=== PATIENT | male | born 1945 | race Caucasian/White ===

== ENCOUNTER 2020-10-26 15:58 | Inpatient (IN) ==
[2020-10-26 18:43] LABS: Basophils # (auto) 0.03 K/uL (0-0.2); Basophils % (auto) 0.3 %; Eosinophils # (auto) 0.09 K/uL (0-0.5); Hematocrit (blood only) 38.3 % (42-52); Hemoglobin 13.2 g/dL (14.0-18.0); Immature Granulocytes # (auto) 0.02 K/uL (0.00-0.02); Immature Granulocytes % (auto) 0.2 %; Lymphocytes # (auto) 0.96 K/uL (1.2-3.4); Lymphocytes % (auto) 10.3 %; Mean Corpuscular Hemoglobin 30.5 pg (25-34); Mean Corpuscular Hgb Conc 34.5 g/dL (32-36); Mean Corpuscular Volume 88.5 fL (80-100); Mean Platelet Volume 9.1 fL (7.4-10.4); Monocytes # (auto) 0.84 K/uL (0.11-0.59); Neutrophils # (auto) 7.37 K/uL (1.4-6.5); Neutrophils % (auto) 79.2 %; Platelet Count 352 K/uL (130-400); RDW Coefficient of Variation 14.2 % (11.5-14.5); RDW Standard Deviation 46.4 fL (36.4-46.3); Red Blood Count 4.33 M/uL (4.7-6.1); White Blood Count 9.31 K/uL (4.8-10.8)
[2020-10-26 19:07] LABS: Alanine Aminotransferase 32 U/L (12-78); Albumin Level 3.2 gm/dl (3.4-5.0); Aspartate Aminotransferase 51 U/L (15-37); BUN Creatinine Ratio 18.8 (10-20); Blood Urea Nitrogen 19 mg/dl (7-18); Carbon Dioxide 27 mmol/L (21-32); Chloride 98 mmol/L (98-107); Creatinine Clr Calc Pharmacy 82.5 ml/min; Est GFR (African American) 84.5 ml/min; Est GFR (Non-African American) 72.9 ml/min; Glucose 98 mg/dl (70-99); Magnesium 2.1 mg/dl (1.8-2.4); Potassium 3.6 mmol/L (3.5-5.1); Sodium 131 mmol/L (136-145)
[2020-10-26] MEDS ORDERED: OPTIRAY 320 125ml IV ONE (19:12)
[2020-10-26 19:16] LABS: Albumin Globulin Ratio 0.6 (0.9-2); Alkaline Phosphatase 96 U/L (45-117); Bilirubin Direct 0.2 mg/dl (0-0.2); Bilirubin,Total 0.6 mg/dl (0.2-1); C Reactive Protein 1.83 mg/dl (0-0.29); NT Pro B Type Natriuretic Pept 363 pg/ml (0-900); Phosphorus 3.6 mg/dl (2.5-4.9); Total Protein 8.2 gm/dl (6.4-8.2); Troponin I < 0.015 ng/ml (0-0.045)
--- NOTE | 2020-10-26 19:57 | CT Scan Report ---
CT head/brain wo con CLINICAL HISTORY: 75 years-old Male with amaurosis fugax. Acute intermittent loss of vision within t he right eye TECHNIQUE: Multiple axial CT images of the head were obtained without contrast. A dose lowering tech nique was utilized adhering to the principles of ALARA. COMPARISON: None. FINDINGS: No acute intracranial hemorrhage, midline shift, intracranial mass, hydrocephalus, territorial ischem ia or abnormal extra-axial collection. Age-related involutional changes. Mild white matter hypodensit ies suggestive of chronic microvascular ischemic disease. Cerebral vascular calcifications. The calvarium is intact. Trace mastoid effusions. Mild mucosal thickening of the ethmoid sinuses. Pa rtially imaged left maxillary periapical cyst. Unremarkable soft tissues and orbits. IMPRESSION: No acute intracranial abnormality. ACT 112: Negative or not required by law. The above report was generated using voice recognition software. It may contain grammatical, syntax o r spelling errors. Electronically signed by: Silverio Kc M.D. 10/26/2020 7:50 PM
--- NOTE | 2020-10-26 20:29 | CT Scan Report ---
CT angio chest PE protocol, CT abd pelvis IV con only HISTORY: 75 years-old Male with PE. Acute chest and abdominal pain with weight loss TECHNIQUE: Multiple CTA images of the chest were obtained after the intravenous administration of 119 ml Optiray. Coronal and sagittal MIPS were obtained from the axial data set and were submitted for review. All measurements were obtained according to NASCET criteria. CT abdomen pelvis with IV contr ast only was also obtained. A dose lowering technique was utilized adhering to the principles of HOLLY Arias. COMPARISON: CT abdomen and pelvis 04/08/2006. FINDINGS: CTA: Mild cardiomegaly. Pericardial effusion measures up to 9 mm anteriorly. Moderate coronary artery calc ifications. Fusiform dilation of the ascending thoracic aorta, 4.7 x 4.7 cm. Extensive associated tho racic atherosclerosis. The descending thoracic aorta measures up to 3.5 cm at the level of the diaphr agmatic hiatus. No dissection. Patency of the imaged great vessels. Unremarkable pulmonary artery. No pulmonary emboli identified. CT CHEST: Unremarkable thyroid. Bulky pathologic mediastinal and hilar adenopathy include subcarinal adenopathy measuring up to 6.9 x 3.5 cm. Pathologic periesophageal retrocrural lymph nodes are also present. Th ere is circumferential masslike thickening involving the distal esophagus with paraesophageal inflamm ation. Emphysema with bulla of the left upper lobe and lingula. Bronchial wall thickening suggestive of bron chitis. No pneumothorax, pleural effusion or overt pulmonary edema. Mild linear scarring/atelectasis of the lung bases. There are 4 solid nodules of the left lower lobe which measure up to 4 mm (please see bookmarks). There are a few nodules of the right lower lobe measuring up to 6 mm on image 171. Th ere are a few solid nodules of the right middle lobe measuring up to 4 mm. Central airways are patent . Unremarkable soft tissues. Degenerative changes of the spine and shoulders. Mild wedging involving a few lower thoracic vertebral segments is likely chronic. CT ABDOMEN/PELVIS: No pneumatosis or pneumoperitoneum. The spleen measures within the upper limits of normal in size and has increased in size from comparison measuring up to 12.6 cm on today's study. There are a few scat tered ill-defined slightly hypodense lesions of the spleen, the largest which measures up to 1.2 cm w hich appears new from comparison. Unremarkable pancreas. Nodular thickening of the left greater than right adrenal gland has progressed from comparison. Unremarkable gallbladder. Hepatic steatosis. Ther e are a few scattered hepatic cysts redemonstrated measuring up to 9 mm within the left hepatic lobe. Patency of the hepatic and portal veins. Numerous bilateral renal cysts with scattered subcentimeter hypodensities, several of which are too s mall to characterize. There is a 10 mm hyperdense lesion of the inferior pole left kidney with two in termediate density 9 mm lesions of the right kidney also noted. There is increased attenuation with d istention of the superior pole and interpolar aspect of the right kidney. Mild urinary bladder wall t hickening with partial distention. Prostamegaly. 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 Pathologic bulky retroperitoneal adenopathy with pathologic gastrohepatic and periportal lymph nodes also present. Subcarinal lymph nodes are centrally necrotic, notably a 3.5 x 2.8 cm intraperitoneal l ymph node on image 149. No bowel obstruction. Mild fecal retention. Ventral abdominal wall hernia with diastases of 8.1 cm co ntains mesenteric fat and nonobstructed large and small bowel. Scattered small bowel air-fluid levels . Small left greater than right fat and bowel-containing inguinal hernias. The appendix is not diagno stically visualized. No acute fracture. Degenerative changes of the spine, pelvis and hips. IMPRESSION: 1. No pulmonary emboli. 2. Bulky pathologic adenopathy of the chest, abdomen and pelvis as above notably involves the mediast inum, lisette and retroperitoneum. Differential considerations include metastatic disease versus lymphom a. Oncologic follow-up is needed 3. Masslike thickening of the distal esophagus requires further evaluation with endoscopy. 4. The spleen measures within the upper limits of normal in size and demonstrates a few scattered ill -defined hypodensities which appear new from 2007. Follow-up recommended to exclude metastasis. 5. Large hyperattenuating filling defect measuring over 3 cm involving the superior pole and interpol ar aspect of the right kidney is suspicious for neoplasm. Hemorrhage/debris considered less likely. 6. Bowel containing ventral abdominal wall and inguinal hernias. No bowel obstruction. 7. Scattered bilateral solid pulmonary nodules measure up to 6 mm. Follow-up is needed. 8. Small to moderate pericardial effusion. 9. Bilateral renal cysts with a few subcentimeter intermediate hyperattenuating lesions as above sugg estive of hyperdense cysts versus solid lesions. Findings could be correlated with ultrasound. 10. Additionally findings as above. ACT 112: Negative or not required by law. The above report was generated using voice recognition software. It may contain grammatical, syntax o r spelling errors. Electronically signed by: Silverio Kc M.D. 10/26/2020 8:27 PM
--- NOTE | 2020-10-26 20:36 | Emergency Department Note ---
Impression & Plan Visual disturbance, Esophageal thickening, Lymphadenopathy ED Provider Note NAME: MALACHI HOOD AGE: 75 SEX: M ARRIVES VIA: Walk-In INFORMANT: Patient, ED PROVIDER(S): Juan Ramon Mills MD CHIEF COMPLAINT: Transient right eye vision loss, SOB, weight loss. PLAN: Disposition: Admit MEDICAL DECISION MAKING: The patient is a pleasant 75-year-old gentleman who presents to the emergency department [facility] of constellation of symptoms including episode of loss of vision yesterday that he describes as havi ng a blackening of his vision "like a filter", which subsequently resolved this morning in addition to progressive shortness of breath and chest tightness over the past several days which she reports has been present to some degree over the past year. He further reports that he has had recent weight loss. He denies any fevers, chills, cough, congestion, GI or symptoms. On arrival the patient is in no acute distress, afebrile stable vital signs. He has no focal neurologic deficits at this time. Visual ramos are grossly intact. Firm, mobile, nontender right supraclavicular LAD. EKG without overt acute ischemia. CXR negative for acute cardiopulmonary process . WBC and platelets wnl. H/H 13.2/38.3 without prior for comparison. ESR and CRP slightly elevated at 43 and 1.8, respectively. Chemistry without acidosis. Electrolytes unremarkable. LFTs without significant abnormality. BNP wnl. Troponin negative/undetectable. TSH wnl. UA without convincing evidence of infection. Covid-[address] head and CTA head and neck negative for ischemia, ICH or severe narrowing or occlusion of large vessels. Carotid artery disease is noted. CTA of the chest negative for PE. CT chest and abd/pelvis demonstrate bulky pathologic adenopathy of the chest, abdomen and pelvis involving the mediastinum, lisette and retroperitoneum suspicous for metastatic disease versus lymphoma. Additional f indings including masslike thickening of the distal esophagus, few scattered ill-defined splenic hypodensities, large hyperattenuating filling defect measuring over 3 cm involving the superior pole and interpolar aspect of the right kidney is suspicious for neoplasm. Scattered bilateral solid pulmonary nodules measure up to 6 mm. Small to moderate pericardial effusion and bilateral renal cysts with a few subcentimeter intermediate hyperattenuating lesions as above suggestive of hyperdense cysts versus solid lesions. I performed a limited bedside cardiac US with demonstrated small pericardial effusion without overt evidence tamponade. Upon re-evaluation the patient denied any recurrence of vi sual changes. He denies SOB at rest. Findings were reviewed. Patient agrees with plan for admission. Case was discussed with MELANIA Pulido hospitalist, who will evaluate the patient for admission. Triage Nursing notes reviewed and agree them. Prior medical records reviewed Vital Signs: reviewed and remarkable for hypertension. Differential diagnosis: Infection, dehydration, metabolic abnormality, hypo/hyperglycemia, electrolyte disturbance, anemia, hypoxia, cardiac sources, intracerebral event, toxicologic, neurologic, as well as other pathologies. ER treatment provided: See below. Diagnostics interpreted by me: ECG: Sinus rhythm with sinus arrhythmia, 91 bpm, no ectopy, no overt ST elevation or depression, QTC 450, QRS 80. Cardiac Monitoring: An order for continuous cardiac monitoring was placed and demonstrated sinus rhythm with sinus arrhythmia, 91 bpm, no ectopy. Laboratory studies: See below Imaging studies: See below Consultation(s): Case was discussed with MELANIA Pulido hospitalist, who will evaluate the patient for admission. HPI: The patient is a pleasant 75-year-old gentleman who presents to the emergency department [facility] for evaluation of constellation of symptoms including episode of loss of vision yesterday that he describes as having a blackening of his vision "like a filter", which subsequently resolved this morning in addition to progressive shortness of breath and chest tightness over the past several days which she reports has been present to some degree over the past year. He further reports that he has had recent weight loss. He denies any fevers, chills, cough, congestion, GI or symptoms. ROS: See above HPI for pertinent positives & negatives. A total of 10 systems reviewed and were otherwise negative. PAST MEDICAL HISTORY:See Below PAST SURGICAL HISTORY:See Below FAMILY HISTORY:See Below SOCIAL HISTORY:See Below HOME MEDICATIONS:See Below ALLERGIES:See Below VITALS:See Below PHYSICAL EXAMINATION: GENERAL: Awake, alert, fatigued-appearing, in no distress HENT: Normocephalic, atraumatic. Oropharynx with dry mucous membranes and otherwise unremarkable. EYES: Normal conjunctiva. Sclera non-icteric. EOMI. No nystamgus. PEARRL. NECK: Supple. No nuchal rigidity. FROM. No JVD. Firm, mobile, nontender right supraclavicular LAD. RESPIRATORY: Clear to auscultation. CARDIAC: Regular rate, normal rhythm. Extremities warm and well perfused. Pulses equal. ABDOMEN: Soft, non-distended. No tenderness to palpation. No rebound or guarding. No masses. RECTAL: Deferred. MUSCULOSKELETAL: Chest examination reveals no tenderness. The back is symmetrical on inspection without obvious abnormality. There is no CVA tenderness to palpation. No joint edema. LOWER EXTREMITIES: Calves are equal size bilaterally and non-tender. No edema. No discoloration. NEURO: Normal sensorium. No sensory or motor deficits noted. Visual ramos grossly intact. CNII-XII grossly intact. 5/5 strength and SILT x 4 extremities. Cerebellar function intact including [id number], alternating palms, [id number]. SKIN: No rash or jaundice noted. Juan Ramon Mills MD Past Med/Surg History Medical History Hypertension PTSD (post-traumatic stress disorder) Surgical History History of appendectomy History of exploratory laparotomy Family History Other Cancer Social History Smoking Status: Former smoker Second Hand Exposure: Yes (Growing up both parents smoked); Hx Alcohol Use: No Hx Substance Use: No Preferred Language: Burkinan Communication Ability: Effective Deputy County Clerk Required: No Beliefs That Will Affect Care: None Current Living Situation: Alone Feels Safe at Home: Yes Assistive Devices: Denture - Upper Allergies Allergies Allergy/AdvReac Type Severity Reaction Status Date / Time No Known Allergies Allergy Unknown Verified 10/26/20 18:47 Home Meds Home Medications Medication Instructions Recorded Confirmed lisinopril 1 tab PO DAILY 10/26/20 10/26/20 metoprolol succinate 1 tab PO DAILY 10/26/20 10/26/20 Results & Data (ED) Vital Signs Vital Signs - 24 hr 10/26/20 16:08 10/26/20 18:36 10/26/20 20:24 Temperature 36.5 C Temperature Source Temporal Artery Scan Pulse Rate 107 H Pulse Rate [Apical] 91 H 88 Respiratory Rate 18 18 12 Blood Pressure 148/73 H Blood Pressure [Right Arm] 153/99 H 153/99 H Blood Pressure Mean 98 Blood Pressure Mean [Right Arm] 117 117 Pulse Oximetry 97 99 94 Oxygen Delivery Method Room Air Sepsis Recent Fever Within 48 Hours No Sepsis New/Unexplained Change in Mental Status No Sepsis Action Taken by Nursing No Action Required 10/26/20 22:17 Temperature Temperature Source Pulse Rate Pulse Rate [Apical] 82 Respiratory Rate 24 Blood Pressure Blood Pressure [Right Arm] 174/100 H Blood Pressure Mean Blood Pressure Mean [Right Arm] 124 Pulse Oximetry 96 Oxygen Delivery Method Room Air Sepsis Recent Fever Within 48 Hours Sepsis New/Unexplained Change in Mental Status Sepsis Action Taken by Nursing Laboratory Data Attestation: I reviewed the patient's lab results. Result diagrams: 10/26/20 18:30 10/26/20 18:30 Lab Results 10/26/20 10/26/20 10/26/20 Range/Units 18:26 18:26 18:30 WBC 9.31 (4.8-10.8) K/uL RBC 4.33 L (4.7-6.1) M/uL Hgb 13.2 L (14.0-18.0) g/dL Hct 38.3 L (42-52) % MCV 88.5 (80-100) fL MCH 30.5 (25-34) pg MCHC 34.5 (32-36) g/dL RDW Std Deviation 46.4 H (36.4-46.3) fL RDW Coeff of Francois 14.2 (11.5-14.5) % Plt Count 352 (130-400) K/uL MPV 9.1 (7.4-10.4) fL Immature Gran % (Auto) 0.2 % Neut % (Auto) 79.2 % Lymph % (Auto) 10.3 % [place] % (Auto) 9.0 % Eos % (Auto) 1.0 % Baso % (Auto) 0.3 % Neut # (Auto) 7.37 H (1.4-6.5) K/uL Lymph # (Auto) 0.96 L (1.2-3.4) K/uL [place] # (Auto) 0.84 H (0.11-0.59) K/uL Eos # (Auto) 0.09 (0-0.5) K/uL Baso # (Auto) 0.03 (0-0.2) K/uL Immature Gran # (Auto) 0.02 (0.00-0.02) K/uL ESR (0-20) mm/hr Sodium (136-145) mmol/L Potassium (3.5-5.1) mmol/L Chloride (98-107) mmol/L Carbon Dioxide (21-32) mmol/L Anion Gap (3-11) BUN (7-18) mg/dl Creatinine (0.6-1.4) mg/dl Est Cr Clr Drug Dosing ml/min Est GFR ( Amer) ml/min Est GFR (Non-Af Amer) ml/min BUN/Creatinine Ratio (10-20) Glucose (70-99) mg/dl Calcium (8.5-10.1) mg/dl Phosphorus (2.5-4.9) mg/dl Magnesium (1.8-2.4) mg/dl Total Bilirubin (0.2-1) mg/dl Direct Bilirubin (0-0.2) mg/dl AST (15-37) U/L ALT (12-78) U/L Alkaline Phosphatase (45-117) U/L Troponin I (0-0.045) ng/ml C-Reactive Protein (0-0.29) mg/dl NT-Pro-B Natriuret Pep (0-900) pg/ml Total Protein (6.4-8.2) gm/dl Albumin (3.4-5.0) gm/dl Globulin (2.5-4.0) gm/dl Albumin/Globulin Ratio (0.9-2) TSH (0.300-4.500) uIu/ml COVID-19 Eval Order Covid19 at [facility] SARS-CoV-2 (PCR) NEGATIVE (Negative) 10/26/20 10/26/20 Range/Units 18:30 18:30 WBC (4.8-10.8) K/uL RBC (4.7-6.1) M/uL Hgb (14.0-18.0) g/dL Hct (42-52) % MCV (80-100) fL MCH (25-34) pg MCHC (32-36) g/dL RDW Std Deviation (36.4-46.3) fL RDW Coeff of Francois (11.5-14.5) % Plt Count (130-400) K/uL MPV (7.4-10.4) fL Immature Gran % (Auto) % Neut % (Auto) % Lymph % (Auto) % [place] % (Auto) % Eos % (Auto) % Baso % (Auto) % Neut # (Auto) (1.4-6.5) K/uL Lymph # (Auto) (1.2-3.4) K/uL [place] # (Auto) (0.11-0.59) K/uL Eos # (Auto) (0-0.5) K/uL Baso # (Auto) (0-0.2) K/uL Immature Gran # (Auto) (0.00-0.02) K/uL ESR 43 H (0-20) mm/hr Sodium 131 L (136-145) mmol/L Potassium 3.6 (3.5-5.1) mmol/L Chloride 98 (98-107) mmol/L Carbon Dioxide 27 (21-32) mmol/L Anion Gap 6.0 (3-11) BUN 19 H (7-18) mg/dl Creatinine 1.01 (0.6-1.4) mg/dl Est Cr Clr Drug Dosing 82.5 ml/min Est GFR ( Amer) 84.5 ml/min Est GFR (Non-Af Amer) 72.9 ml/min BUN/Creatinine Ratio 18.8 (10-20) Glucose 98 (70-99) mg/dl Calcium 9.0 (8.5-10.1) mg/dl Phosphorus 3.6 (2.5-4.9) mg/dl Magnesium 2.1 (1.8-2.4) mg/dl Total Bilirubin 0.6 (0.2-1) mg/dl Direct Bilirubin 0.2 (0-0.2) mg/dl AST 51 H (15-37) U/L ALT 32 (12-78) U/L Alkaline Phosphatase 96 (45-117) U/L Troponin I < 0.015 (0-0.045) ng/ml C-Reactive Protein 1.83 H (0-0.29) mg/dl NT-Pro-B Natriuret Pep 363 (0-900) pg/ml Total Protein 8.2 (6.4-8.2) gm/dl Albumin 3.2 L (3.4-5.0) gm/dl Globulin 5.0 H (2.5-4.0) gm/dl Albumin/Globulin Ratio 0.6 L (0.9-2) TSH 4.260 (0.300-4.500) uIu/ml COVID-19 Eval Order SARS-CoV-2 (PCR) (Negative) Administered Medications Discontinued Medications Ioversol (Optiray 320 125ml) 119 ml IV ONCE ONE Stop: 10/26/20 19:13 Last Admin: 10/26/20 19:13 Dose: 1 ml Documented by: [id number] Imaging Data Radiologist's Impression: Abdomen/Pelvis CT 10/26/20 18:11 CT angio chest PE protocol, CT abd pelvis IV con only HISTORY: 75 years-old Male with PE. Acute chest and abdominal pain with weight loss TECHNIQUE: Multiple CTA images of the chest were obtained after the intravenous administration of 119 ml Optiray. Coronal and sagittal MIPS were obtained from the axial data set and were submitted for review. All measurements were obtained according to NASCET criteria. CT abdomen pelvis with IV contrast only was also obtained. A dose lowering technique was utilized adhering to the principles of ALARA. COMPARISON: CT abdomen and pelvis 04/08/2006. FINDINGS: CTA: Mild cardiomegaly. Pericardial effusion measures up to 9 mm anteriorly. Moderate coronary artery calcifications. Fusiform dilation of the ascending thoracic aorta, 4.7 x 4.7 cm. Extensive associated thoracic atherosclerosis. The descending thoracic aorta measures up to 3.5 cm at the level of the diaphragmatic hiatus. No dissection. Patency of the imaged great vessels. Unremarkable pulmonary artery. No pulmonary emboli identified. CT CHEST: Unremarkable thyroid. Bulky pathologic mediastinal and hilar adenopathy include subcarinal adenopathy measuring up to 6.9 x 3.5 cm. Pathologic periesophageal retrocrural lymph nodes are also present. There is circumferential masslike thickening involving the distal esophagus with paraesophageal inflammation. Emphysema with bulla of the left upper lobe and lingula. Bronchial wall thickening suggestive of bronchitis. No pneumothorax, pleural effusion or overt pulmonary edema. Mild linear scarring/atelectasis of the lung bases. There are 4 solid nodules of the left lower lobe which measure up to 4 mm (please see bookmarks). There are a few nodules of the right lower lobe measuring up to 6 mm on image 171. There are a few solid nodules of the right middle lobe measuring up to 4 mm. Central airways are patent. Unremarkable soft tissues. Degenerative changes of the spine and shoulders. Mild wedging involving a few lower thoracic vertebral segments is likely chronic. CT ABDOMEN/PELVIS: No pneumatosis or pneumoperitoneum. The spleen measures within the upper limits of normal in size and has increased in size from comparison measuring up to 12.6 cm on today's study. There are a few scattered ill-defined slightly hypodense lesions of the spleen, the largest which measures up to 1.2 cm which appears new from comparison. Unremarkable pancreas. Nodular thickening of the left greater t cope right adrenal gland has progressed from comparison. Unremarkable gallbladder. Hepatic steatosis. There are a few scattered hepatic cysts redemonstrated measuring up to 9 mm within the left hepatic lobe. Patency of the hepatic and portal veins. Numerous bilateral renal cysts with scattered subcentimeter hypodensities, several of which are too small to characterize. There is a 10 mm hyperdense lesion of the inferior pole left kidney with two intermediate density 9 mm lesions of the right kidney also noted. There is increased attenuation with distention of the superior pole and interpolar aspect of the right kidney. Mild urinary bladder wall thickening with partial distention. Prostamegaly. 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 Pathologic bulky retroperitoneal adenopathy with pathologic gastrohepatic and periportal lymph nodes also present. Subcarinal lymph nodes are centrally necrotic, notably a 3.5 x 2.8 cm intraperitoneal lymph node on image 149. No bowel obstruction. Mild fecal retention. Ventral abdominal wall hernia with diastases of 8.1 cm contains mesenteric fat and nonobstructed large and small bowel. Scattered small bowel air-fluid levels. Small left greater than right fat and bowel-containing inguinal hernias. The appendix is not diagnostically visualized. No acute fracture. Degenerative changes of the spine, pelvis and hips. IMPRESSION: 1. No pulmonary emboli. 2. Bulky pathologic adenopathy of the chest, abdomen and pelvis as above notably involves the mediastinum, lisette and retroperitoneum. Differential considerations include metastatic disease versus lymphoma. Oncologic follow-up is needed 3. Masslike thickening of the distal esophagus requires further evaluation with endoscopy. 4. The spleen measures within the upper limits of normal in size and demonstrates a few scattered ill-defined hypodensities which appear new from 2006. Follow-up recommended to exclude metastasis. 5. Large hyperattenuating filling defect measuring over 3 cm involving the superior pole and interpolar aspect of the right kidney is suspicious for neoplasm. Hemorrhage/debris considered less likely. 6. Bowel containing ventral abdominal wall and inguinal hernias. No bowel obstruction. 7. Scattered bilateral solid pulmonary nodules measure up to 6 mm. Follow-up is needed. 8. Small to moderate pericardial effusion. 9. Bilateral renal cysts with a few subcentimeter intermediate hyperattenuating lesions as above suggestive of hyperdense cysts versus solid lesions. Findings could be correlated with ultrasound. 10. Additionally findings as above. ACT 112: Negative or not required by law. The above report was generated using voice recognition software. It may contain grammatical, syntax or spelling errors. Electronically signed by: Silverio Kc M.D. 10/26/2020 8:27 PM Chest CTA 10/26/20 18:11 CT angio chest PE protocol, CT abd pelvis IV con only HISTORY: 75 years-old Male with PE. Acute chest and abdominal pain with weight loss TECHNIQUE: Multiple CTA images of the chest were obtained after the intravenous administration of 119 ml Optiray. Coronal and sagittal MIPS were obtained from the axial data set and were submitted for review. All measurements were obtained according to NASCET criteria. CT abdomen pelvis with IV contrast only was also obtained. A dose lowering technique was utilized adhering to the principles of ALARA. COMPARISON: CT abdomen and pelvis 04/08/2006. FINDINGS: CTA: Mild cardiomegaly. Pericardial effusion measures up to 9 mm anteriorly. Moderate coronary artery calcifications. Fusiform dilation of the ascending thoracic a jimbo, 4.7 x 4.7 cm. Extensive associated thoracic atherosclerosis. The descending thoracic aorta measures up to 3.5 cm at the level of the diaphragmatic hiatus. No dissection. Patency of the imaged great vessels. Unremarkable pulmonary artery. No pulmonary emboli identified. CT CHEST: Unremarkable thyroid. Bulky pathologic mediastinal and hilar adenopathy include subcarinal adenopathy measuring up to 6.9 x 3.5 cm. Pathologic periesophageal re trocrural lymph nodes are also present. There is circumferential masslike thickening involving the distal esophagus with paraesophageal inflammation. Emphysema with bulla of the left upper lobe and lingula. Bronchial wall thickening suggestive of bronchitis. No pneumothorax, pleural effusion or overt pulmonary edema. Mild linear scarring/atelectasis of the lung bases. There are 4 solid nodules of the left lower lobe which measure up to 4 mm (please see bookmarks). There are a few nodules of the right lower lobe measuring up to 6 mm on image 171. There are a few solid nodules of the right middle lobe measuring up to 4 mm. Central airways are patent. Unremarkable soft tissues. Degenerative changes of the spine and shoulders. Mild wedging involving a few lower thoracic vertebral segments is likely chronic. CT ABDOMEN/PELVIS: No pneumatosis or pneumoperitoneum. The spleen measures within the upper limits of normal in size and has increased in size from comparison measuring up to 12.6 cm on today's study. There are a few scattered ill-defined slightly hypodense lesions of the spleen, the largest which measures up to 1.2 cm which appears new from comparison. Unremarkable pancreas. Nodular thickening of the left greater than right adrenal gland has progressed from comparison. Unremarkable gallbladder. Hepatic steatosis. There are a few scattered hepatic cysts redemonstrated measuring up to 9 mm within the left hepatic lobe. Patency of the hepatic and portal veins. Numerous bilateral renal cysts with scattered subcentimeter hypodensities, several of which are too small to characterize. There is a 10 mm hyperdense lesion of the inferior pole left kidney with two intermediate density 9 mm lesions of the right kidney also noted. There is increased attenuation with distention of the superior pole and interpolar aspect of the right kidney. Mild urinary bladder wall thickening with partial distention. Prostamegaly. 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 Pathologic bulky retroperitoneal adenopathy with pathologic gastrohepatic and periportal lymph nodes also present. Subcarinal lymph nodes are centrally necrotic, notably a 3.5 x 2.8 cm intraperitoneal lymph node on image 149. No bowel obstruction. Mild fecal retention. Ventral abdominal wall hernia with diastases of 8.1 cm contains mesenteric fat and nonobstructed large and small bowel. Scattered small bowel air-fluid levels. Small left greater than right fat and bowel-containing inguinal hernias. The appendix is not diagnostically visualized. No acute fracture. Degenerative changes of the spine, pelvis and hips. IMPRESSION: 1. No pulmonary emboli. 2. Bulky pathologic adenopathy of the chest, abdomen and pelvis as above notably involves the mediastinum, lisette and retroperitoneum. Differential considerations include metastatic disease versus lymphoma. Oncologic follow-up is needed 3. Masslike thickening of the distal esophagus requires further evaluation with endoscopy. 4. The spleen measures within the upper limits of normal in size and demonstrates a few scattered ill-defined hypodensities which appear new from 2006. Follow-up recommended to exclude metastasis. 5. Large hyperattenuating filling defect measuring over 3 cm involving the superior pole and interpolar aspect of the right kidney is suspicious for neoplasm. Hemorrhage/debris considered less likely. 6. Bowel containing ventral abdominal wall and inguinal hernias. No bowel obstruction. 7. Scattered bilateral solid pulmonary nodules measure up to 6 mm. Follow-up is needed. 8. Small to moderate pericardial effusion. 9. Bilateral renal cysts with a few subcentimeter intermediate hyperattenuating lesions as above suggestive of hyperdense cysts versus solid lesions. Findings could be correlated with ultrasound. 10. Additionally findings as above. ACT 112: Negative or not required by law. The above report was generated using voice recognition software. It may contain grammatical, syntax or spelling errors. Electronically signed by: Silverio Kc M.D. 10/26/2020 8:[address] 10/26/20 18:11 CT head/brain wo con CLINICAL HISTORY: 75 years-old Male with amaurosis fugax. Acute intermittent loss of vision within the right eye TECHNIQUE: Multiple axial CT images of the head were obtained without contrast. A dose lowering technique was utilized adhering to the principles of ALARA. COMPARISON: None. FINDINGS: No acute intracranial hemorrhage, midline shift, intracranial mass, hydrocephalus, territorial ischemia or abnormal extra-axial collection. Age-related involutional changes. Mild white matter hypodensities suggestive of chronic microvascular ischemic disease. Cerebral vascular calcifications. The calvarium is intact. Trace mastoid effusions. Mild mucosal thickening of the ethmoid sinuses. Partially imaged left maxillary periapical cyst. Unremarkable soft tissues and orbits. IMPRESSION: No acute intracranial abnormality. ACT 112: Negative or not required by law. The above report was generated using voice recognition software. It may contain grammatical, syntax or spelling errors. Electronically signed by: Silverio Kc M.D. 10/26/2020 7:50 PM Head CTA 10/26/20 18:11 CT angio neck with con, CT angio head w con CLINICAL HISTORY: 75 years-old Male with amaurosis fugax. Acute loss of vision within the right thigh COMPARISON STUDY: Head CT and CTA chest of same day TECHNIQUE: Following the IV administration of 119 mL of Optiray, CT angiogram of the head and neck was performed from the aortic arch to the skull apex. Images are reviewed in the axial, sagittal, and coronal planes. 3-D MIPS images are created and assessed. IV contrast was administered without complication. All measurements were calculated based on NASCET criteria. A dose lowering technique was utilized adhering to the principles of ALARA. CT DOSE: 3226.25 mGy.cm FINDINGS: Bulky pathologic mediastinal, and bilateral supraclavicular adenopathy. Emphysema. No pneumothorax. Degenerative changes of the spine. Trace mastoid effusions. No suspicious bone lesions. Atherosclerosis of the aorta. Patency of the innominate and imaged subclavian arteries. Mild to moderate atherosclerosis of the common carotid arteries. Severe atherosclerosis of the right carotid bulb and proximal right ICA results in approximately 50% luminal narrowing. Moderate to extensive atherosclerosis of the left carotid bulb and proximal left ICA results in less than 50% stenosis. Tortuosity of the distal cervical segments. Atherosclerosis of the cavernous and supraclinoid segments without significant stenosis. Areas of mild luminal narrowing involving the right MCA. The middle and anterior cerebral arteries are otherwise patent and unremarkable. Dominant right vertebral artery. The vertebral arteries are patent and otherwise within normal limits. The basilar and posterior cerebral arteries. Cerebral venous sinuses are patent. No abnormal intracranial enhancement. IMPRESSION: 1. Severe atherosclerotic plaque of the right carotid bulb and proximal right ICA results in 50% stenosis. 2. Moderate to extensive atherosclerosis of the left carotid bulb and proximal left ICA results in less than 50% stenosis. 3. Otherwise unremarkable CTA of the head and neck. 4. Bulky pathologic mediastinal and supraclavicular adenopathy suspicious for lymphoma. ACT 112: Negative or not required by law. The above report was generated using voice recognition software. It may contain grammatical, syntax or spelling errors. Electronically signed by: Silverio Kc M.D. 10/26/2020 8:35 PM Neck CTA 10/26/20 18:11 CT angio neck with con, CT angio head w con CLINICAL HISTORY: 75 years-old Male with amaurosis fugax. Acute loss of vision within the right thigh COMPARISON STUDY: Head CT and CTA chest of same day TECHNIQUE: Following the IV administration of 119 mL of Optiray, CT angiogram of the head and neck was performed from the aortic arch to the skull apex. Images are reviewed in the axial, sagittal, and coronal planes. 3-D MIPS images are created and assessed. IV contrast was administered without complication. All measurements were calculated based on NASCET criteria. A dose lowering technique was utilized adhering to the principles of ALARA. CT DOSE: 3226.25 mGy.cm FINDINGS: Bulky pathologic mediastinal, and bilateral supraclavicular adenopathy. Emphysema. No pneumothorax. Degenerative changes of the spine. Trace mastoid effusions. No suspicious bone lesions. Atherosclerosis of the aorta. Patency of the innominate and imaged subclavian arteries. Mild to moderate atherosclerosis of the common carotid arteries. Severe atherosclerosis of the right carotid bulb and proximal right ICA results in approximately 50% luminal narrowing. Moderate to extensive atherosclerosis of the left carotid bulb and proximal left ICA results in less than 50% stenosis. Tortuosity of the distal cervical segments. Atherosclerosis of the cavernous and supraclinoid segments without significant stenosis. Areas of mild luminal narrowing involving the right MCA. The middle and anterior cerebral arteries are otherwise patent and unremarkable. Dominant right vertebral artery. The vertebral arteries are patent and otherwise within normal limits. The basilar and posterior cerebral arteries. Cerebral venous sinuses are patent. No abnormal intracranial enhancement. IMPRESSION: 1. Severe atherosclerotic plaque of the right carotid bulb and proximal right ICA results in 50% stenosis. 2. Moderate to extensive atherosclerosis of the left carotid bulb and proximal left ICA results in less than 50% stenosis. 3. Otherwise unremarkable CTA of the head and neck. 4. Bulky pathologic mediastinal and supraclavicular adenopathy suspicious for lymphoma. ACT 112: Negative or not required by law. The above report was generated using voice recognition software. It may contain grammatical, syntax or spelling errors. Electronically signed by: Silverio Kc M.D. 10/26/2020 8:35 PM Discharge Plan Visit Data Chief Complaint: Illness Stated Complaint: ILLNESS ED Provider: Juan Ramon Mills Discharge Problem: Visual disturbance, Esophageal thickening, Lymphadenopathy Patient Disposition: Admitted As Inpatient Discharge Instructions Interventions: ED Discharge Assessment Last Done: 10/27/20 01:18
--- NOTE | 2020-10-26 20:37 | CT Scan Report ---
CT angio neck with con, CT angio head w con CLINICAL HISTORY: 75 years-old Male with amaurosis fugax. Acute loss of vision within the right th igh COMPARISON STUDY: Head CT and CTA chest of same day TECHNIQUE: Following the IV administration of 119 mL of Optiray, CT angiogram of the head and neck wa s performed from the aortic arch to the skull apex. Images are reviewed in the axial, sagittal, and c oronal planes. 3-D MIPS images are created and assessed. IV contrast was administered without complic ation. All measurements were calculated based on NASCET criteria. A dose lowering technique was util ized adhering to the principles of ALARA. CT DOSE: 3226.25 mGy.cm FINDINGS: Bulky pathologic mediastinal, and bilateral supraclavicular adenopathy. Emphysema. No pneumothorax. D egenerative changes of the spine. Trace mastoid effusions. No suspicious bone lesions. Atherosclerosis of the aorta. Patency of the innominate and imaged subclavian arteries. Mild to moder ate atherosclerosis of the common carotid arteries. Severe atherosclerosis of the right carotid bulb and proximal right ICA results in approximately 50% luminal narrowing. Moderate to extensive atherosc lerosis of the left carotid bulb and proximal left ICA results in less than 50% stenosis. Tortuosity of the distal cervical segments. Atherosclerosis of the cavernous and supraclinoid segments without s ignificant stenosis. Areas of mild luminal narrowing involving the right MCA. The middle and anterior cerebral arteries are otherwise patent and unremarkable. Dominant right vertebral artery. The verteb ral arteries are patent and otherwise within normal limits. The basilar and posterior cerebral arteri es. Cerebral venous sinuses are patent. No abnormal intracranial enhancement. IMPRESSION: 1. Severe atherosclerotic plaque of the right carotid bulb and proximal right ICA results in 50% sten osis. 2. Moderate to extensive atherosclerosis of the left carotid bulb and proximal left ICA results in le ss than 50% stenosis. 3. Otherwise unremarkable CTA of the head and neck. 4. Bulky pathologic mediastinal and supraclavicular adenopathy suspicious for lymphoma. ACT 112: Negative or not required by law. The above report was generated using voice recognition software. It may contain grammatical, syntax o r spelling errors. Electronically signed by: Silverio Kc M.D. 10/26/2020 8:35 PM
--- NOTE | 2020-10-26 22:21 | History & Physical Report ---
Date of Service October 26, 2020 Assessment & Plan (1) Visual disturbance: Plan: 75yo male with second episode of monocular visual disturbance. Patient describes "a filter" over his right eye as well as darkened vision with streaking. He has an moderately elevated ESR as well of 43. No additional evidence for GCA. Patient found with severe atherosclerotic plaque of the right carotid bulb and proximal right ICA with 50% stenosis. Ddx to include carotid disease, cardioembolic phenomenon. ?GCA given elevation of ESR - with findings of diffuse bulky LAD this may be co-occurring with lymphoma - may be seen in [facility]? -Check 2D echo -Check A1C and Lipid panel -[facility] -Will hold on ASA for now as patient may require excisional biopsy in the near future. -Will hold off on Steroids for now as patient may be getting biopsy in AM - ?alteration of results (2) Lymphadenopathy: Plan: Patient incidentally found to have bulky pathologic adenopathy of chest, abdomen and pelvis suspicious for lymphoma. Will need to have biopsy performed for diagnosis. Findings concerning for lymphoma vs metastatic disease. Additional findings of concern include masslike thickening of the distal esophagus as well as several ill-defined hypodensities in the spleen which may represent metastasis, large lesion of superior pole of right kidney suspicious for neoplasm and small to moderate pericardial effusion (bedside US per ER attending with no tamponade physiology) -General surgery assistance appreciated -NPO after midnight -Oncology consultation appreciated Findings of diffuse lymphadenopathy briefly discussed with patient at time of admission. Explained to him that a biopsy would be needed for further diagnosis. (3) Esophageal thickening: Plan: CT of the chest revealed masslike thickening of the distal esophagus. ?Malignant process. He denies pain or difficulty swallowing. -GI consultation appreciated for possible EGD -Patient is NPO (4) Hypertension: Plan: Blood pressure well controlled at present. He is currently taking Lisinopril and Metoprolol, uncertain of doses. -Hold for now, request records -Continue to monitor blood pressure Plan: F/E/N - Heplock. Electroltyes WNL. NPO for now Ppx - SCDs Code - Full per discussion with patient Dispo - Admit to medical with telemetry monitoring History of Present Illness Chief Complaint: right visual loss Primary Care Provider: NO PCP Zhen Morales is a 75yo male with history of HTN presenting with transient monocular visual disturbance. Patient's first event occurred appx 3 weeks ago when he had an episode of visual disturbance in his right eye. He describes it as "a filter" covering his eye. He denies eye pain, headache, scalp tenderness, jaw claudication. He reports feeling generalized fatigue and malaise during this episode and his symptoms lasted appx 3 days then returned to normal. This morning around 11:00 patient had a similar episode - states that he had "a filter" over his right eye. Then his vision became dark with blue streaks. [facility] these symptoms and was subsequently sent to the ER. He reports approximately 70% improvement in his symptoms since this AM. He denies fever/chills/weakness/fatigue. Denies headache/scalp tenderness/jaw claudication/rashes/shoulder girdle weakness/focal numbness or weakness. He denies nausea/vomiting/diarrhea/constipation. Denies slurred speech. Patient found to have bulky LAD in neck, chest and abdomen on imaging. He does endorse some unintentional weight loss - reports his weight was 276# on 05/24/20 then was 229# today. Denies night sweats. Appetite has been decreased since May. No additional complaints at this time. Allergies Allergy/AdvReac Type Severity Reaction Status Date / Time No Known Allergies Allergy Unknown Verified 10/26/20 18:47 Home Medications Medication Instructions Recorded Confirmed Type lisinopril 1 tab PO DAILY 10/26/20 10/26/20 History metoprolol succinate 1 tab PO DAILY 10/26/20 10/26/20 History Past Med/Surg History Medical History (Updated 10/27/20 @ 00:01 by Ananya Neves DO) Hypertension PTSD (post-traumatic stress disorder) Surgical History (Updated 10/26/20 @ 23:55 by Ananya Neves DO) History of appendectomy History of exploratory laparotomy Family History (Updated 10/26/20 @ 23:56 by Ananya Neves DO) Other Cancer Social History (Updated 10/26/20 @ 23:56 by Ananya Neves DO) Smoking Status: Former smoker Hx Alcohol Use: No Hx Substance Use: No Feels Safe at Home: Yes Review of Systems Review of Systems: All systems reviewed & are unremarkable except as noted in HPI & below Physical Exam Physical Exam: General: patient resting comfortably, NAD, non-toxic in appearance, AA&O x 4 Skin: warm, dry, intact, scattered bruises on forearms and hands HEENT: NC/AT, PERRL, EOMI, anicteric sclera, conjunctiva without injection, external ear normal to inspection and nontender, nares patent, moist mucus membranes, dentition intact, no oropharyngeal lesions, neck supple, trachea midline, +LAD - firm palpable node right neck, mobile, nontender, no thyromegaly, no JVD Heart: +S1/S2, regular, no m/r/g Lungs: equal air entry bilaterally, no rales/rhonchi/wheezes Abd: +BS, soft, NT/ND, post-operative changes, no masses/organomegaly/ascites Ext: warm, 2+ pulses in UE/LE bilaterally, no clubbing/cyanosis or edema Neuro: nonfocal, patient AA&O x 4, speech intact, no facial droop, moving all extremities on command with equal strength 5/5 Results & Data Results & Data ([facility]) Vital Signs (Past 12 Hours) Vital Signs Temp Pulse Pulse Resp BP BP Pulse Ox 10/26/20 22:17 82 24 174/100 H 96 10/26/20 20:24 88 12 153/99 H 94 10/26/20 18:36 91 H 18 153/99 H 99 10/26/20 16:08 36.5 C 107 H 18 148/73 H 97 Laboratory Results Laboratory Results WBC 9.31 K/uL (4.8-10.8) 10/26/20 18:30 RBC 4.33 M/uL (4.7-6.1) L 10/26/20 18:30 Hgb 13.2 g/dL (14.0-18.0) L 10/26/20 18:30 Hct 38.3 % (42-52) L 10/26/20 18:30 MCV 88.5 fL (80-100) 10/26/20 18:30 MCH 30.5 pg (25-34) 10/26/20 18:30 MCHC 34.5 g/dL (32-36) 10/26/20 18:30 RDW Std Deviation 46.4 fL (36.4-46.3) H 10/26/20 18:30 RDW Coeff of Francois 14.2 % (11.5-14.5) 10/26/20 18:30 Plt Count 352 K/uL (130-400) 10/26/20 18: MPV 9.1 fL (7.4-10.4) 10/26/20 18:30 Immature Gran % (Auto) 0.2 % 10/26/20 18:30 Neut % (Auto) 79.2 % 10/26/20 18:30 Lymph % (Auto) 10.3 % 10/26/20 18:30 Pine % (Auto) 9.0 % 10/26/20 18:30 Eos % (Auto) 1.0 % 10/26/20 18:30 Baso % (Auto) 0.3 % 10/26/20 18: Neut # (Auto) 7.37 K/uL (1.4-6.5) H 10/26/20 18:30 Lymph # (Auto) 0.96 K/uL (1.2-3.4) L 10/26/20 18:30 Pine # (Auto) 0.84 K/uL (0.11-0.59) H 10/26/20 18:30 Eos # (Auto) 0.09 K/uL (0-0.5) 10/26/20 18:30 Baso # (Auto) 0.03 K/uL (0-0.2) 10/26/20 18: Immature Gran # (Auto) 0.02 K/uL (0.00-0.02) 10/26/20 18:30 ESR 43 mm/hr (0-20) H 10/26/20 18:30 Sodium 131 mmol/L (136-145) L 10/26/20 18:30 Potassium 3.6 mmol/L (3.5-5.1) 10/26/20 18:30 Chloride 98 mmol/L (98-107) 10/26/20 18:30 Carbon Dioxide 27 mmol/L (21-32) 10/26/20 18:30 Anion Gap 6.0 (3-11) 10/26/20 18:30 BUN 19 mg/dl (7-18) H 10/26/20 18:30 Creatinine 1.01 mg/dl (0.6-1.4) 10/26/20 18:30 Est Cr Clr Drug Dosing 82.5 ml/min 10/26/20 18:30 Est GFR ( Amer) 84.5 ml/min 10/26/20 18:30 Est GFR (Non-Af Amer) 72.9 ml/min 10/26/20 18:30 BUN/Creatinine Ratio 18.8 (10-20) 10/26/20 18:30 Glucose 98 mg/dl (70-99) 10/26/20 18:30 Calcium 9.0 mg/dl (8.5-10.1) 10/26/20 18:30 Phosphorus 3.6 mg/dl (2.5-4.9) 10/26/20 18:30 Magnesium 2.1 mg/dl (1.8-2.4) 10/26/20 18:30 Total Bilirubin 0.6 mg/dl (0.2-1) 10/26/20 18:30 Direct Bilirubin 0.2 mg/dl (0-0.2) 10/26/20 18:30 AST 51 U/L (15-37) H 10/26/20 18:30 ALT 32 U/L (12-78) 10/26/20 18:30 Alkaline Phosphatase 96 U/L (45-117) 10/26/20 18:30 Troponin I < 0.015 ng/ml (0-0.045) 10/26/20 18:30 C-Reactive Protein 1.83 mg/dl (0-0.29) H 10/26/20 18:30 NT-Pro-B Natriuret Pep 363 pg/ml (0-900) 10/26/20 18:30 Total Protein 8.2 gm/dl (6.4-8.2) 10/26/20 18:30 Albumin 3.2 gm/dl (3.4-5.0) L 10/26/20 18:30 Globulin 5.0 gm/dl (2.5-4.0) H 10/26/20 18:30 Albumin/Globulin Ratio 0.6 (0.9-2) L 10/26/20 18:30 TSH 4.260 uIu/ml (0.300-4.500) 10/26/20 18:30 Urine Color Yellow 10/26/20 22:45 Urine Appearance Cloudy (Clear) A 10/26/20 22:45 Urine pH 6.0 (4.5-7.5) 10/26/20 22:45 Ur Specific [place] > 1.045 (1.000-1.030) H 10/26/20 22:45 Urine Protein Trace (Negative) H 10/26/20 22:45 Urine Glucose (UA) Negative (Negative) 10/26/20 22:45 Urine Ketones Negative (Negative) 10/26/20 22:45 Urine Blood 3+ (Negative) H 10/26/20 22:45 Urine Nitrite Negative (Negative) 10/26/20 22:45 Urine Bilirubin Negative (Negative) 10/26/20 22:45 Urine Urobilinogen Negative (Negative) 10/26/20 22:45 Ur Leukocyte Esterase Negative (Negative) 10/26/20 22:45 Urine WBC (Auto) 5-10 /hpf (0-5) H 10/26/20 22:45 Urine RBC (Auto) >30 /hpf (0-4) H 10/26/20 22:45 U Hyaline Cast (Auto) 5-10 /lpf (0-5) H 10/26/20 22:45 U Epithel Cells (Auto) 10-20 /lpf (0-5) H 10/26/20 22:45 Urine Bacteria (Auto) Negative (Negative) 10/26/20 22:45 COVID-19 Eval Order Covid19 at [facility] 10/26/20 18:26 SARS-CoV-2 (PCR) NEGATIVE (Negative) 10/26/20 18:26 Impressions Abdomen/Pelvis CT 10/26/20 18:11 CT angio chest PE protocol, CT abd pelvis IV con only HISTORY: 75 years-old Male with PE. Acute chest and abdominal pain with weight loss TECHNIQUE: Multiple CTA images of the chest were obtained after the intravenous administration of 119 ml Optiray. Coronal and sagittal MIPS were obtained from the axial data set and were submitted for review. All measurements were obtained according to NASCET criteria. CT abdomen pelvis with IV contrast only was also obtained. A dose lowering technique was utilized adhering to the principles of ALARA. COMPARISON: CT abdomen and pelvis 04/08/2006. FINDINGS: CTA: Mild cardiomegaly. Pericardial effusion measures up to 9 mm anteriorly. Moderate coronary artery calcifications. Fusiform dilation of the ascending thoracic aorta, 4.7 x 4.7 cm. Extensive associated thoracic atherosclerosis. The descending thoracic aorta measures up to 3.5 cm at the level of the diaphragmatic hiatus. No dissection. Patency of the imaged great vessels. Unremarkable pulmonary artery. No pulmonary emboli identified. CT CHEST: Unremarkable thyroid. Bulky pathologic mediastinal and hilar adenopathy include subcarinal adenopathy measuring up to 6.9 x 3.5 cm. Pathologic periesophageal retrocrural lymph nodes are also present. There is circumferential masslike thickening involving the distal esophagus with paraesophageal inflammation. Emphysema with bulla of the left upper lobe and lingula. Bronchial wall thickening suggestive of bronchitis. No pneumothorax, pleural effusion or overt pulmonary edema. Mild linear scarring/atelectasis of the lung bases. There are 4 solid nodules of the left lower lobe which measure up to 4 mm (please see bookmarks). There are a few nodules of the right lower lobe measuring up to 6 mm on image 171. There are a few solid nodules of the right middle lobe measuring up to 4 mm. Central airways are patent. Unremarkable soft tissues. Degenerative changes of the spine and shoulders. Mild wedging involving a few lower thoracic vertebral segments is likely chronic. CT ABDOMEN/PELVIS: No pneumatosis or pneumoperitoneum. The spleen measures within the upper limits of normal in size and has increased in size from comparison measuring up to 12.6 cm on today's study. There are a few scattered ill-defined slightly hypodense lesions of the spleen, the largest which measures up to 1.2 cm which appears new from comparison. Unremarkable pancreas. Nodular thickening of the left greater than right adrenal gland has progressed from comparison. Unremarkable gallbladder. Hepatic steatosis. There are a few scattered hepatic cysts redemonstrated measuring up to 9 mm within the left hepatic lobe. Patency of the hepatic and portal veins. Numerous bilateral renal cysts with scattered subcentimeter hypodensities, several of which are too small to characterize. There is a 10 mm hyperdense lesion of the inferior pole left kidney with two intermediate density 9 mm lesions of the right kidney also noted. There is increased attenuation with distention of the superior pole and interpolar aspect of the right kidney. Mild urinary bladder wall thickening with partial distention. Prostamegaly. 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 Pathologic bulky retroperitoneal adenopathy with pathologic gastrohepatic and periportal lymph nodes also present. Subcarinal lymph nodes are centrally necrotic, notably a 3.5 x 2.8 cm intraperitoneal lymph node on image 149. No bowel obstruction. Mild fecal retention. Ventral abdominal wall hernia with diastases of 8.1 cm contains mesenteric fat and nonobstructed large and small bowel. Scattered small bowel air-fluid levels. Small left greater than right fat and bowel-containing inguinal hernias. The appendix is not diagnostically visualized. No acute fracture. Degenerative changes of the spine, pelvis and hips. IMPRESSION: 1. No pulmonary emboli. 2. Bulky pathologic adenopathy of the chest, abdomen and pelvis as above notably involves the mediastinum, lisette and retroperitoneum. Differential considerations include metastatic disease versus lymphoma. Oncologic follow-up is needed 3. Masslike thickening of the distal esophagus requires further evaluation with endoscopy. 4. The spleen measures within the upper limits of normal in size and demonstrates a few scattered ill-defined hypodensities which appear new from 2007. Follow-up recommended to exclude metastasis. 5. Large hyperattenuating filling defect measuring over 3 cm involving the superior pole and interpolar aspect of the right kidney is suspicious for neoplasm. Hemorrhage/debris considered less likely. 6. Bowel containing ventral abdominal wall and inguinal hernias. No bowel obstruction. 7. Scattered bilateral solid pulmonary nodules measure up to 6 mm. Follow-up is needed. 8. Small to moderate pericardial effusion. 9. Bilateral renal cysts with a few subcentimeter intermediate hyperattenuating lesions as above suggestive of hyperdense cysts versus solid lesions. Findings could be correlated with ultrasound. 10. Additionally findings as above. ACT 112: Negative or not required by law. The above report was generated using voice recognition software. It may contain grammatical, syntax or spelling errors. Electronically signed by: Silverio Kc M.D. 10/26/2020 8:27 PM Chest CTA 10/26/20 18:11 CT angio chest PE protocol, CT abd pelvis IV con only HISTORY: 75 years-old Male with PE. Acute chest and abdominal pain with weight loss TECHNIQUE: Multiple CTA images of the chest were obtained after the intravenous administration of 119 ml Optiray. Coronal and sagittal MIPS were obtained from the axial data set and were submitted for review. All measurements were obtained according to NASCET criteria. CT abdomen pelvis with IV contrast only was also obtained. A dose lowering technique was utilized adhering to the principles of ALARA. COMPARISON: CT abdomen and pelvis 04/08/2006. FINDINGS: CTA: Mild cardiomegaly. Pericardial effusion measures up to 9 mm anteriorly. Moderate coronary artery calcifications. Fusiform dilation of the ascending thoracic aorta, 4.7 x 4.7 cm. Extensive associated thoracic atherosclerosis. The descending thoracic aorta measures up to 3.5 cm at the level of the diaphragmatic hiatus. No dissection. Patency of the imaged great vessels. Unrem arkable pulmonary artery. No pulmonary emboli identified. CT CHEST: Unremarkable thyroid. Bulky pathologic mediastinal and hilar adenopathy include subcarinal adenopathy measuring up to 6.9 x 3.5 cm. Pathologic periesophageal retrocrural lymph nodes are also present. There is circumferential masslike thickening involving the distal esophagus with paraesophageal inflammation. Emphysema with bulla of the left upper lobe and lingula. Bronchial wall thickening suggestive of bronchitis. No pneumothorax, pleural effusion or overt pulmonary edema. Mild linear scarring/atelectasis of the lung bases. There are 4 solid nodules of the left lower lobe which measure up to 4 mm (please see bookmarks). There are a few nodules of the right lower lobe measuring up to 6 mm on image 171. There are a few solid nodules of the right middle lobe measuring up to 4 mm. Central airways are patent. Unremarkable soft tissues. Degenerative changes of the spine and shoulders. Mild wedging involving a few lower thoracic vertebral segments is likely chronic. CT ABDOMEN/PELVIS: No pneumatosis or pneumoperitoneum. The spleen measures within the upper limits of normal in size and has increased in size from comparison measuring up to 12.6 cm on today's study. There are a few scattered ill-defined slightly hypodense lesions of the spleen, the largest which measures up to 1.2 cm which appears new from comparison. Unremarkable pancreas. Nodular thickening of the left greater than right adrenal gland has progressed from comparison. Unremarkable gallbladder. Hepatic steatosis. There are a few scattered hepatic cysts redemonstrated measuring up to 9 mm within the left hepatic lobe. Patency of the hepatic and portal veins. Numerous bilateral renal cysts with scattered subcentimeter hypodensities, s everal of which are too small to characterize. There is a 10 mm hyperdense lesion of the inferior pole left kidney with two intermediate density 9 mm lesions of the right kidney also noted. There is increased attenuation with distention of the superior pole and interpolar aspect of the right kidney. Mild urinary bladder wall thickening with partial distention. Prostamegaly. 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 Pathologic bulky retroperitoneal adenopathy with pathologic gastrohepatic and periportal lymph nodes also present. Subcarinal lymph nodes are centrally necrotic, notably a 3.5 x 2.8 cm intraperitoneal lymph node on image 149. No bowel obstruction. Mild fecal retention. Ventral abdominal wall hernia with diastases of 8.1 cm contains mesenteric fat and nonobstructed large and small bowel. Scattered small bowel air-fluid levels. Small left greater than right fat and bowel-containing inguinal hernias. The appendix is not diagnostically visualized. No acute fracture. Degenerative changes of the spine, pelvis and hips. IMPRESSION: 1. No pulmonary emboli. 2. Bulky pathologic adenopathy of the chest, abdomen and pelvis as above notably involves the mediastinum, lisette and retroperitoneum. Differential considerations include metastatic disease versus lymphoma. Oncologic follow-up is needed 3. Masslike thickening of the distal esophagus requires further evaluation with endoscopy. 4. The spleen measures within the upper limits of normal in size and demonstrates a few scattered ill-defined hypodensities which appear new from 2007. Follow-up recommended to exclude metastasis. 5. Large hyperattenuating filling defect measuring over 3 cm involving the superior pole and interpolar aspect of the right kidney is suspicious for neoplasm. Hemorrhage/debris considered less likely. 6. Bowel containing ventral abdominal wall and inguinal hernias. No bowel obstruction. 7. Scattered bilateral solid pulmonary nodules measure up to 6 mm. Follow-up is needed. 8. Small to moderate pericardial effusion. 9. Bilateral renal cysts with a few subcentimeter intermediate hyperattenuating lesions as above suggestive of hyperdense cysts versus solid lesions. Findings could be correlated with ultrasound. 10. Additionally findings as above. ACT 112: Negative or not required by law. The above report was generated using voice recognition software. It may contain grammatical, syntax or spelling errors. Electronically signed by: Silverio Kc M.D. 10/26/2020 8:[address] 10/26/20 18:11 CT head/brain wo con CLINICAL HISTORY: 75 years-old Male with amaurosis fugax. Acute intermittent loss of vision within the right eye TECHNIQUE: Multiple axial CT images of the head were obtained without contrast. A dose lowering technique was utilized adhering to the principles of ALARA. COMPARISON: None. FINDINGS: No acute intracranial hemorrhage, midline shift, intracranial mass, hydrocephalus, territorial ischemia or abnormal extra-axial collection. Age- related involutional changes. Mild white matter hypodensities suggestive of chronic microvascular ischemic disease. Cerebral vascular calcifications. The calvarium is intact. Trace mastoid effusions. Mild mucosal thickening of the ethmoid sinuses. Partially imaged left maxillary periapical cyst. Unremarkable soft tissues and orbits. IMPRESSION: No acute intracranial abnormality. ACT 112: Negative or not required by law. The above report was generated using voice recognition software. It may contain grammatical, syntax or spelling errors. Electronically signed by: Silverio Kc M.D. 10/26/2020 7:50 PM Head CTA 10/26/20 18:11 CT angio neck with con, CT angio head w con CLINICAL HISTORY: 75 years-old Male with amaurosis fugax. Acute loss of vision within the right thigh COMPARISON STUDY: Head CT and CTA chest of same day TECHNIQUE: Following the IV administration of 119 mL of Optiray, CT angiogram of the head and neck was performed from the aortic arch to the skull apex. Images are reviewed in the axial, sagittal, and coronal planes. 3-D MIPS images are created and assessed. IV contrast was administered without complication. All measurements were calculated based on NASCET criteria. A dose lowering technique was utilized adhering to the principles of ALARA. CT DOSE: 3226.25 mGy.cm FINDINGS: Bulky pathologic mediastinal, and bilateral supraclavicular adenopathy. Emphysema. No pneumothorax. Degenerative changes of the spine. Trace mastoid effusions. No suspicious bone lesions. Atherosclerosis of the aorta. Patency of the innominate and imaged subclavian arteries. Mild to moderate atherosclerosis of the common carotid arteries. Severe atherosclerosis of the right carotid bulb and proximal right ICA results in approximately 50% luminal narrowing. Moderate to extensive atherosclerosis of the left carotid bulb and proximal left ICA results in less than 50% stenosis. Tortuosity of the distal cervical segments. Atherosclerosis of the cavernous and supraclinoid segments without significant stenosis. Areas of mild luminal narrowing involving the right MCA. The middle and anterior cerebral arteries are otherwise patent and unremarkable. Dominant right vertebral artery. The vertebral arteries are patent and otherwise within normal limits. The basilar and posterior cerebral arteries. Cerebral venous sinuses are patent. No abnormal intracranial enhancement. IMPRESSION: 1. Severe atherosclerotic plaque of the right carotid bulb and proximal right ICA results in 50% stenosis. 2. Moderate to extensive atherosclerosis of the left carotid bulb and proximal left ICA results in less than 50% stenosis. 3. Otherwise unremarkable CTA of the head and neck. 4. Bulky pathologic mediastinal and supraclavicular adenopathy suspicious for l ymphoma. ACT 112: Negative or not required by law. The above report was generated using voice recognition software. It may contain grammatical, syntax or spelling errors. Electronically signed by: Silverio Kc M.D. 10/26/2020 8:35 PM Neck CTA 10/26/20 18:11 CT angio neck with con, CT angio head w con CLINICAL HISTORY: 75 years-old Male with amaurosis fugax. Acute loss of vision within the right thigh COMPARISON STUDY: Head CT and CTA chest of same day TECHNIQUE: Following the IV administration of 119 mL of Optiray, CT angiogram of the head and neck was performed from the aortic arch to the skull apex. Images are reviewed in the axial, sagittal, and coronal planes. 3-D MIPS images are created and assessed. IV contrast was administered without complication. All measurements were calculated based on NASCET criteria. A dose lowering technique was utilized adhering to the principles of ALARA. CT DOSE: 3226.25 mGy.cm FINDINGS: Bulky pathologic mediastinal, and bilateral supraclavicular adenopathy. Emphysema. No pneumothorax. Degenerative changes of the spine. Trace mastoid effusions. No suspicious bone lesions. Atherosclerosis of the aorta. Patency of the innominate and imaged subclavian arteries. Mild to moderate atherosclerosis of the common carotid arteries. Severe atherosclerosis of the right carotid bulb and proximal right ICA results in approximately 50% luminal narrowing. Moderate to extensive atherosclerosis of the left carotid bulb and proximal left ICA results in less than 50% stenosis. Tortuosity of the distal cervical segments. Atherosclerosis of the cavernous and supraclinoid segments without significant stenosis. Areas of mild luminal narrowing involving the right MCA. The middle and anterior cerebral arteries are otherwise patent and unremarkable. Dominant right vertebral artery. The vertebral arteries are patent and otherwise within normal limits. The basilar and posterior cerebral arteries. Cerebral venous sinuses are patent. No abnormal intracranial enhancement. IMPRESSION: 1. Severe atherosclerotic plaque of the right carotid bulb and proximal right ICA results in 50% stenosis. 2. Moderate to extensive atherosclerosis of the left carotid bulb and proximal left ICA results in less than 50% stenosis. 3. Otherwise unremarkable CTA of the head and neck. 4. Bulky pathologic mediastinal and supraclavicular adenopathy suspicious for lymphoma. ACT 112: Negative or not required by law. The above report was generated using voice recognition software. It may contain grammatical, syntax or spelling errors. Electronically signed by: Silverio Kc M.D. 10/26/2020 8:35 PM ECG Additional Comments: EKG with SR at 91, normal axis, JV=822, QRS=80, NTz=181, no acute ischemic changes Code Status & VTE Plan VTE Prophylaxis Plan VTE Prophylaxis will be ordered: Yes PG Care Time/CCT Total # of Minutes Spent Total Time Spent with Patient: Total time spent is greater than 50% in coordination of care (as documented) at patient's floor/unit and/or counseling patient: Coding Level of Care Code INT OBSERVATION CARE 70M LVL 3 Diagnoses Hypertension I10 Esophageal thickening K22.8 Lymphadenopathy R59.1 Visual disturbance H53.9
[2020-10-26 23:01] LABS: Appearance Urine Cloudy (Clear); Bacteria Urine Automated Negative (Negative); Bilirubin Urine Negative (Negative); Blood Urine 3+ (Negative); Color Urine Yellow; Glucose Urine UA Negative (Negative); Ketones Urine Negative (Negative); Leukocyte Esterase Urine Negative (Negative); Nitrite Urine Negative (Negative); Protein Urine Trace (Negative); RBC Urine Automated >30 /hpf (0-4); Specific Gravity Urine > 1.045 (1.000-1.030); Urobilinogen Urine Negative (Negative)
[2020-10-27] MEDS ORDERED: ONDANSETRON INJ 2 MG/ML 2 ML VIAL IV PRN (01:54)
[2020-10-27] MEDS ORDERED: ACETAMINOPHEN 325 MG TAB PO PRN (01:54)
[2020-10-27 06:12] LABS: Basophils # (auto) 0.04 K/uL (0-0.2); Basophils % (auto) 0.5 %; Eosinophils # (auto) 0.11 K/uL (0-0.5); Eosinophils % (auto) 1.5 %; Hematocrit (blood only) 36.3 % (42-52); Hemoglobin 12.7 g/dL (14.0-18.0); Immature Granulocytes # (auto) 0.02 K/uL (0.00-0.02); Immature Granulocytes % (auto) 0.3 %; Lymphocytes # (auto) 1.23 K/uL (1.2-3.4); Lymphocytes % (auto) 16.8 %; Mean Corpuscular Hemoglobin 30.4 pg (25-34); Mean Corpuscular Volume 86.8 fL (80-100); Mean Platelet Volume 9.3 fL (7.4-10.4); Monocytes # (auto) 0.63 K/uL (0.11-0.59); Monocytes % (auto) 8.6 %; Neutrophils # (auto) 5.29 K/uL (1.4-6.5); Neutrophils % (auto) 72.3 %; Platelet Count 300 K/uL (130-400); RDW Coefficient of Variation 14.3 % (11.5-14.5); RDW Standard Deviation 45.1 fL (36.4-46.3); Red Blood Count 4.18 M/uL (4.7-6.1); White Blood Count 7.32 K/uL (4.8-10.8)
[2020-10-27 06:38] LABS: BUN Creatinine Ratio 20.4 (10-20); Calcium 8.8 mg/dl (8.5-10.1); Creatinine Clr Calc Pharmacy 104.8 ml/min; Est GFR (African American) 102.5 ml/min; Est GFR (Non-African American) 88.5 ml/min; Potassium 3.3 mmol/L (3.5-5.1)
[2020-10-27 07:15] LABS: Estimated Average Glucose 117 mg/dl; Hemoglobin A1C 5.7 % (4.5-5.6)
--- NOTE | 2020-10-27 08:29 | Hospitalist Progress Note ---
Date of Service October 27, 2020 Assessment & Plan (1) Visual disturbance: Plan: 75yo male with second episode of monocular visual disturbance. Patient describes "a filter" over his right eye as well as darkened vision with streaking. He has an moderately elevated ESR as well of 43. No additional evidence for GCA. Patient found with severe atherosclerotic plaque of the right carotid bulb and proximal right ICA with 50% stenosis. Ddx to include carotid disease, cardioembolic phenomenon. ?GCA given elevation of ESR - with findings of diffuse bulky LAD this may be co-occurring with lymphoma - may be seen in [facility]? -2D echo performed --> mild effusion otherwise unremarkable -[facility] -Will hold on ASA for now as patient may require excisional biopsy in the near future. -Will hold off on Steroids since biopsy soon. Could alter results. 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 May be able to be done outpatient. -Vascular surgery consulted for carotid stenosis which may be causing his recurring visual deficits. -Following stroke r/o and vascular consult, we may be able to discharge patient. (2) Hypertension: Plan: Blood pressure well controlled at present. He is currently taking Lisinopril an d Metoprolol, uncertain of doses. -Hold for now, request records -Continue to monitor blood pressure Plan: Ppx - SCDs Code - Full Dispo - possible discharge tomorrow Admission and Anticipated Discharge Date Admission Date: October 26, 2020 Supervising Physician Co-Signing Physician Notes Attending attestation Pt seen and examined in concert with Dr. Silver. In agreement with the documented findings as noted in the resident documentation with any exceptions or additions as noted here. Resting in bed with visual symptoms essentially resolved. Patient reports chron ic insomnia with nighttime awakenings as a result of PTSD following service for which he does not take anything for sleep though has occasionally taken 'sleeping pills' in the past. He requests something to help him sleep this evening. On Exmaination, S1/S2 nl RRR no MCG. CTAB. Abd mild distention, nontender. BS+ve Visual disturbance - concern for TIA - US shows >50% plaque of right carotid bulb. Echo with isolated anterior effusion without tamponade. Vascular re: ?intervention with institution of APT and statin therapy in AM. New lesion suspicious for neoplasia - GI and surg consultation - awaiting path from EGD and Friday vs. outpatient for LN bx. Oncology consultation. Discuss course re: continued stay vs. outpt, latter preferred. Prediabetes - A1c 5.7% - surveillance and counseling HTN - currently off home medications with stable BP. Will monitor. Else see resident documentation as noted. Subjective Patient seen after his EGD. He is doing well with no acute complaints other than having a history of insomnia/PTSD from being in the . He would like something to help him sleep at night. Review of Systems Review of Systems: All systems reviewed & are unremarkable except as noted in HPI & below Physical Exam Physical Exam: HEENT: PERRL, EOMI, anicteric sclera, conjunctiva without injection, external ear normal to inspection and nontender, nares patent, moist mucus membranes, dentition intact, no oropharyngeal lesions, neck supple, trachea midline, +LAD - firm palpable node right neck, mobile, nontender, no thyromegaly, no JVD Constitutional: WD/WN, vitals as above Neck: normal visual inspection and + thick neck Respiratory: normal respiratory effort, lungs clear to auscultation normal respiratory effort Auscultation: lungs clear to auscultation bilaterally Cardiovascular: RRR, no murmur, no edema Rate/Rhythm: regular rate and regular rhythm Gastrointestinal (Abdomen): normal bowel sounds, soft, nontender, no hepat osplenomegaly Musculoskeletal: Head/Neck/Chest: normocephalic Psychiatric: Orientation: alert and oriented x 3 Lymphatic: + cervical lymphadenopathy Results & Data Results & Data ([facility]) Vital Signs (Past 12 Hours) Vital Signs Temp Pulse Pulse Pulse Resp BP BP 10/27/20 07:00 36.4 C L 97 H 18 124/80 10/27/20 02:13 78 10/27/20 02:00 36.7 C 79 16 129/77 10/27/20 01:18 94 H 24 10/27/20 00:00 92 H 22 131/86 10/26/20 22:46 136/95 10/26/20 22:17 82 24 174/100 H Pulse Ox 10/27/20 07:00 95 10/27/20 02:13 10/27/20 02:00 96 10/27/20 01:18 96 10/27/20 00:00 94 10/26/20 22:46 10/26/20 22:17 96 Diagnostic Findings Laboratory Results WBC 7.32 K/uL (4.8-10.8) 10/27/20 05:25 RBC 4.18 M/uL (4.7-6.1) L 10/27/20 05:25 Hgb 12.7 g/dL (14.0-18.0) L 10/27/20 05:25 Hct 36.3 % (42-52) L 10/27/20 05:25 MCV 86.8 fL (80-100) 10/27/20 05:25 MCH 30.4 pg (25-34) 10/27/20 05:25 MCHC 35.0 g/dL (32-36) 10/27/20 05:25 RDW Std Deviation 45.1 fL (36.4-46.3) 10/27/20 05:25 RDW Coeff of Francois 14.3 % (11.5-14.5) 10/27/20 05:25 Plt Count 300 K/uL (130-400) 10/27/20 05:25 MPV 9.3 fL (7.4-10.4) 10/27/20 05:25 Immature Gran % (Auto) 0.3 % 10/27/20 05:25 Neut % (Auto) 72.3 % 10/27/20 05:25 Lymph % (Auto) 16.8 % 10/27/20 05:25 Bleckley % (Auto) 8.6 % 10/27/20 05:25 Eos % (Auto) 1.5 % 10/27/20 05:25 Baso % (Auto) 0.5 % 10/27/20 05:25 Neut # (Auto) 5.29 K/uL (1.4-6.5) 10/27/20 05:25 Lymph # (Auto) 1.23 K/uL (1.2-3.4) 10/27/20 05:25 Bleckley # (Auto) 0.63 K/uL (0.11-0.59) H 10/27/20 05:25 Eos # (Auto) 0.11 K/uL (0-0.5) 10/27/20 05:25 Baso # (Auto) 0.04 K/uL (0-0.2) 10/27/20 05:25 Immature Gran # (Auto) 0.02 K/uL (0.00-0.02) 10/27/20 05:25 ESR 43 mm/hr (0-20) H 10/26/20 18:30 Sodium 134 mmol/L (136-145) L 10/27/20 05:25 Potassium 3.3 mmol/L (3.5-5.1) L 10/27/20 05:25 Chloride 101 mmol/L (98-107) 10/27/20 05:25 Carbon Dioxide 26 mmol/L (21-32) 10/27/20 05:25 Anion Gap 7.0 (3-11) 10/27/20 05:25 BUN 16 mg/dl (7-18) 10/27/20 05:25 Creatinine 0.79 mg/dl (0.6-1.4) 10/27/20 05:25 Est Cr Clr Drug Dosing 104.8 ml/min 10/27/20 05:25 Est GFR ( Amer) 102.5 ml/min 10/27/20 05:25 Est GFR (Non-Af Amer) 88.5 ml/min 10/27/20 05:25 BUN/Creatinine Ratio 20.4 (10-20) H 10/27/20 05:25 Glucose 97 mg/dl (70-99) 10/27/20 05:25 Estimat Average Glucose 117 mg/dl 10/27/20 05:25 Hemoglobin A1c 5.7 % (4.5-5.6) H 10/27/20 05:25 Calcium 8.8 mg/dl (8.5-10.1) 10/27/20 05:25 Phosphorus 3.6 mg/dl (2.5-4.9) 10/26/20 18:30 Magnesium 2.1 mg/dl (1.8-2.4) 10/26/20 18:30 Total Bilirubin 0.6 mg/dl (0.2-1) 10/26/20 18:30 Direct Bilirubin 0.2 mg/dl (0-0.2) 10/26/20 18:30 AST 51 U/L (15-37) H 10/26/20 18:30 ALT 32 U/L (12-78) 10/26/20 18:30 Alkaline Phosphatase 96 U/L (45-117) 10/26/20 18:30 Lactate Dehydrogenase 513 U/L (87-241) H 10/27/20 05:25 Troponin I < 0.015 ng/ml (0-0.045) 10/26/20 18:30 C-Reactive Protein 1.83 mg/dl (0-0.29) H 10/26/20 18:30 NT-Pro-B Natriuret Pep 363 pg/ml (0-900) 10/26/20 18:30 Total Protein 8.2 gm/dl (6.4-8.2) 10/26/20 18: Albumin 3.2 gm/dl (3.4-5.0) L 10/26/20 18:30 Globulin 5.0 gm/dl (2.5-4.0) H 10/26/20 18:30 Albumin/Globulin Ratio 0.6 (0.9-2) L 10/26/20 18:30 Triglycerides 118 mg/dl (0-150) 10/27/20 05:25 Cholesterol 182 mg/dl (0-200) 10/27/20 05:25 LDL Cholesterol, Calc 131 mg/dl 10/27/20 05:25 VLDL Cholesterol, Calc 24 mg/dl 10/27/20 05:25 HDL Cholesterol 27 mg/dl 10/27/20 05:25 Cholesterol/HDL Ratio 7 10/27/20 05:25 TSH 4.260 uIu/ml (0.300-4.500) 10/26/20 18:30 Urine Color Yellow 10/26/20 22:45 Urine Appearance Cloudy (Clear) A 10/26/20 22:45 Urine pH 6.0 (4.5-7.5) 10/26/20 22:45 Ur Specific [place] > 1.045 (1.000-1.030) H 10/26/20 22:45 Urine Protein Trace (Negative) H 10/26/20 22:45 Urine Glucose (UA) Negative (Negative) 10/26/20 22:45 Urine Ketones Negative (Negative) 10/26/20 22:45 Urine Blood 3+ (Negative) H 10/26/20 22:45 Urine Nitrite Negative (Negative) 10/26/20 22:45 Urine Bilirubin Negative (Negative) 10/26/20 22:45 Urine Urobilinogen Negative (Negative) 10/26/20 22:45 Ur Leukocyte Esterase Negative (Negative) 10/26/20 22:45 Urine WBC (Auto) 5-10 /hpf (0-5) H 10/26/20 22:45 Urine RBC (Auto) >30 /hpf (0-4) H 10/26/20 22:45 U Hyaline Cast (Auto) 5-10 /lpf (0-5) H 10/26/20 22:45 U Epithel Cells (Auto) 10-20 /lpf (0-5) H 10/26/20 22:45 Urine Bacteria (Auto) Negative (Negative) 10/26/20 22:45 COVID-19 Eval Order Covid19 at [facility] 10/26/20 18:26 SARS-CoV-2 (PCR) NEGATIVE (Negative) 10/26/20 18:26 Impressions Abdomen/Pelvis CT 10/26/20 18:11 CT angio chest PE protocol, CT abd pelvis IV con only HISTORY: 75 years-old Male with PE. Acute chest and abdominal pain with weight loss TECHNIQUE: Multiple CTA images of the chest were obtained after the intravenous administration of 119 ml Optiray. Coronal and sagittal MIPS were obtained from the axial data set and were submitted for review. All measurements were obtaine d according to NASCET criteria. CT abdomen pelvis with IV contrast only was also obtained. A dose lowering technique was utilized adhering to the principles of ALARA. COMPARISON: CT abdomen and pelvis 04/08/2006. FINDINGS: CTA: Mild cardiomegaly. Pericardial effusion measures up to 9 mm anteriorly. Moderate coronary artery calcifications. Fusiform dilation of the ascending thoracic aorta, 4.7 x 4.7 cm. Extensive associated thoracic atherosclerosis. The descending thoracic aorta measures up to 3.5 cm at the level of the diaphragmatic hiatus. No dissection. Patency of the imaged great vessels. Unremarkable pulmonary artery. No pulmonary emboli identified. CT CHEST: Unremarkable thyroid. Bulky pathologic mediastinal and hilar adenopathy include subcarinal adenopathy measuring up to 6.9 x 3.5 cm. Pathologic periesophageal retrocrural lymph nodes are also present. There is circumferential masslike thickening involving the distal esophagus with paraesophageal inflammation. Emphysema with bulla of the left upper lobe and lingula. Bronchial wall thickening suggestive of bronchitis. No pneumothorax, pleural effusion or overt pulmonary edema. Mild linear scarring/atelectasis of the lung bases. There are 4 solid nodules of the left lower lobe which measure up to 4 mm (please see bookmarks). There are a few nodules of the right lower lobe measuring up to 6 mm on image 171. There are a few solid nodules of the right middle lobe measuring up to 4 mm. Central airways are patent. Unremarkable soft tissues. Degenerative changes of the spine and shoulders. Mild wedging involving a few lower thoracic vertebral segments is likely chronic. CT ABDOMEN/PELVIS: No pneumatosis or pneumoperitoneum. The spleen measures within the upper limits of normal in size and has increased in size from comparison measuring up to 12.6 cm on today's study. There are a few scattered ill-defined slightly hypodense lesions of the spleen, the largest which measures up to 1.2 cm which appears new from comparison. Unremarkable pancreas. Nodular thickening of the left greater than right adrenal gland has progressed from comparison. Unremarkable gallbladder. Hepatic steatosis. There are a few scattered hepatic cysts redemonstrated measuring up to 9 mm within the left hepatic lobe. Patency of the hepatic and portal veins. Numerous bilateral renal cysts with scattered subcentimeter hypodensities, several of which are too small to characterize. There is a 10 mm hyperdense lesion of the inferior pole left kidney with two intermediate density 9 mm lesions of the right kidney also noted. There is increased attenuation with distention of the superior pole and interpolar aspect of the right kidney. Mild urinary bladder wall thickening with partial distention. Prostamegaly. 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 Pathologic bulky retroperitoneal adenopathy with pathologic gastrohepatic and periportal lymph nodes also present. Subcarinal lymph nodes are centrally necrotic, notably a 3.5 x 2.8 cm intraperitoneal lymph node on image 149. No bowel obstruction. Mild fecal retention. Ventral abdominal wall hernia with diastases of 8.1 cm contains mesenteric fat and nonobstructed large and small bowel. Scattered small bowel air-fluid levels. Small left greater than right fat and bowel-containing inguinal hernias. The appendix is not diagnostically visualized. No acute fracture. Degenerative changes of the spine, pelvis and hips. IMPRESSION: 1. No pulmonary emboli. 2. Bulky pathologic adenopathy of the chest, abdomen and pelvis as above notably involves the mediastinum, lisette and retroperitoneum. Differential considerations include metastatic disease versus lymphoma. Oncologic follow-up is needed 3. Masslike thickening of the distal esophagus requires further evaluation with endoscopy. 4. The spleen measures within the upper limits of normal in size and demonstrates a few scattered ill-defined hypodensities which appear new from 2007. Follow-up recommended to exclude metastasis. 5. Large hyperattenuating filling defect measuring over 3 cm involving the superior pole and interpolar aspect of the right kidney is suspicious for neoplasm. Hemorrhage/debris considered less likely. 6. Bowel containing ventral abdominal wall and inguinal hernias. No bowel obstruction. 7. Scattered bilateral solid pulmonary nodules measure up to 6 mm. Follow-up is needed. 8. Small to moderate pericardial effusion. 9. Bilateral renal cysts with a few subcentimeter intermediate hyperattenuating lesions as above suggestive of hyperdense cysts versus solid lesions. Findings could be correlated with ultrasound. 10. Additionally findings as above. ACT 112: Negative or not required by law. The above report was generated using voice recognition software. It may contain grammatical, syntax or spelling errors. Electronically signed by: Silverio Kc M.D. 10/26/2020 8:27 PM Chest CTA 10/26/20 18:11 CT angio chest PE protocol, CT abd pelvis IV con only HISTORY: 75 years-old Male with PE. Acute chest and abdominal pain with weight loss TECHNIQUE: Multiple CTA images of the chest were obtained after the intravenous administration of 119 ml Optiray. Coronal and sagittal MIPS were obtained from the axial data set and were submitted for review. All measurements were obtained according to NASCET criteria. CT abdomen pelvis with IV contrast only was also obtained. A dose lowering technique was utilized adhering to the principles of ALARA. COMPARISON: CT abdomen and pelvis 04/08/2006. FINDINGS: CTA: Mild cardiomegaly. Pericardial effusion measures up to 9 mm anteriorly. Moderate coronary artery calcifications. Fusiform dilation of the ascending thoracic aorta, 4.7 x 4.7 cm. Extensive associated thoracic atherosclerosis. The descending thoracic aorta measures up to 3.5 cm at the level of the diaphragmatic hiatus. No dissection. Patency of the imaged great vessels. Unremarkable pulmonary artery. No pulmonary emboli identified. CT CHEST: Unremarkable thyroid. Bulky pathologic mediastinal and hilar adenopathy include subcarinal adenopathy measuring up to 6.9 x 3.5 cm. Pathologic periesophageal retrocrural lymph nodes are also present. There is circumferential masslike thickening involving the distal esophagus with paraesophageal inflammation. Emphysema with bulla of the left upper lobe and lingula. Bronchial wall thickening suggestive of bronchitis. No pneumothorax, pleural effusion or overt pulmonary edema. Mild linear scarring/atelectasis of the lung bases. There are 4 solid nodules of the left lower lobe which measure up to 4 mm (please see bruno okmarks). There are a few nodules of the right lower lobe measuring up to 6 mm on image 171. There are a few solid nodules of the right middle lobe measuring up to 4 mm. Central airways are patent. Unremarkable soft tissues. Degenerative changes of the spine and shoulders. Mild wedging involving a few lower thoracic vertebral segments is likely chronic. CT ABDOMEN/PELVIS: No pneumatosis or pneumoperitoneum. The spleen measures within the upper limits of normal in size and has increased in size from comparison measuring up to 12.6 cm on today's study. There are a few scattered ill-defined slightly hypodense lesions of the spleen, the largest which measures up to 1.2 cm which appears new from comparison. Unremarkable pancreas. Nodular thickening of the left greater than right adrenal gland has progressed from comparison. Unremarkable gallbladder. Hepatic steatosis. There are a few scattered hepatic cysts redemonstrated measuring up to 9 mm within the left hepatic lobe. Patency of the hepatic and portal veins. Numerous bilateral renal cysts with scattered subcentimeter hypodensities, several of which are too small to characterize. There is a 10 mm hyperdense lesion of the inferior pole left kidney with two intermediate density 9 mm lesions of the right kidney also noted. There is increased attenuation with distention of the superior pole and interpolar aspect of the right kidney. Mild urinary bladder wall thickening with partial distention. Prostamegaly. 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 Pathologic bulky retroperitoneal adenopathy with pathologic gastrohepatic and periportal lymph nodes also present. Subcarinal lymph nodes are centrally ne crotic, notably a 3.5 x 2.8 cm intraperitoneal lymph node on image 149. No bowel obstruction. Mild fecal retention. Ventral abdominal wall hernia with diastases of 8.1 cm contains mesenteric fat and nonobstructed large and small bowel. Scattered small bowel air-fluid levels. Small left greater than right fat and bowel-containing inguinal hernias. The appendix is not diagnostically visualized. No acute fracture. Degenerative changes of the spine, pelvis and hips. IMPRESSION: 1. No pulmonary emboli. 2. Bulky pathologic adenopathy of the chest, abdomen and pelvis as above notably involves the mediastinum, lisette and retroperitoneum. Differential considerations include metastatic disease versus lymphoma. Oncologic follow-up is needed 3. Masslike thickening of the distal esophagus requires further evaluation with endoscopy. 4. The spleen measures within the upper limits of normal in size and demonstrates a few scattered ill-defined hypodensities which appear new from 2007. Follow-up recommended to exclude metastasis. 5. Large hyperattenuating filling defect measuring over 3 cm involving the superior pole and interpolar aspect of the right kidney is suspicious for neoplasm. Hemorrhage/debris considered less likely. 6. Bowel containing ventral abdominal wall and inguinal hernias. No bowel obstruction. 7. Scattered bilateral solid pulmonary nodules measure up to 6 mm. Follow-up is needed. 8. Small to moderate pericardial effusion. 9. Bilateral renal cysts with a few subcentimeter intermediate hyperattenuating lesions as above suggestive of hyperdense cysts versus solid lesions. Findings could be correlated with ultrasound. 10. Additionally findings as above. ACT 112: Negative or not required by law. The above report was generated using voice recognition software. It may contain grammatical, syntax or spelling errors. Electronically signed by: Silverio Kc M.D. 10/26/2020 8:[address] 10/26/20 18:11 CT head/brain wo con CLINICAL HISTORY: 75 years-old Male with amaurosis fugax. Acute intermittent loss of vision within the right eye TECHNIQUE: Multiple axial CT images of the head were obtained without contrast. A dose lowering technique was utilized adhering to the principles of ALARA. COMPARISON: None. FINDINGS: No acute intracranial hemorrhage, midline shift, intracranial mass, h ydrocephalus, territorial ischemia or abnormal extra-axial collection. Age- related involutional changes. Mild white matter hypodensities suggestive of chronic microvascular ischemic disease. Cerebral vascular calcifications. The calvarium is intact. Trace mastoid effusions. Mild mucosal thickening of the ethmoid sinuses. Partially imaged left maxillary periapical cyst. Unremarkable soft tissues and orbits. IMPRESSION: No acute intracranial abnormality. ACT 112: Negative or not required by law. The above report was generated using voice recognition software. It may contain grammatical, syntax or spelling errors. Electronically signed by: Silverio Kc M.D. 10/26/2020 7:50 PM Head CTA 10/26/20 18:11 CT angio neck with con, CT angio head w con CLINICAL HISTORY: 75 years-old Male with amaurosis fugax. Acute loss of vision within the right thigh COMPARISON STUDY: Head CT and CTA chest of same day TECHNIQUE: Following the IV administration of 119 mL of Optiray, CT angiogram of the head and neck was performed from the aortic arch to the skull apex. Images are reviewed in the axial, sagittal, and coronal planes. 3-D MIPS images are created and assessed. IV contrast was administered without complication. All measurements were calculated based on NASCET criteria. A dose lowering technique was utilized adhering to the principles of ALARA. CT DOSE: 3226.25 mGy.cm FINDINGS: Bulky pathologic mediastinal, and bilateral supraclavicular adenopathy. Emphysema. No pneumothorax. Degenerative changes of the spine. Trace mastoid effusions. No suspicious bone lesions. Atherosclerosis of the aorta. Patency of the innominate and imaged subclavian arteries. Mild to moderate atherosclerosis of the common carotid arteries. Sev ere atherosclerosis of the right carotid bulb and proximal right ICA results in approximately 50% luminal narrowing. Moderate to extensive atherosclerosis of the left carotid bulb and proximal left ICA results in less than 50% stenosis. Tortuosity of the distal cervical segments. Atherosclerosis of the cavernous and supraclinoid segments without significant stenosis. Areas of mild luminal narrowing involving the right MCA. The middle and anterior cerebral arteries are otherwise patent and unremarkable. Dominant right vertebral artery. The vertebral arteries are patent and otherwise within normal limits. The basilar and posterior cerebral arteries. Cerebral venous sinuses are patent. No abnormal intracranial enhancement. IMPRESSION: 1. Severe atherosclerotic plaque of the right carotid bulb and proximal right ICA results in 50% stenosis. 2. Moderate to extensive atherosclerosis of the left carotid bulb and proximal left ICA results in less than 50% stenosis. 3. Otherwise unremarkable CTA of the head and neck. 4. Bulky pathologic mediastinal and supraclavicular adenopathy suspicious for lymphoma. ACT 112: Negative or not required by law. The above report was generated using voice recognition software. It may contain grammatical, syntax or spelling errors. Electronically signed by: Silverio Kc M.D. 10/26/2020 8:35 PM Neck CTA 10/26/20 18:11 CT angio neck with con, CT angio head w con CLINICAL HISTORY: 75 years-old Male with amaurosis fugax. Acute loss of vision within the right thigh COMPARISON STUDY: Head CT and CTA chest of same day TECHNIQUE: Following the IV administration of 119 mL of Optiray, CT angiogram of the head and neck was performed from the aortic arch to the skull apex. Images are reviewed in the axial, sagittal, and coronal planes. 3-D MIPS images are created and assessed. IV contrast was administered without complication. All measurements were calculated based on NASCET criteria. A dose lowering technique was utilized adhering to the principles of ALARA. CT DOSE: 3226.25 mGy.cm FINDINGS: Bulky pathologic mediastinal, and bilateral supraclavicular adenopathy. Emphysema. No pneumothorax. Degenerative changes of the spine. Trace mastoid effusions. No suspicious bone lesions. Atherosclerosis of the aorta. Patency of the innominate and imaged subclavian arteries. Mild to moderate atherosclerosis of the common carotid arteries. Severe atherosclerosis of the right carotid bulb and proximal right ICA results in approximately 50% luminal narrowing. Moderate to extensive atherosclerosis of the left carotid bulb and proximal left ICA results in less than 50% stenosis. Tortuosity of the distal cervical segments. Atherosclerosis of the cavernous and supraclinoid segments without significant stenosis. Areas of mild luminal narrowing involving the right MCA. The middle and anterior cerebral arteries are otherwise patent and unremarkable. Dominant right vertebral artery. The vert ebral arteries are patent and otherwise within normal limits. The basilar and posterior cerebral arteries. Cerebral venous sinuses are patent. No abnormal intracranial enhancement. IMPRESSION: 1. Severe atherosclerotic plaque of the right carotid bulb and proximal right ICA results in 50% stenosis. 2. Moderate to extensive atherosclerosis of the left carotid bulb and proximal left ICA results in less than 50% stenosis. 3. Otherwise unremarkable CTA of the head and neck. 4. Bulky pathologic mediastinal and supraclavicular adenopathy suspicious for lymphoma. ACT 112: Negative or not required by law. The above report was generated using voice recognition software. It may contain grammatical, syntax or spelling errors. Electronically signed by: Silverio Kc M.D. 10/26/2020 8:35 PM Resident Activity Tracking Resident Involvement: Resident Care Provided Care Provided: Adult [facility] Medicine
--- NOTE | 2020-10-27 09:19 | Consultation Report ---
DATE OF CONSULT: 10/27/2020. REASON FOR CONSULTATION: Diffuse lymphadenopathy. HISTORY OF PRESENT ILLNESS: The patient is a pleasant 75-year-old gentleman who was admitted to [facility] last night because of right sided visual disturbance. I was contacted by Dr Wolf Neves, the admitting physician, alerting me to radiographic findings that are highly concerning fo r an emerging lymphoproliferative process. The patient admits at bedside, had a similar visual episo de in which he had a significant visual field cut involving his right eye, approximately 3 months ago shortly after receiving the Shingrix vaccine. He admitted after 3 days, his vision completely elvie red and now has a similar episode which brought him to our emergency room for admission. He went thr ough extensive laboratory and radiographic workup including CTA of the head and neck, noting severe a therosclerotic plaque involving the right carotid bulb and proximal right internal carotid artery, 50 % stenosis, left carotid bulb and proximal left ICA also has 50% stenosis, otherwise unremarkable CTA of the head and neck. Meanwhile bulky pathologic mediastinal and supraclavicular lymphadenopathy wa s also noted. The patient admits to this palpable lymph node arose roughly around the time of the in itial visual insult. He also relates unintended weight loss, but denies fevers, chills or overt nigh t sweats. On examination, there is a 2 cm palpable right supraclavicular lymph node. CT of the abdomen and pel vis describes a pathologic bulky retroperitoneal adenopathy with pathologic gastrohepatic and peripor pa lymph nodes. He has subcarinal lymph node measuring 3.5 x 2.8 cm. Within the abdomen and pelvis again bulky adenopathy involving the mediastinum, hilum and retroperitoneum is noted. Again, for th e most part, this gentleman remains largely asymptomatic with the exception of unintended weight loss and a right sided visual disturbance. After being notified by Dr. Neves ordered LDH, which is well over 500. Again, certainly suspicious for an emerging lymphoproliferative process. PAST MEDICAL HISTORY: Includes hypertension and posttraumatic stress disorder. PAST SURGICAL HISTORY: Status post appendectomy and exploratory laparotomy. CURRENT MEDICATIONS: Include metoprolol and lisinopril dose is unknown. ALLERGIES: No known drug allergies. SOCIAL HISTORY: Patient is retired. He is a reformed smoker. Negative for alcohol, negative for brown bstance abuse. FAMILY HISTORY: Noncontributory. REVIEW OF SYSTEMS: CONSTITUTIONAL: As per HPI, most notably for unintended weight loss and right sided visual field cut . No fevers, chills or sweats reported. SKIN: No rashes or lesions. No history of dermatoses. HEENT: Negative for headaches, lightheadedness or dizziness. No sinus symptoms, sore throat or dysp hagia. LYMPH: Palpable right supraclavicular lymphadenopathy. CARDIAC: Negative for current angina or palpitations. PULMONARY: Negative for shortness of breath, dyspnea or orthopnea. No cough or hemoptysis. GASTROINTESTINAL: Negative for abdominal pain, nausea, vomiting, diarrhea or constipation, hematoche alexis or melena stools. GENITOURINARY: No hematuria, dysuria, urinary incontinence. PSYCHIATRIC: Positive for posttraumatic stress disorder. ENDOCRINE: Negative for diabetes or thyroid disease. NEUROLOGIC: Negative for seizure, stroke or migraine headache. MUSCULOSKELETAL: No arthralgias or myalgias. No focal muscle weakness. HEMATOLOGIC: Negative for anemia, thrombophilia or bleeding diathesis. PHYSICAL EXAMINATION: GENERAL: Very pleasant 75-year-old gentleman, awake, alert, appropriate, in no acute distress. VITAL SIGNS: Temperature 36.4, pulse 97, respiratory rate 18, blood pressure 124/80. SKIN: Warm, dry, noncyanotic without petechia, rash or ecchymosis. HEENT: Head atraumatic, normocephalic. Eyes: PERRLA, EOMI. Nares patent without rhinorrhea or dis charge. Throat is clear. Tongue midline. Mucous membranes are moist. No buccal lesions or ulcerat ions. NECK: Supple, without JVD or thyromegaly. LYMPH: Palpable 2 cm right supraclavicular lymph node. HEART: Regular rate and rhythm. No clicks, rubs, murmurs or gallops. LUNGS: Clear to auscultation bilaterally. ABDOMEN: Soft, nontender, nondistended, without palpable hepatosplenomegaly, bowel sounds are active . No rigidity or guarding. EXTREMITIES: Musculoskeletal strength and pulses are equal in all 4 quadrants. No clubbing, cyanosis or edema. NEUROLOGIC: Awake, alert and oriented x3. Cranial nerves grossly intact. LABORATORY DATA: WBC count 7320, hemoglobin 12.7, platelet count 300,000. Sodium 134, potassium 3.3 , chloride 101, carbon dioxide 26, creatinine 0.79, BUN 16, LDH 513, AST mildly elevated at 51. Albu min 3.2. IMPRESSION: 1. Right visual field disturbance. 2. Bulky lymphadenopathy on both sides of the diaphragm, suspicious for underlying lymphoproliferati ve process. 3. Elevated LDH. 4. Mild hypoalbuminemia. 5. Esophageal thickening. 6. Hypertension. PLAN: It was my pleasure to visit with the patient at bedside this morning. This gentleman describe s two visual events occurring approximately 3 months apart in which he has had pretty much a complete visual field cut on the right. The first event happened shortly after receiving Shingrix vaccine. He also took note of the right supraclavicular lymph node at that time. The patient has engaged in d ietary modification, but clearly he has lost additional weight, which was unintended approximately 40 pounds to be precise. Upon presentation to [facility] he underwent an MRA of the head and neck, which revealed atherosclerotic disease of the carotid distributions bilaterally. Enrike tionally, lymphadenopathy was noted on those images, which led to a CT scan of the chest, abdomen and pelvis. Radiographically, he has lymphadenopathy in both sides of the diaphragm. The right supracl avicular lymph node is very palpable and easily removed by General Surgery. Recommend General Surger y consult for tissue diagnosis. Not sure at this point if his visual issues are connected and strong ly encourage Ophthalmology consultation moving forward. The patient does not appear to be having B s ymptoms and is relatively asymptomatic. Thus, there is no urgency to begin any form of chemotherapy and we will await formal confirmation. Thereafter, we will plan to have the patient reconvene in our office to discuss further staging including bone marrow biopsy and aspiration and potentially inducti on chemotherapy. Have no further additions and if there are questions or concerns, feel free to cont act me at any time. Thank you very much for allowing me to participate in the care of this gentleman. Job ID: [id number]
--- NOTE | 2020-10-27 10:41 | Gastrointestinal Consultation ---
Date of Consultation October 27, 2020 Assessment & Plan (1) Abnormal CT scan, esophagus: -Keep NPO for EGD today -Further recommendations pending results of testing Supervising Physician Co-Signing Physician Notes Agree with FELICIANO Stanley as above Abd: Soft, NT, ND, +BS Continue current therapy and supportive care Proceed with EGD now History of Present Illness Reason for Consultation: Abnormal CT of the esophagus Attending Physician: Niall Ralph MD History of Present Illness Patient is a 75 yo male with a PMH of HTN who presented to the hospital with vision changes that have been ongoing x 3 weeks. GI has been consulted for an abnormal CT scan of the esophagus. The patient notes that he has not had any abdominal pain, nausea, vomiting, dysphagia, heartburn, reflux, or change in his bowel habits. He notes improvement of his vision issues. He underwent a thorough work-up with CT imaging of the head, neck, abdomen, pelvis, & chest. Noted throughout imaging studies was concern for mediastinal and supraclavicular adenopathy suspicious for lymphoma vs mets. A filling defect of superior pole of the right kidney was noted concerning for possible neoplasm. There was concern for mass-like thickening of the esophagus & endoscopic evaluation was suggested. Patient denies a PMH of GI issues and has never had an EGD or colonoscopy. He has been NPO since yesterday. He reports some weight loss since May of around 40 lbs, but he does clarify with me that he has been making some efforts to lose weight too. No pertinent family history of GI issues. He was a former smoker. Allergies Allergy/AdvReac Type Severity Reaction Status Date / Time No Known Allergies Allergy Unknown Verified 10/26/20 18:47 Home Medications Medication Instructions Recorded Confirmed Type lisinopril 1 tab PO DAILY 10/26/20 10/26/20 History metoprolol succinate 1 tab PO DAILY 10/26/20 10/26/20 History Patient History Medical History Hypertension PTSD (post-traumatic stress disorder) Surgical History History of appendectomy History of exploratory laparotomy Family History Other Cancer Social History Smoking Status: Former smoker Second Hand Exposure: Yes (Growing up both parents smoked); Hx Alcohol Use: No Hx Substance Use: No Preferred Language: Bhutanese Communication Ability: Effective 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 Beliefs That Will Affect Care: None Current Living Situation: Alone Feels Safe at Home: Yes Assistive Devices: None Review of Systems Constitutional: no fever and no chills Respiratory: no cough and no dyspnea Cardiovascular: no chest pain Gastrointestinal: no abdominal pain, no heartburn, no nausea, no vomiting, no coffee ground emesis, no hematemesis, no change in bowel habits, no blood in stools and no melena Musculoskeletal: no body aches Integumentary: no rash Psychiatric: no problem reported Physical Exam Constitutional: WD/WN, vitals as above Respiratory: normal respiratory effort, lungs clear to auscultation Cardiovascular: RRR, no murmur, no edema Gastrointestinal (Abdomen): normal bowel sounds, soft, nontender, no hepat osplenomegaly Musculoskeletal: Head/Neck/Chest: normocephalic Psychiatric: Orientation: alert and oriented x 3 Results & Data ([facility]) Vital Signs (Past 12 Hours) Vital Signs Temp Pulse Pulse Pulse Resp BP BP 10/27/20 07:00 36.4 C L 97 H 18 124/80 10/27/20 02:13 78 10/27/20 02:00 36.7 C 79 16 129/77 10/27/20 01:18 94 H 24 10/27/20 00:00 92 H 22 131/86 10/26/20 22:46 136/95 Pulse Ox 10/27/20 07:00 95 10/27/20 02:13 10/27/20 02:00 96 10/27/20 01:18 96 10/27/20 00:00 94 10/26/20 22:46 PG Care Time/CCT Total # of Minutes Spent Total Time Spent with Patient: Total time spent is greater than 50% in coordi nation of care (as documented) at patient's floor/unit and/or counseling patient: Coding Level of Care Code 17125 Initial Inpt Care Lvl [address] scan, esophagus R93.3
--- NOTE | 2020-10-27 11:38 | Surgery Consultation ---
Date of Consultation October 27, 2020 Assessment & Plan (1) Lymphadenopathy: Await results of EGD. Lymph node biopsy possibly Friday or can be done later in the week as an outpatient. Supervising Physician Co-Signing Physician Notes Patient at EGD when I went to examine, films and history reviewed, agree with above. Admitted for visual change in right eye, CT showed 50% carotid stenosis but bulky lymphadenopathy and distal esophageal thickening. Surgery consulted for lymph node biopsy. EGD shows ulcerating partially obstruction mass. Will await pathology results, likely doesn't need lymph node biopsy if this proves to be cancer. may need port. We can perform either next week. History of Present Illness Attending Physician: Niall Ralph MD History of Present Illness 75 y/o male with visual changes right eye found to have abdominal and thoracic adenopathy with esophageal thickening. 45 pound weight loss although was trying to lose some weight. EGD planned for this afternoon, surgery c/s for LN biopsy. Allergies Allergy/AdvReac Type Severity Reaction Status Date / Time No Known Allergies Allergy Unknown Verified 10/27/20 13:46 Home Medications Medication Instructions Recorded Confirmed Type lisinopril 1 tab PO DAILY 10/26/20 10/26/20 History metoprolol succinate 1 tab PO DAILY 10/26/20 10/26/20 History Patient History Medical History (Updated 10/27/20 @ 14:31 by Denice Stinson MD) Abnormal CT scan, esophagus Esophageal thickening Hypertension Lymphadenopathy PTSD (post-traumatic stress disorder) Surgical History History of appendectomy History of exploratory laparotomy Family History Other Cancer Social History Smoking Status: Former smoker Second Hand Exposure: Yes (Growing up both parents smoked); Hx Alcohol Use: No Hx Substance Use: No Preferred Language: Kuwaiti Communication Ability: Effective Mission Planner Required: No Beliefs That Will Affect Care: None Current Living Situation: Alone Feels Safe at Home: Yes Assistive Devices: None Review of Systems Constitutional: + fatigue and + weight gain; no fever, no chills and no anorexia Gastrointestinal: no abdominal pain, no bloating, no heartburn, no nausea, no pain with swallowing and no dysphagia Hematologic / Lymphatic: no lymphadenopathy and no night sweats Physical Exam Constitutional: WD/WN, vitals as above Respiratory: normal respiratory effort, lungs clear to auscultation Cardiovascular: RRR, no murmur, no edema Gastrointestinal (Abdomen): normal bowel sounds, soft, nontender, no hepatos plenomegaly Lymphatic: + cervical lymphadenopathy Results & Data ([facility]) Vital Signs (Past 12 Hours) Vital Signs Temp Pulse Pulse Pulse Resp BP BP 10/27/20 07:00 36.4 C L 97 H 18 124/80 10/27/20 02:13 78 10/27/20 02:00 36.7 C 79 16 129/77 10/27/20 01:18 94 H 24 10/27/20 00:00 92 H 22 131/86 Pulse Ox 10/27/20 07:00 95 10/27/20 02:13 10/27/20 02:00 96 10/27/20 01:18 96 10/27/20 00:00 94 PG Care Time/CCT Total # of Minutes Spent Total Time Spent with Patient: Total time spent is greater than 50% in coordination of care (as documented) at patient's floor/unit and/or counseling patient: Coding Level of Care Code 67619 Initial Inpt Care Lvl 1 Diagnoses Lymphadenopathy R59.1
--- NOTE | 2020-10-27 13:40 | XCELERA ---
[id number]
--- NOTE | 2020-10-27 14:31 | Anesthesiology Consultation ---
Date of Service October 27, 2020 History Surgery Operation Date: 10/27/20 18:25 Proposed Procedures p Esophagogastroduodenoscopy Dr Cabrera - Perico Ellington Case, DO Height/Weight Height: 6 ft 2 in Weight: 102.6 kg Allergies Allergy/AdvReac Type Severity Reaction Status Date / Time No Known Allergies Allergy Unknown Verified 10/27/20 13:46 Medications Home Medications Medication Instructions Recorded Confirmed Last Taken lisinopril 1 tab PO DAILY 10/26/20 10/26/20 Unknown metoprolol succinate 1 tab PO DAILY 10/26/20 10/26/20 10/26/20 NPO Date Last Intake of Fluids: 10/26/20 Time Last Intake of Fluids: 00:00 Date Last Intake of Solids: 10/26/20 Time Last Intake of Solids: 02:10 Past Medical History Medical History (Updated 10/27/20 @ 14:31 by Denice Stinson MD) Abnormal CT scan, esophagus Esophageal thickening Hypertension Lymphadenopathy PTSD (post-traumatic stress disorder) Past Family History Family History Other Cancer Past Surgical History Surgical History History of appendectomy History of exploratory laparotomy Social History Smoking Status: Former smoker Do You Dip or Chew Tobacco: No Hx Alcohol Use: No Hx Substance Use: No substance use type: marijuana Last Used Substance: Days (ago) Physical Exam Vital Signs Last Vital Signs Temp 36.9 C 10/27/20 13:52 Pulse 99 H 10/27/20 13:52 Resp 20 10/27/20 13:52 BP 124/95 10/27/20 13:52 Pulse Ox 94 10/27/20 13:52 Testing Laboratory Results 10/27/20 05:25 10/27/20 05:25 Hemoglobin A1c 5.7 % (4.5-5.6) H 10/27/20 05:25 Urine Color Yellow 10/26/20 22:45 Urine Appearance Cloudy (Clear) A 10/26/20 22:45 Urine pH 6.0 (4.5-7.5) 10/26/20 22:45 Ur Specific [place] > 1.045 (1.000-1.030) H 10/26/20 22:45 Urine Protein Trace (Negative) H 10/26/20 22:45 Urine Glucose (UA) Negative (Negative) 10/26/20 22:45 Urine Ketones Negative (Negative) 10/26/20 22:45 Urine Nitrite Negative (Negative) 10/26/20 22:45 Ur Leukocyte Esterase Negative (Negative) 10/26/20 22:45 Urine WBC (Auto) 5-10 /hpf (0-5) H 10/26/20 22:45 Urine RBC (Auto) >30 /hpf (0-4) H 10/26/20 22:45 U Hyaline Cast (Auto) 5-10 /lpf (0-5) H 10/26/20 22:45 U Epithel Cells (Auto) 10-20 /lpf (0-5) H 10/26/20 22:45 Urine Bacteria (Auto) Negative (Negative) 10/26/20 22:45
--- NOTE | 2020-10-27 14:54 | GI REPORT ---
Patient Name: Zhen Morales Procedure Date: 10/27/2020 1:47 PM Date of : 1945 Admit Type: Inpatient Age: 75 Gender: Male Attending MD: Perico Cabrera DO Procedure: Upper GI endoscopy Providers: Perico Cabrera DO Referring MD: Alireza Ralph Indications: Abnormal CT of the GI tract Medicines: Monitored Anesthesia Care Complications: No immediate complications. Estimated Blood Loss: Estimated blood loss: none. Procedure: Pre-Anesthesia Assessment: - Prior to the procedure, a History and Physical was performed, and patient medications and allergies were reviewed. The patient's tolerance of previous anesthesia was also reviewed. The risks and benefits of the procedure and the sedation options and risks were discussed with the patient. All questions were answered, and informed consent was obtained. Prior Anticoagulants: The patient has taken no previous anticoagulant or antiplatelet agents. ASA Grade Assessment: III - A patient with severe systemic disease. After reviewing the risks and benefits, the patient was deemed in satisfactory condition to undergo the procedure. After obtaining informed consent, the endoscope was passed under direct vision. Throughout the procedure, the patient's blood pressure, pulse, and oxygen saturations were monitored continuously. The Endoscope was introduced through the mouth, and advanced to the second part of duodenum. The upper GI endoscopy was accomplished without difficulty. The patient tolerated the procedure well. Findings: A large, ulcerating mass with bleeding was found at the gastroesophageal junction, 36 to 40 cm from the incisors. The mass was partially obstructing and not circumferential. Biopsies were taken with a cold forceps for histology. A small hiatal hernia was present. The examined duodenum was normal. 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 Biopsied. - Small hiatal hernia. - Normal examined duodenum. Recommendation: - [facility] patient to [facility] for [facility] care. - Full liquid diet today. - Continue present medications. - Perform an upper endoscopic ultrasound (UEUS) at appointment to be scheduled. Perico Cabrera DO 10/27/2020 2:54:13 PM This report has been signed electronically. Note Initiated On: 10/27/2020 1:47 PM Number of Addenda: 0 I attest to the content of the Intraoperative Record and orders documented therein, exceptions below {[id number]}
[2020-10-27] MEDS ORDERED: PROPOFOL IV EMULSION 10 MG/ML 20 ML VIAL IV ONE (14:56)
[2020-10-27] MEDS ORDERED: LIDOCAINE 2% 2 ML VIAL/AMP(20MG/ML) INFIL ONE (14:56)
--- NOTE | 2020-10-27 15:42 | Anesthesiology Progress Note ---
Date of Service October 27, 2020 Anesthesia Post Procedure Vital Signs Vital Signs: Temp Pulse Pulse Pulse Resp BP BP 10/27/20 15:25 93 H 16 124/80 10/27/20 15:10 93 H 16 119/85 10/27/20 14:55 89 16 115/74 10/27/20 13:52 36.9 C 99 H 20 124/95 10/27/20 11:59 35.9 C L 92 H 20 123/88 10/27/20 07:00 36.4 C L 97 H 18 124/80 10/27/20 02:13 78 10/27/20 02:00 36.7 C 79 16 129/77 10/27/20 01:18 94 H 24 10/27/20 00:00 92 H 22 10/26/20 22:46 10/26/20 22:17 82 24 10/26/20 20:24 88 12 10/26/20 18:36 91 H 18 10/26/20 16:08 36.5 C 107 H 18 148/73 H BP Pulse Ox 10/27/20 15:25 97 10/27/20 15:10 95 10/27/20 14:55 97 10/27/20 13:52 94 10/27/20 11:59 95 10/27/20 07:00 95 10/27/20 02:13 10/27/20 02:00 96 10/27/20 01:18 96 10/27/20 00:00 131/86 94 10/26/20 22:46 136/95 10/26/20 22:17 174/100 H 96 10/26/20 20:24 153/99 H 94 10/26/20 18:36 153/99 H 99 10/26/20 16:08 97 Transfer of Care Handoff Completed per policy Notes Mental Status: alert / awake / arousable and participated in evaluation Patient Amnestic to Procedure: Yes Nausea / Vomiting: adequately controlled Pain: adequately controlled Airway Patency, RR, SpO2: stable & adequate BP & HR: stable & adequate Hydration State: stable & adequate Anesthetic Complications: no major complications apparent and Pt Satisfied with anesthetic care
--- NOTE | 2020-10-27 17:34 | Electrocardiogram Report ---
Test Reason : Blood Pressure : / mmHG Vent. Rate : 091 BPM Atrial Rate : 091 BPM P-R Int : 192 ms QRS Dur : 080 ms QT Int : 366 ms P-R-T Axes : 047 032 041 degrees QTc Int : 450 ms Sinus rhythm with marked sinus arrhythmia Otherwise normal ECG When compared with ECG of 10-APR-2006 07:09, Aberrant conduction is no longer Present QT has shortened Confirmed by Alireza Clemente ([id number]) on 10/27/2020 5:34:32 PM Referred By: REFERRED SELF Confirmed By:Howard Clemente
[2020-10-27] MEDS ORDERED: ZOLPIDEM TARTRATE 5 MG TAB PO PRN (18:25)
[2020-10-28] MEDS ORDERED: METOPROLOL TARTRATE 25 MG TAB PO STA (01:13)
[2020-10-28] MEDS ORDERED: METOPROLOL TARTRATE 1 MG/ML VIAL IV STA (01:13)
[2020-10-28] MEDS: METOPROLOL SUCC 25MG EXT REL TAB PO SCH (08:15)
--- NOTE | 2020-10-28 09:26 | Surgery Progress Note ---
Date of Service October 28, 2020 Assessment & Plan (1) Esophageal mass: Plan: Yesterday patient underwent EGD revealing a partially obstructing esophageal mass. Biopsies taken - Awaiting pathology from EGD biopsies, if + for cancer likely will not need biopsy of lymphadenopathy - We will discuss with patient placing a mediport if needed for chemo if + for cancer and/or biopsy the lymphadenopathy sometime next week either as inpt or as an outpt. If he is discharged he may follow up with Dr. Bonilla next week Admission and Anticipated Discharge Date Admission Date: October 26, 2020 Supervising Physician Co-Signing Physician Notes PNT S&E, agree with above. Admitted with visual changes, noted to have esophageal thickening and lymphadenopathy. EGD yesterday with ulcerated partially obstructing esophageal mass, biopsies pending. on exam afvss, right cervical lymphadenopathy. labs wnl except for LDH on admission. imaging reviewed yesterday. Likely esophageal primary, await path on biopsies, if lymph node still and issue or patient needs port can be performed as outpatient. Further workup for visual changes. surgery will sign off, call with questions or concerns. Subjective Patient offers no complaints this AM. Tolerating full liquids, no naus ea/vomiting. Physical Exam Physical Exam: awake/alert, sitting up in chair Musculoskeletal: + palpable R supraclavicular LN Results & Data ([facility]) Vital Signs (Past 12 Hours) Vital Signs Temp Pulse Pulse Resp BP BP Pulse Ox 10/28/20 08:04 36.9 C 73 18 129/77 98 10/28/20 07:11 69 10/28/20 02:46 36.4 C L 73 18 135/81 97 10/28/20 01:44 98 H 126/82 10/28/20 01:28 149 H 119/86 10/28/20 01:25 149 H 119/86 10/28/20 01:19 36.5 C 149 H 18 119/86 95 10/27/20 23:36 36.5 C 120 H 18 155/89 H 99 10/27/20 22:19 84 PG Care Time/CCT Total # of Minutes Spent Total Time Spent with Patient: Total time spent is greater than 50% in coordination of care (as documented) at patient's floor/unit and/or counseling patient: Coding Level of Care Code 22435 Subseq Hosp Care Lvl 1 Diagnoses Esophageal mass K22.8
[2020-10-28] MEDS ORDERED: LORazepam 1 MG TAB PO STA (09:53)
[2020-10-28] MEDS ORDERED: LORazepam 1 MG/2 ML VIAL IV STA (09:56)
--- NOTE | 2020-10-28 11:53 | Electrocardiogram Report ---
Test Reason : Blood Pressure : / mmHG Vent. Rate : 106 BPM Atrial Rate : 318 BPM P-R Int : 000 ms QRS Dur : 080 ms QT Int : 320 ms P-R-T Axes : 099 005 064 degrees QTc Int : 425 ms Atrial flutter with variable A-V block Poor R wave progression, consider anterior LA vs. lead placement vs. LVH Abnormal ECG When compared with ECG of 26-OCT-2020 17:58, Atrial flutter has replaced Sinus rhythm HR has increased by 15 bpm Confirmed by Eduard Aguilar ([id number]) on 10/28/2020 11:53:39 AM Referred By: REFERRED SELF Confirmed By:Eduard Aguilar
[2020-10-28 13:46] LABS: BUN Creatinine Ratio 11.9 (10-20); Calcium 9.1 mg/dl (8.5-10.1); Creatinine Clr Calc Pharmacy 82.2 ml/min; Est GFR (African American) 84.5 ml/min; Est GFR (Non-African American) 72.9 ml/min; Potassium 3.5 mmol/L (3.5-5.1)
--- NOTE | 2020-10-28 13:47 | Magnetic Resonance Report ---
MR brain wo con HISTORY: 75 years-old Male r/o CVA . Acute strokelike symptoms COMPARISON: CT head, CTA head and neck 10/26/2020 TECHNIQUE: Multiplanar multisequence MRI of the brain was obtained without the use of IV contrast. FINDINGS: Order Checker localizer images demonstrate no gross extracranial abnormality. No restricted diffusion to sugg est acute or subacute infarct. No acute intracranial hemorrhage, midline shift, abnormal extra-axial collection, hydrocephalus or intracranial mass. No pathologic blooming artifact. Age-related involuti onal changes with moderate T2/FLAIR hyperintensities about the white matter suggestive of chronic duyen rovascular ischemic disease. Cerebral venous sinuses and major arterial flow voids are patent. Right greater than left mastoid effusions. Minimal mucosal thickening of the ethmoid air cells. The skull, orbits and soft tissues are unremarkable. IMPRESSION: 1. No acute intracranial abnormality. No acute or subacute infarct. 2. Age-related involutional changes with chronic microvascular ischemic disease. ACT 112: Negative or not required by law. The above report was generated using voice recognition software. It may contain grammatical, syntax o r spelling errors. Electronically signed by: Silverio Kc M.D. 10/28/2020 1:46 PM
[2020-10-28] MEDS ORDERED: POTASSIUM CHLORIDE CRTAB 20 MEQ TABCR PO STA (14:56)
--- NOTE | 2020-10-28 16:51 | Hospitalist Progress Note ---
Date of Service October 28, 2020 Assessment & Plan (1) Visual disturbance: Plan: 75yo male with second episode of monocular visual disturbance. Patient describes "a filter" over his right eye as well as darkened vision with streaking. He has an moderately elevated ESR as well of 43. No additional evidence for GCA. Patient found with severe atherosclerotic plaque of the right carotid bulb and proximal right ICA with 50% stenosis. Ddx to include carotid disease, cardioembolic phenomenon. ?GCA given elevation of ESR - with findings of diffuse bulky LAD this may be co-occurring with lymphoma - may be seen in NHL? -2D echo performed --> mild effusion otherwise unremarkable -[facility] -Started on 81mg aspirin daily. -Will hold off on Steroids for now. -Vascular surgery consulted for carotid stenosis which may be causing his rec urring visual deficits --> vascular said its marginal and can be discharged on ASA and anticoag. f/u outpatient. -Visual disturbance came back in late afternoon --> consulted Ophtho, said it can be followed outpatient. (2) Esophageal mass: Plan: -GI discharged the patient and says to follow up this next week for an EUS to further evaluate esophageal mass. 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 (4) A-fib: Plan: -Patient should be on anticoagulation --> will start Xarelto. (5) PTSD (post-traumatic stress disorder): Plan: -given Ambien at night as needed to help him sleep (6) Hypertension: Plan: Blood pressure well controlled at present. He is currently taking Lisinopril and Metoprolol, uncertain of doses. -Hold for now, request records -Continue to monitor blood pressure Plan: Ppx - SCDs Code - Full Dispo - possible discharge tomorrow Admission and Anticipated Discharge Date Admission Date: October 26, 2020 Supervising Physician Co-Signing Physician Notes Attending attestation Pt seen and examined in concert with Dr. Silver. In agreement with the documented findings as noted in the resident documentation with any exceptions or additions as noted here. After consideration today, patient reports that his visual symptoms have not yet resolved - he still feels like part of his vision is dimmed in that eye, more noticeably with TV or window blinds open without any other symptoms at present. Slept well last night "for the first time in a long time". On Exmaination, S1/S2 nl RRR no MCG. CTAB. Abd mild distention, nontender. BS+ve. PERRLA, EOMI, CNII-XII otherwise grossly intact Visual disturbance, ongoing - MRI brain without apparent pathology, CTA head/neck shows >50% plaque of right carotid bulb, vascular surgery states nothing for intervention at present. Echo with isolated anterior effusion without tamponade. Discussion with ophthalmology recs outpatient evaluation this week, will need scheduled w/ CM. Vasc recommendation for DAPT, but see AF below. Paroxysmal AF - single run of asymptomatic AF without previous history of same or any sx. Discussion of management in light of current sx, will start Xarelto and ASA as well as statin therapy. Continue metoprolol 25mg. New lesion suspicious for neoplasia - GI and surg consultation - awaiting path from EGD. Per surgery, f/u outpatient for LN bx Prediabetes - A1c 5.7% - will need outpatient follow up. Counseling provided. HTN - continue metoprolol. Else see resident documentation as noted. Subjective Patient was in good spirits in the morning. Slept very well, best in years. In afternoon however, his resolved visual disturbance started coming back but othe rwise stable. Denies fever, SOB, chest pain. Review of Systems Review of Systems: All systems reviewed & are unremarkable except as noted in HPI & below Physical Exam Physical Exam: HEENT: PERRL, EOMI, anicteric sclera, conjunctiva without injection, external ear normal to inspection and nontender, nares patent, moist mucus membranes, dentition intact, no oropharyngeal lesions, neck supple, trachea midline, +LAD - firm palpable node right neck, mobile, nontender, no thyromegaly, no JVD Constitutional: WD/WN, vitals as above Neck: normal visual inspection and + thick neck Respiratory: normal respiratory effort, lungs clear to auscultation normal respiratory effort Auscultation: lungs clear to auscultation bilaterally Cardiovascular: RRR, no murmur, no edema Rate/Rhythm: regular rate and regular rhythm Gastrointestinal (Abdomen): normal bowel sounds, soft, nontender, no hepatosplenomegaly Musculoskeletal: Head/Neck/Chest: normocephalic Psychiatric: Orientation: alert and oriented x 3 Lymphatic: + cervical lymphadenopathy Results & Data Results & Data ([facility]) Vital Signs (Past 12 Hours) Vital Signs Temp Pulse Pulse Resp BP Pulse Ox 10/28/20 15:00 79 10/28/20 11:10 36.3 C L 76 18 156/83 H 96 10/28/20 08:04 36.9 C 73 18 129/77 98 10/28/20 07:11 69 Resident Activity Tracking Resident Involvement: Resident Care Provided Care Provided: Adult Hospital Medicine
[2020-10-28] MEDS: ATORVASTATIN 40 MG TAB PO SCH (20:12)
[2020-10-28] MEDS: ASPIRIN 81 MG ECTAB PO SCH (20:12)
[2020-10-28] MEDS: RIVAROXABAN 20 MG TAB PO SCH (20:13)
[2020-10-29] MEDS: ATORVASTATIN 40 MG TAB PO SCH (08:44)
[2020-10-29] MEDS: METOPROLOL SUCC 25MG EXT REL TAB PO SCH (08:44)
[2020-10-29] MEDS: ASPIRIN 81 MG ECTAB PO SCH (08:45)
--- NOTE | 2020-10-29 13:20 | Discharge Summary ---
Date of Service October 29, 2020 Admission HPI Per Admitting Provider Zhen Morales is a 75yo male with history of HTN presenting with transient monocular visual disturbance. Patient's first event occurred appx 3 weeks ago when he had an episode of visual disturbance in his right eye. He describes it as "a filter" covering his eye. He denies eye pain, headache, scalp tenderness, jaw claudication. He reports feeling generalized fatigue and malaise during this episode and his symptoms lasted appx 3 days then returned to normal. This morning around 11:00 patient had a similar episode - states that he had "a filter" over his right eye. Then his vision became dark with blue streaks. [facility] and reported these symptoms and was subsequently sent to the ER. He reports approximately 70% improvement in his symptoms since this AM. He denies fever/chills/weakness/fatigue. Denies headache/scalp tenderness/jaw claudication/rashes/shoulder girdle weakness/focal numbness or weakness. He denies nausea/vomiting/diarrhea/constipation. Denies slurred speech. Patient found to have bulky LAD in neck, chest and abdomen on imaging. He does endorse some unintentional weight loss - reports his weight was 276# on 05/24/20 then was 229# today. Denies night sweats. Appetite has been decreased since May. No additional complaints at this time. Admission Exam Per Admitting Provider General: patient resting comfortably, NAD, non-toxic in appearance, AA&O x 4 Skin: warm, dry, intact, scattered bruises on forearms and hands HEENT: NC/AT, PERRL, EOMI, anicteric sclera, conjunctiva without injection, external ear normal to inspection and nontender, nares patent, moist mucus membranes, dentition intact, no oropharyngeal lesions, neck supple, trachea midline, +LAD - firm palpable node right neck, mobile, nontender, no thyromegaly, no JVD Heart: +S1/S2, regular, no m/r/g Lungs: equal air entry bilaterally, no rales/rhonchi/wheezes Abd: +BS, soft, NT/ND, post-operative changes, no masses/organomegaly/ascites Ext: warm, 2+ pulses in UE/LE bilaterally, no clubbing/cyanosis or edema Neuro: nonfocal, patient AA&O x 4, speech intact, no facial droop, moving all extremities on command with equal strength 5/5 Principal Diagnosis Monocular Visual Defect Discharge Exam Constitutional WD/WN, vitals as above Neck normal visual inspection and + thick neck Respiratory normal respiratory effort, lungs clear to auscultation normal respiratory effort Auscultation: lungs clear to auscultation bilaterally Cardiovascular RRR, no murmur, no edema Rate/Rhythm: regular rate and regular rhythm Gastrointestinal (Abdomen) normal bowel sounds, soft, nontender, no hepatosplenomegaly Musculoskeletal Head/Neck/Chest: normocephalic Psychiatric Orientation: alert and oriented x 3 Lymphatic + cervical lymphadenopathy Discharge Data Allergies Allergy/AdvReac Type Severity Reaction Status Date / Time No Known Allergies Allergy Unknown Verified 10/27/20 13:46 Consultations 10/26/20 21:25 ED Decision to Admit Stat 10/27/20 01:54 Consult Gastroenterology Routine Consult General Surgery Routine Consult Oncology Routine 10/27/20 19:17 Consult Vascular Surgery Routine Procedures Performed Operation Date: 10/27/20 18:25 Actual Procedures p EGD Biopsy Cytology - Perico Ellington Case, DO Ordered Studies 10/26/20 18:11 CT abd pelvis IV con only Stat CT angio chest PE protocol Stat CT angio head w con Stat CT angio neck with con Stat CT head/brain wo con Stat 10/26/20 20:53 US point of care ultrasound Stat 10/28/20 09:29 MR brain wo con Stat Laboratory Results WBC 7.32 K/uL (4.8-10.8) 10/27/20 05:25 RBC 4.18 M/uL (4.7-6.1) L 10/27/20 05:25 Hgb 12.7 g/dL (14.0-18.0) L 10/27/20 05:25 Hct 36.3 % (42-52) L 10/27/20 05:25 MCV 86.8 fL (80-100) 10/27/20 05:25 MCH 30.4 pg (25-34) 10/27/20 05:25 MCHC 35.0 g/dL (32-36) 10/27/20 05:25 RDW Std Deviation 45.1 fL (36.4-46.3) 10/27/20 05:25 RDW Coeff of Francois 14.3 % (11.5-14.5) 10/27/20 05:25 Plt Count 300 K/uL (130-400) 10/27/20 05:25 MPV 9.3 fL (7.4-10.4) 10/27/20 05:25 Immature Gran % (Auto) 0.3 % 10/27/20 05:25 Neut % (Auto) 72.3 % 10/27/20 05:25 Lymph % (Auto) 16.8 % 10/27/20 05:25 [place] % (Auto) 8.6 % 10/27/20 05:25 Eos % (Auto) 1.5 % 10/27/20 05:25 Baso % (Auto) 0.5 % 10/27/20 05:25 Neut # (Auto) 5.29 K/uL (1.4-6.5) 10/27/20 05:25 Lymph # (Auto) 1.23 K/uL (1.2-3.4) 10/27/20 05:25 [place] # (Auto) 0.63 K/uL (0.11-0.59) H 10/27/20 05:25 Eos # (Auto) 0.11 K/uL (0-0.5) 10/27/20 05:25 Baso # (Auto) 0.04 K/uL (0-0.2) 10/27/20 05:25 Immature Gran # (Auto) 0.02 K/uL (0.00-0.02) 10/27/20 05:25 ESR 43 mm/hr (0-20) H 10/26/20 18:30 Sodium 134 mmol/L (136-145) L 10/28/20 13:15 Potassium 3.5 mmol/L (3.5-5.1) 10/28/20 13:15 Chloride 101 mmol/L (98-107) 10/28/20 13:15 Carbon Dioxide 28 mmol/L (21-32) 10/28/20 13:15 Anion Gap 5.0 (3-11) 10/28/20 13:15 BUN 12 mg/dl (7-18) 10/28/20 13:15 Creatinine 1.01 mg/dl (0.6-1.4) 10/28/20 13:15 Est Cr Clr Drug Dosing 82.2 ml/min 10/28/20 13:15 Est GFR ( Amer) 84.5 ml/min 10/28/20 13:15 Est GFR (Non-Af Amer) 72.9 ml/min 10/28/20 13:15 BUN/Creatinine Ratio 11.9 (10-20) 10/28/20 13:15 Glucose 87 mg/dl (70-99) 10/28/20 13:15 Estimat Average Glucose 117 mg/dl 10/27/20 05:25 Hemoglobin A1c 5.7 % (4.5-5.6) H 10/27/20 05:25 Calcium 9.1 mg/dl (8.5-10.1) 10/28/20 13:15 Phosphorus 3.6 mg/dl (2.5-4.9) 10/26/20 18:30 Magnesium 2.1 mg/dl (1.8-2.4) 10/26/20 18:30 Total Bilirubin 0.6 mg/dl (0.2-1) 10/26/20 18:30 Direct Bilirubin 0.2 mg/dl (0-0.2) 10/26/20 18:30 AST 51 U/L (15-37) H 10/26/20 18:30 ALT 32 U/L (12-78) 10/26/20 18:30 Alkaline Phosphatase 96 U/L (45-117) 10/26/20 18:30 Lactate Dehydrogenase 513 U/L (87-241) H 10/27/20 05:25 Troponin I < 0.015 ng/ml (0-0.045) 10/26/20 18:30 C-Reactive Protein 1.83 mg/dl (0-0.29) H 10/26/20 18:30 NT-Pro-B Natriuret Pep 363 pg/ml (0-900) 10/26/20 18:30 Total Protein 8.2 gm/dl (6.4-8.2) 10/26/20 18:30 Albumin 3.2 gm/dl (3.4-5.0) L 10/26/20 18:30 Globulin 5.0 gm/dl (2.5-4.0) H 10/26/20 18:30 Albumin/Globulin Ratio 0.6 (0.9-2) L 10/26/20 18:30 Triglycerides 118 mg/dl (0-150) 10/27/20 05:25 Cholesterol 182 mg/dl (0-200) 10/27/20 05:25 LDL Cholesterol, Calc 131 mg/dl 10/27/20 05:25 VLDL Cholesterol, Calc 24 mg/dl 10/27/20 05:25 HDL Cholesterol 27 mg/dl 10/27/20 05:25 Cholesterol/HDL Ratio 7 10/27/20 05:25 TSH 4.260 uIu/ml (0.300-4.500) 10/26/20 18:30 Urine Color Yellow 10/26/20 22:45 Urine Appearance Cloudy (Clear) A 10/26/20 22:45 Urine pH 6.0 (4.5-7.5) 10/26/20 22:45 Ur Specific [place] > 1.045 (1.000-1.030) H 10/26/20 22:45 Urine Protein Trace (Negative) H 10/26/20 22:45 Urine Glucose (UA) Negative (Negative) 10/26/20 22:45 Urine Ketones Negative (Negative) 10/26/20 22:45 Urine Blood 3+ (Negative) H 10/26/20 22:45 Urine Nitrite Negative (Negative) 10/26/20 22:45 Urine Bilirubin Negative (Negative) 10/26/20 22:45 Urine Urobilinogen Negative (Negative) 10/26/20 22:45 Ur Leukocyte Esterase Negative (Negative) 10/26/20 22:45 Urine WBC (Auto) 5-10 /hpf (0-5) H 10/26/20 22:45 Urine RBC (Auto) >30 /hpf (0-4) H 10/26/20 22:45 U Hyaline Cast (Auto) 5-10 /lpf (0-5) H 10/26/20 22:45 U Epithel Cells (Auto) 10-20 /lpf (0-5) H 10/26/20 22:45 Urine Bacteria (Auto) Negative (Negative) 10/26/20 22:45 COVID-19 Eval Order Covid19 at [facility] 10/26/20 18:26 SARS-CoV-2 (PCR) NEGATIVE (Negative) 10/26/20 18:26 Impressions Abdomen/Pelvis CT 10/26/20 18:11 CT angio chest PE protocol, CT abd pelvis IV con only HISTORY: 75 years-old Male with PE. Acute chest and abdominal pain with weight loss TECHNIQUE: Multiple CTA images of the chest were obtained after the intravenous administration of 119 ml Optiray. Coronal and sagittal MIPS were obtained from the axial data set and were submitted for review. All measurements were obt ained according to NASCET criteria. CT abdomen pelvis with IV contrast only was also obtained. A dose lowering technique was utilized adhering to the principles of ALARA. COMPARISON: CT abdomen and pelvis 04/08/2006. FINDINGS: CTA: Mild cardiomegaly. Pericardial effusion measures up to 9 mm anteriorly. Moderate coronary artery calcifications. Fusiform dilation of the ascending thoracic aor ta, 4.7 x 4.7 cm. Extensive associated thoracic atherosclerosis. The descending thoracic aorta measures up to 3.5 cm at the level of the diaphragmatic hiatus. No dissection. Patency of the imaged great vessels. Unremarkable pulmonary artery. No pulmonary emboli identified. CT CHEST: Unremarkable thyroid. Bulky pathologic mediastinal and hilar adenopathy include subcarinal adenopathy measuring up to 6.9 x 3.5 cm. Pathologic periesophageal retrocrural lymph nodes are also present. There is circumferential masslike thickening involving the distal esophagus with paraesophageal inflammation. Emphysema with bulla of the left upper lobe and lingula. Bronchial wall thickening suggestive of bronchitis. No pneumothorax, pleural effusion or overt pulmonary edema. Mild linear scarring/atelectasis of the lung bases. There are 4 solid nodules of the left lower lobe which measure up to 4 mm (please see bookmarks). There are a few nodules of the right lower lobe measuring up to 6 mm on image 171. There are a few solid nodules of the right middle lobe measuring up to 4 mm. Central airways are patent. Unremarkable soft tissues. Degenerative changes of the spine and shoulders. Mild wedging involving a few lower thoracic vertebral segments is likely chronic. CT ABDOMEN/PELVIS: No pneumatosis or pneumoperitoneum. The spleen measures within the upper limits of normal in size and has increased in size from comparison measuring up to 12.6 cm on today's study. There are a few scattered ill-defined slightly hypodense lesions of the spleen, the largest which measures up to 1.2 cm which appears new from comparison. Unremarkable pancreas. Nodular thickening of the left greater than right adrenal gland has progressed from comparison. Unremarkable gallbladder. Hepatic steatosis. There are a few scattered hepatic cysts redemonstrated measuring up to 9 mm within the left hepatic lobe. Patency of the hepatic and portal veins. Numerous bilateral renal cysts with scattered subcentimeter hypodensities, several of which are too small to characterize. There is a 10 mm hyperdense lesion of the inferior pole left kidney with two intermediate density 9 mm lesions of the right kidney also noted. There is increased attenuation with distention of the superior pole and interpolar aspect of the right kidney. Mild urinary bladder wall thickening with partial distention. Prostamegaly. 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 Pathologic bulky retroperitoneal adenopathy with pathologic gastrohepatic and periportal lymph nodes also present. Subcarinal lymph nodes are centrally necrotic, notably a 3.5 x 2.8 cm intraperitoneal lymph node on image 149. No bowel obstruction. Mild fecal retention. Ventral abdominal wall hernia with diastases of 8.1 cm contains mesenteric fat and nonobstructed large and small bowel. Scattered small bowel air-fluid levels. Small left greater than right fat and bowel-containing inguinal hernias. The appendix is not diagnostically visualized. No acute fracture. Degenerative changes of the spine, pelvis and hips. IMPRESSION: 1. No pulmonary emboli. 2. Bulky pathologic adenopathy of the chest, abdomen and pelvis as above notably involves the mediastinum, lisette and retroperitoneum. Differential considerations include metastatic disease versus lymphoma. Oncologic follow-up is needed 3. Masslike thickening of the distal esophagus requires further evaluation with endoscopy. 4. The spleen measures within the upper limits of normal in size and demonstrates a few scattered ill-defined hypodensities which appear new from 2007. Follow-up recommended to exclude metastasis. 5. Large hyperattenuating filling defect measuring over 3 cm involving the superior pole and interpolar aspect of the right kidney is suspicious for neoplasm. Hemorrhage/debris considered less likely. 6. Bowel containing ventral abdominal wall and inguinal hernias. No bowel obstruction. 7. Scattered bilateral solid pulmonary nodules measure up to 6 mm. Follow-up is needed. 8. Small to moderate pericardial effusion. 9. Bilateral renal cysts with a few subcentimeter intermediate hyperattenuating lesions as above suggestive of hyperdense cysts versus solid lesions. Findings could be correlated with ultrasound. 10. Additionally findings as above. ACT 112: Negative or not required by law. The above report was generated using voice recognition software. It may contain grammatical, syntax or spelling errors. Electronically signed by: Silverio Kc M.D. 10/26/2020 8:27 PM Chest CTA 10/26/20 18:11 CT angio chest PE protocol, CT abd pelvis IV con only HISTORY: 75 years-old Male with PE. Acute chest and abdominal pain with weight loss TECHNIQUE: Multiple CTA images of the chest were obtained after the intravenous administration of 119 ml Optiray. Coronal and sagittal MIPS were obtained from the axial data set and were submitted for review. All measurements were obtained according to NASCET criteria. CT abdomen pelvis with IV contrast only was also obtained. A dose lowering technique was utilized adhering to the principles of ALARA. COMPARISON: CT abdomen and pelvis 04/08/2006. FINDINGS: CTA: Mild cardiomegaly. Pericardial effusion measures up to 9 mm anteriorly. Moderate coronary artery calcifications. Fusiform dilation of the ascending thoracic aorta, 4.7 x 4.7 cm. Extensive associated thoracic atherosclerosis. The descending thoracic aorta measures up to 3.5 cm at the level of the diaphragmatic hiatus. No dissection. Patency of the imaged great vessels. Unremarkable pulmonary artery. No pulmonary emboli identified. CT CHEST: Unremarkable thyroid. Bulky pathologic mediastinal and hilar adenopathy include subcarinal adenopathy measuring up to 6.9 x 3.5 cm. Pathologic periesophageal retrocrural lymph nodes are also present. There is circumferential masslike thickening involving the distal esophagus with paraesophageal inflammation. Emphysema with bulla of the left upper lobe and lingula. Bronchial wall thickening suggestive of bronchitis. No pneumothorax, pleural effusion or overt pulmonary edema. Mild linear scarring/atelectasis of the lung bases. There are 4 solid nodules of the left lower lobe which measure up to 4 mm (please see bookmarks). There are a few nodules of the right lower lobe measuring up to 6 mm on image 171. There are a few solid nodules of the right middle lobe measuring up to 4 mm. Central airways are patent. Unremarkable soft tissues. Degenerative changes of the spine and shoulders. Mild wedging involving a few lower thoracic vertebral segments is likely chronic. CT ABDOMEN/PELVIS: No pneumatosis or pneumoperitoneum. The spleen measures within the upper limits of normal in size and has increased in size from comparison measuring up to 12.6 cm on today's study. There are a few scattered ill-defined slightly hypodense lesions of the spleen, the largest which measures up to 1.2 cm which appears new from comparison. Unremarkable pancreas. Nodular thickening of the left greater than right adrenal gland has progressed from comparison. Unremarkable gallbladder. Hepatic steatosis. There are a few scattered hepatic cysts redemonstrated measuring up to 9 mm within the left hepatic lobe. Patency of the hepatic and portal veins. Numerous bilateral renal cysts with scattered subcentimeter hypodensities, several of which are too small to characterize. There is a 10 mm hyperdense lesion of the inferior pole left kidney with two intermediate density 9 mm lesions of the right kidney also noted. There is increased attenuation with distention of the superior pole and interpolar aspect of the right kidney. Mild urinary bladder wall thickening with partial distention. Prostamegaly. 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 Pathologic bulky retroperitoneal adenopathy with pathologic gastrohepatic and periportal lymph nodes also present. Subcarinal lymph nodes are centrally necrotic, notably a 3.5 x 2.8 cm intraperitoneal lymph node on image 149. No bowel obstruction. Mild fecal retention. Ventral abdominal wall hernia with diastases of 8.1 cm contains mesenteric fat and nonobstructed large and small bowel. Scattered small bowel air-fluid levels. Small left greater than right fat and bowel-containing inguinal hernias. The appendix is not diagnostically visualized. No acute fracture. Degenerative changes of the spine, pelvis and hips. IMPRESSION: 1. No pulmonary emboli. 2. Bulky pathologic adenopathy of the chest, abdomen and pelvis as above notably involves the mediastinum, lisette and retroperitoneum. Differential considerations include metastatic disease versus lymphoma. Oncologic follow-up is needed 3. Masslike thickening of the distal esophagus requires further evaluation with endoscopy. 4. The spleen measures within the upper limits of normal in size and demonstrates a few scattered ill-defined hypodensities which appear new from 2007. Follow-up recommended to exclude metastasis. 5. Large hyperattenuating filling defect measuring over 3 cm involving the superior pole and interpolar aspect of the right kidney is suspicious for neoplasm. Hemorrhage/debris considered less likely. 6. Bowel containing ventral abdominal wall and inguinal hernias. No bowel obstruction. 7. Scattered bilateral solid pulmonary nodules measure up to 6 mm. Follow-up is needed. 8. Small to moderate pericardial effusion. 9. Bilateral renal cysts with a few subcentimeter intermediate hyperattenuating lesions as above suggestive of hyperdense cysts versus solid lesions. Findings could be correlated with ultrasound. 10. Additionally findings as above. ACT 112: Negative or not required by law. The above report was generated using voice recognition software. It may contain grammatical, syntax or spelling errors. Electronically signed by: Silverio Kc M.D. 10/26/2020 8:[address] 10/26/20 18:11 CT head/brain wo con CLINICAL HISTORY: 75 years-old Male with amaurosis fugax. Acute intermittent loss of vision within the right eye TECHNIQUE: Multiple axial CT images of the head were obtained without contrast. A dose lowering technique was utilized adhering to the principles of ALARA. COMPARISON: None. FINDINGS: No acute intracranial hemorrhage, midline shift, intracranial mass, hydrocephalus, territorial ischemia or abnormal extra-axial collection. Age- related involutional changes. Mild white matter hypodensities suggestive of chronic microvascular ischemic disease. Cerebral vascular calcifications. The calvarium is intact. Trace mastoid effusions. Mild mucosal thickening of the ethmoid sinuses. Partially imaged left maxillary periapical cyst. Unremarkable soft tissues and orbits. IMPRESSION: No acute intracranial abnormality. ACT 112: Negative or not required by law. The above report was generated using voice recognition software. It may contain grammatical, syntax or spelling errors. Electronically signed by: Silverio Kc M.D. 10/26/2020 7:50 PM Head CTA 10/26/20 18:11 CT angio neck with con, CT angio head w con CLINICAL HISTORY: 75 years-old Male with amaurosis fugax. Acute loss of vision within the right thigh COMPARISON STUDY: Head CT and CTA chest of same day TECHNIQUE: Following the IV administration of 119 mL of Optiray, CT angiogram of the head and neck was performed from the aortic arch to the skull apex. Images are reviewed in the axial, sagittal, and coronal planes. 3-D MIPS images are created and assessed. IV contrast was administered without complication. All measurements were calculated based on NASCET criteria. A dose lowering technique was utilized adhering to the principles of ALARA. CT DOSE: 3226.25 mGy.cm FINDINGS: Bulky pathologic mediastinal, and bilateral supraclavicular adenopathy. Emphysema. No pneumothorax. Degenerative changes of the spine. Trace mastoid effusions. No suspicious bone lesions. Atherosclerosis of the aorta. Patency of the innominate and imaged subclavian arteries. Mild to moderate atherosclerosis of the common carotid arteries. Severe atherosclerosis of the right carotid bulb and proximal right ICA results in approximately 50% luminal narrowing. Moderate to extensive atherosclerosis of the left carotid bulb and proximal left ICA results in less than 50% stenosis. Tortuosity of the distal cervical segments. Atherosclerosis of the cavernous and supraclinoid segments without significant stenosis. Areas of mild luminal narr owing involving the right MCA. The middle and anterior cerebral arteries are otherwise patent and unremarkable. Dominant right vertebral artery. The vertebral arteries are patent and otherwise within normal limits. The basilar and posterior cerebral arteries. Cerebral venous sinuses are patent. No abnormal intracranial enhancement. IMPRESSION: 1. Severe atherosclerotic plaque of the right carotid bulb and proximal right ICA results in 50% stenosis. 2. Moderate to extensive atherosclerosis of the left carotid bulb and proximal left ICA results in less than 50% stenosis. 3. Otherwise unremarkable CTA of the head and neck. 4. Bulky pathologic mediastinal and supraclavicular adenopathy suspicious for lymphoma. ACT 112: Negative or not required by law. The above report was generated using voice recognition software. It may contain grammatical, syntax or spelling errors. Electronically signed by: Silverio Kc M.D. 10/26/2020 8:35 PM Neck CTA 10/26/20 18:11 CT angio neck with con, CT angio head w con CLINICAL HISTORY: 75 years-old Male with amaurosis fugax. Acute loss of vision within the right thigh COMPARISON STUDY: Head CT and CTA chest of same day TECHNIQUE: Following the IV administration of 119 mL of Optiray, CT angiogram of the head and neck was performed from the aortic arch to the skull apex. Images are reviewed in the axial, sagittal, and coronal planes. 3-D MIPS images are created and assessed. IV contrast was administered without complication. All measurements were calculated based on NASCET criteria. A dose lowering technique was utilized adhering to the principles of ALARA. CT DOSE: 3226.25 mGy.cm FINDINGS: Bulky pathologic mediastinal, and bilateral supraclavicular adenopathy. Emphysema. No pneumothorax. Degenerative changes of the spine. Trace mastoid effusions. No suspicious bone lesions. Atherosclerosis of the aorta. Patency of the innominate and imaged subclavian arteries. Mild to moderate atherosclerosis of the common carotid arteries. Severe atherosclerosis of the right carotid bulb and proximal right ICA results in approximately 50% luminal narrowing. Moderate to extensive atherosclerosis of the left carotid bulb and proximal left ICA results in less than 50% stenosis. Tortuosity of the distal cervical segments. Atherosclerosis of the cavernous and supraclinoid segments without significant stenosis. Areas of mild luminal narrowing involving the right MCA. The middle and anterior cerebral arteries are otherwise patent and unremarkable. Dominant right vertebral artery. The vertebral arteries are patent and otherwise within normal limits. The basilar and posterior cerebral arteries. Cerebral venous sinuses are patent. No abnormal intracranial enhancement. IMPRESSION: 1. Severe atherosclerotic plaque of the right carotid bulb and proximal right ICA results in 50% stenosis. 2. Moderate to extensive atherosclerosis of the left carotid bulb and proximal left ICA results in less than 50% stenosis. 3. Otherwise unremarkable CTA of the head and neck. 4. Bulky pathologic mediastinal and supraclavicular adenopathy suspicious for lymphoma. ACT 112: Negative or not required by law. The above report was generated using voice recognition software. It may contain grammatical, syntax or spelling errors. Electronically signed by: Silverio Kc M.D. 10/26/2020 8:35 PM Brain MRI 10/28/20 09:29 MR brain wo con HISTORY: 75 years-old Male r/o CVA . Acute strokelike symptoms COMPARISON: CT head, CTA head and neck 10/26/2020 TECHNIQUE: Multiplanar multisequence MRI of the brain was obtained without the use of IV contrast. FINDINGS: [employer] Supervisor localizer images demonstrate no gross extracranial abnormality. No restricted diffusion to suggest acute or subacute infarct. No acute intracranial hemorrhage, midline shift, abnormal extra-axial collection, hydrocephalus or intracranial mass. No pathologic blooming artifact. Age-related involutional changes with moderate T2/FLAIR hyperintensities about the white matter suggestive of chronic microvascular ischemic disease. Cerebral venous sinuses and major arterial flow voids are patent. Right greater than left mastoid effusions. Minimal mucosal thickening of the ethmoid air cells. The skull, orbits and soft tissues are unremarkable. IMPRESSION: 1. No acute intracranial abnormality. No acute or subacute infarct. 2. Age-related involutional changes with chronic microvascular ischemic disease. ACT 112: Negative or not required by law. The above report was generated using voice recognition software. It may contain grammatical, syntax or spelling errors. Electronically signed by: Silverio Kc M.D. 10/28/2020 1:46 PM Hospital Course (1) Visual disturbance: 75yo male with second episode of monocular visual disturbance. Weeks prior, patient also noticed a palpable lymph node in his right supraclavicular region. Upon ED admission patient had a CT of the head and neck which showed 50% carotid stenosis in the right Carotid and less than 50% stenosis in the left car otid. It also visualized bulky supraclavicular lymph node on the right side which led to further evaluation with CT of the chest abdomen and pelvis region.Imaging showed a lower esophageal mass, bulky pathologic adenopathy of the chest, abdomen and pelvis as above notably involves the mediastinum, lisette and retroperitoneum; as well as a pulmonary nodule. Following day visual disturbance resolved. However after further work-up the next day his visual disturbance reappeared and remained stable until discharge at which point he will be followed up in the outpatient setting, patient medically stable. Before discharge wanted to rule out CVA as potential cause of his eye disturbance. CT brain and MRI brain showed no infarct. Echo was unremarkable. -Spoke with vascular surgery who said carotid findings are marginal and patient can be discharged on xarelto and aspirin with f/u outpatient. -Spoke with Ophthalmology who said If he is medically stable on the correct prophylactic medications he can be seen in the outpatient setting this week. -Patient started on aspirin, xarelto, aspirin, statin, and metoprolol. -Counseled patient on risks of driving with monocular visual disturbance (2) Esophageal mass: -Patient was seen by GI for esophageal mass and an endoscopy was performed. 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 (3) Lymphadenopathy: -Patient was seen by general surgery for his enlarged lymph node and other lymphadenopathy found on his imaging. Surgery this patient can be discharged and biopsy will be performed this week in the outpatient setting for further evaluation. (4) A-fib: -Patient was discovered to have a bout of A. fib in the hospital which converted back to normal sinus rhythm. He will continue taking metoprolol. Also discussed with the patient the efficacy of using anticoagulation to prevent stroke. Patient agreed to starting anticoagulation. Xarelto started on the patient. (5) Hypertension: -Patient's blood pressure was high in the hospital as we held his lisinopril. Going forward patient can continue take lisinopril and metoprolol after discharge To better control his hypertension. (6) PTSD (post-traumatic stress disorder): -Patient has a history of PTSD and insomnia from being in the many years ago. First night he had trouble sleeping so 2.5 mg of Ambien nightly was prescribed. Patient stated he slept the best he has in years. Total Time Total Time Spent Total Time Spent (In Minutes): 45 Discharge Plan Discharge Items Patient Disposition: Home - Self-Care Reason For Visit: VISUAL DISTURBANCE Discharge Diagnosis: Monocular Visual Disturbance, Lymphadenopathy, Esophageal Mass, Bilateral Carotid Stenosis Activity: Per Instructions section Non-emergency contact: Primary Care Provider Call non-emergency contact if: you have any medication questions, your symptoms worsen and you have a fever Follow-up/Referrals: Perico Cabrera DO [Physician] - Piotr Landrum DO [Physician] - Ulysses Bonilla DO, FACS [Physician] - (please call to schedule follow up in clinic within 1 week) Niall Hudson DO [Physician] - Too Camara MD [Physician] - PCP,VIKKI [Primary Care Provider] - Diet: Regular Addtl Attending Provider Instructions: You came in with a second bout of a visual disturbance in one of your eyes. You read admitted to the hospital as we took several images of your head neck chest abdomen and pelvis. Although you had no signs of a cerebrovascular accident, your scans did show that some arteries in your neck had partial blockages. Images also showed enlarged lymph nodes in your neck and thoracic region along with a mass in your esophagus. We do not yet know the full extent of what is causing your visual disturbance but you should follow up with several different providers after discharge in the immediate future hopefully this next week. This includes follow-up with a GI doctor for your esophageal mass, a vascular surgeon for the blockages in your arteries in your neck, general surgery for biopsy of your enlarged lymph node, and an metrology specialist to evaluate your visual disturbance and potentially identify a cause.You should also follow-up with your primary care provider who can guide you during your care and manage your medications. Also added a few medications that you should begin to take on a daily basis for stroke prevention especially since you now have a history of A. fib.This includes a daily aspirin, Xarelto for anticoagulation, a statin, and metoprolol which will also help with your hypertension. Again your primary care provider can discussed these medications with you in more detail and adjust dosing as needed. I urge you to be extremely careful while driving since you have this recurring visual defect in one of your eyes. I recommend not driving when you have this visual defect as it could endanger yourself and others on the road. MEDICATIONS TO TAKE AT HOME: Metoprolol 25mg once a day Aspiring 81mg once a day Atorvastatin 40mg once a day Xarelto Starter Pack (Take one-15 mg tablet twice daily for 21 days, then one-20 mg tablet once daily; must take with meal/food) Lisinopril- Unsure what your dose was at home so take what you were originally. Follow up with your primary care provider for adjustment. Pending Studies at Discharge: No Stand-Alone Forms: My [facility] Medications and DC Order Prescriptions: New aspirin 81 mg Tablet,Delayed Release (Dr/Ec) 81 mg PO QAM 30 Days Qty: 30 RF: 0 metoprolol succinate 25 mg Tablet Extended Release 24 Hr 25 mg PO QAM 30 Days Qty: 30 RF: 0 atorvastatin 80 mg tablet 80 mg PO QAM 30 Days Qty: 30 RF: 0 Xarelto DVT-PE Treat 30d Start 15 mg (42)- 20 mg (9) tablets,dose pack See Rx Instructions .ROUTE .COMPLEX Qty: 51 RF: 0 Continued lisinopril 1 tab PO DAILY RF: 0 Discontinued metoprolol succinate 1 tab PO DAILY RF: 0 Discharge Orders: Discharge Order (Routine); Ordered 10/29/20 Ordered By: Fab Silver Admission Data Admit Date/Time: 10/26/20 22:20 Attending Provider: Niall Ralph Admit Provider: Ananya Neves Primary Care Provider: PCP,NO Other Providers: Ananya Neves ; Pop Lam ; Ulysses Bonilla ; Piotr Landrum V. ; [facility] ; Too Camara Other Interventions: Discharge Summary Assessment (RN) Last Done: 10/29/20 14:22 Supervising Physician Co-Signing Physician Notes Attending attestation Pt seen and examined in concert with Dr. Silver. In agreement with the documented findings as noted in the resident documentation with any exceptions or additions as noted here. Resting comfortably in bed feeling returned to baseline. Ongoing opthalmologic symptoms relatively unchanged from previous - still with vision which is dimmed in 1 eye. On Exmaination, S1/S2 nl RRR no MCG. CTAB. Abd mild distention, nontender. BS+ve. PERRLA, EOMI, CNII-XII otherwise grossly intact Visual disturbance, ongoing - MRI brain without apparent pathology, CTA head/neck shows >50% plaque of right carotid bulb, vascular surgery states nothing for intervention at present. Echo with isolated anterior effusion without tamponade. Follow up with ophthalmology this week per Dr. Hudson Paroxysmal AF - single run of asymptomatic AF without previous history of same or any sx. Continue ASA, Xarelto, metoprolol New lesion suspicious for neoplasia - GI and surg consultation - awaiting path from EGD. Follow up gen. surg. as outpatient for LN bx at oncology direction. Follow up with oncology as outpatient. Prediabetes - A1c 5.7% - will need outpatient follow up. Counseling provided re: impact of impaired fasting glucose. HTN - continue metoprolol. Else see resident documentation as noted. Total attending time spent on this case on the day of discharge: 40 minutes. Resident Activity Tracking Resident Involvement: Resident Care Provided Care Provided: Adult Hospital Medicine
[2020-10-29] MEDS: RIVAROXABAN 20 MG TAB PO SCH (16:23)
--- NOTE | 2020-11-01 08:24 | Consultation ---
Date of Consultation November 01, 2020 History of Present Illness Attending Physician: Niall Ralph MD History of Present Illness Patient was discharged before being seen Allergies Allergy/AdvReac Type Severity Reaction Status Date / Time No Known Allergies Allergy Unknown Verified 10/27/20 13:46 Home Medications Medication Instructions Recorded Confirmed Type lisinopril 1 tab PO DAILY 10/26/20 10/26/20 History aspirin 81 mg tablet,delayed 81 mg PO QAM 30 Days #30 tab 10/29/20 Rx release atorvastatin 80 mg tablet 80 mg PO QAM 30 Days #30 tab 10/29/20 Rx metoprolol succinate 25 mg 25 mg PO QAM 30 Days #30 tab 10/29/20 Rx tablet,extended release 24 hr rivaroxaban 15 mg (42)-20 mg (9) See Rx Instructions .ROUTE 10/29/20 Rx tablets in a starter pack (Xarelto .COMPLEX #51 ea DVT-PE Treat 30d Start) Patient History Medical History (Updated 10/28/20 @ 19:18 by Fab Silver DO) Abnormal CT scan, esophagus Esophageal thickening Hypertension Lymphadenopathy PTSD (post-traumatic stress disorder) Surgical History History of appendectomy History of exploratory laparotomy Family History Other Cancer Social History Smoking Status: Former smoker Second Hand Exposure: Yes (Growing up both parents smoked); Hx Alcohol Use: No Hx Substance Use: No Preferred Language: Upper Sorbian Communication Ability: Effective Maternity Nurse Required: No Beliefs That Will Affect Care: None Current Living Situation: Alone Feels Safe at Home: Yes Assistive Devices: None
== END 2020-10-29 17:58 | disposition home or self-care (01) | DRG 376 ==
LOC: ED 15:58 → SUATTDRO 22:20 → 2N 10-27

== ENCOUNTER 2020-12-29 09:20 | Inpatient (IN) ==
--- NOTE | 2020-12-29 10:11 | XRay Report ---
SINGLE VIEW CHEST CLINICAL HISTORY: Dyspnea. FINDINGS: 3 AP, portable, upright chest radiographs are compared to study dated 12/07/2020 and correla ale with chest CT dated 10/26/2020. The examination is degraded by portable technique and apical lordo tic positioning. The heart is markedly enlarged noting atherosclerotic calcification of the thoracic aorta. The pulmonary vasculature is noncongested. Emphysema and chronic interstitial thickening are s imilar to previous. There is bibasilar scarring/atelectasis. No airspace consolidation or large pleur al effusion is identified No pneumothorax is seen. The skeletal structures are osteopenic. The bony t horax is grossly intact. Advanced arthritic change is noted in the shoulders. IMPRESSION: Cardiomegaly and emphysema with no acute cardiopulmonary abnormality. ACT 112: Negative or not required by law. Electronically signed by: Kenny Puckett M.D. 12/29/2020 10:10 AM
--- NOTE | 2020-12-29 10:13 | Emergency Department Note ---
Impression & Plan Acute pericardial effusion, Hypomagnesemia, Anemia, PRECIADO (dyspnea on exertion), CATE (acute kidney injury) ED Provider Note NAME: MALACHI HOOD AGE: 75 SEX: M : 1945 ARRIVES VIA: Walk-In INFORMANT: Patient, ED PROVIDER(S): Syed Taylor DO CHIEF COMPLAINT: Shortness of breath HPI: The patient is a 75-year-old male who presented to the emergency department for an evaluation of shortness of breath. The patient states that he has a history of esophageal cancer. He was at his primary oncologist office today. He was off of his anticoagulation last week. He does have a history of atrial fibrillation. The patient states he had shortness of breath with exertion. He denies having any lower extremity swelling. He denies having any chest pain. He denies having any black or bloody bowel movements. His primary oncologist sent him to the emergency department for an evaluation. The patient states he was told he needed tested for a clot in the lungs and it would be faster if he came to the emergency department. The patient states he had ongoing symptoms for quite some time. He did have a blood transfusion for anemia secondary to chemotherapy and states that the symptoms improved at that time. The patient denies having any fever or cough. ROS: See above HPI for pertinent positives & negatives. A total of 10 systems reviewed and were otherwise negative. PAST MEDICAL HISTORY: See Below PAST SURGICAL HISTORY: See Below FAMILY HISTORY: See Below SOCIAL HISTORY: See Below HOME MEDICATIONS: See Below ALLERGIES: See Below VITALS: See Below PHYSICAL EXAMINATION: GENERAL: Patient is awake alert in no acute distress patient is resting comfortably and showing no signs of anxiety EYES: The conjunctivae are clear. The pupils are round and reactive. EARS, NOSE, MOUTH AND THROAT: The nose is without any evidence of any deformity. Mucous membranes are moist. Tongue is midline. NECK: The neck is nontender and supple. RESPIRATORY: Normal respiratory effort is noted there is no evidence of wheezing rhonchi or rales CARDIOVASCULAR: Tachycardic but regular rate was noted to auscultation. There was no murmur. GASTROINTESTINAL: The abdomen is soft. Abdomen is nontender. MUSCULOSKELETAL/EXTREMITIES: There is no evidence of gross deformity full range of motion is noted in the hips and shoulders. SKIN: Skin was warm and dry. Trace pedal edema was noted bilaterally. There is no calf tenderness. NEUROLOGIC: Patient is awake alert and oriented x3. MEDICAL DECISION MAKING: The patient is a 75-year-old male who presented to the emergency department for an evaluation of shortness of breath. The patient is currently being treated for esophageal cancer. He was sent to the emergency department by his primary oncologist for further evaluation. The patient was felt to be at risk for a pulmonary embolism because he was taking his blood thinners intermittently because of another medical condition. The patient's D-dimer is elevated. He was found to have cardiomegaly on chest x-ray. On CT this appears to be consistent with a large pericardial effusion. He was treated with IV fluids as well as IV magnesium replacement. His blood pressure was found to be stable. I discussed his case with the on-call [facility] book shelver group. They did recommend a stat echocardiogram. I also discussed his case with the on-call [facility] hospitalist. They have agreed to evaluate the patient in the emergency department for further management and disposition. Triage Nursing notes reviewed. Prior medical records reviewed Vital Signs: reviewed and remarkable for tachycardia and elevated blood pressure. Differential diagnosis: Reactive airway disease, pneumonia, pneumothorax, COPD, CHF, infections, cardiac ischemia, pulmonary embolism, musculoskeletal, gastrointestinal, as well as other pathologies. ER treatment provided: See below Diagnostics interpreted by me: ECG: [none] EKG was obtained in the emergency department. My interpretation is atrial fibrillation at 106 bpm. There was no ectopy. Diffuse nonspecific ST segment abnormalities are noted. This was compared to a tracing from October 282020. No significant changes were noted. Low voltage was noted throughout. Cardiac Monitoring: An order was placed for continuous cardiac monitoring. The monitor shows a rate of 100 bpm with sinus tachycardia rhythm. Laboratory studies: As stated above and show below. Imaging studies: See below Consultation(s): I discussed this case with Dr. Pablo who is on-call for the [facility] book shelver group. He recommends a stat echocardiogram to further evaluate the patient's condition. I discussed this case with Dr. Griffith who is on-call for the [facility] hospitalist group. Past Med/Surg History Medical History A-fib Had episode while admitted at [facility] in October 2020- per discharge summary "Patient was discovered to have a bout of A. fib in the hospital which converted back to normal sinus rhythm. He will continue taking metoprolol. Also discussed with the patient the efficacy of using anticoagulation to prevent stroke. Patient agreed to starting anticoagulation. Xarelto started on the patient." Anxiety due to SOB Anxiety due to SOB Atrial fibrillation had episode when in hospital and then put on metoprolol Carotid stenosis Right ICA 50% stenosis; left ICA <50% stenosis; seen by vascular surgery- will monitor with yearly carotid dopplers- no surgery needed at this time Chronic obstructive pulmonary disease COPD (chronic obstructive pulmonary disease) Esophageal cancer plan to start chemo Esophageal mass Newly discovered while admitted October 2020 Dx'ed with esophageal cancer- needs mediport placed for chemo GERD (gastroesophageal reflux disease) Hyperlipemia Hyperlipidemia Hypertension Hypertension Hypothyroid Hypothyroidism Lymphadenopathy PTSD (post-traumatic stress disorder) SOB (shortness of breath) on exertion SOB (shortness of breath) on exertion Visual disturbance Initial reason for admission in October 2020. Monocular visual disturbance - carotid ultrasound (50% stenosis to right ICA), ECHO (unremarkable) , CT brain and MRI of brain done- no signs of infarct Resolved prior to discharge Surgical History History of appendectomy History of exploratory laparotomy History of local excision of skin lesion cyst removed History of tonsillectomy and adenoidectomy Hx of appendectomy Hx of esophagogastroduodenoscopy Hx of esophagogastroduodenoscopy Hx of left inguinal hernia repair Hx of local excision of skin lesion cyst removed Port-A-Cath in place (12/07/20) Insertion of Access Port with Fluoroscopy; Left Subclavian Dr. 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 Beliefs That Will Affect Care: None Current Living Situation: Alone Feels Safe at Home: Yes Assistive Devices: None Allergies Allergies Allergy/AdvReac Type Severity Reaction Status Date / Time No Known Allergies Allergy Unknown Verified 12/29/20 12:42 Home Meds Home Medications Medication Instructions Recorded Confirmed ascorbic acid (vitamin C) 1,000 mg 1 g PO HS tab 11/30/20 12/29/20 tablet (Vitamin C) aspirin 81 mg tablet,delayed 81 mg PO HS 11/30/20 12/29/20 release (Adult Aspirin Regimen) atorvastatin 80 mg tablet (Lipitor) 80 mg PO HS 11/30/20 12/29/20 metoprolol succinate 25 mg 25 mg PO HS 11/30/20 12/29/20 tablet,extended release 24 hr (Toprol XL) multivitamin (Daily Multi-Vitamin) 1 tab PO HS 11/30/20 12/29/20 vitamin B complex (B-Complex) 1 tab PO HS 11/30/20 12/29/20 rivaroxaban 20 mg tablet (Xarelto) 20 mg PO HS 12/01/20 12/29/20 capecitabine 500 mg tablet (Xeloda) 2,000 mg PO BID 12/29/20 12/29/20 levothyroxine 100 mcg capsule 100 mcg PO DAILY@0300 12/29/20 12/29/20 (Tirosint) oxaliplatin 50 mg intravenous 0 mg IV Q21D 12/29/20 12/29/20 solution Previous Rx's Medication Instructions Recorded tramadol 50 mg tablet (Ultram) 50 mg PO Q4H PRN #8 tab 12/07/20 Results & Data (ED) Vital Signs Vital Signs - 24 hr 12/29/20 09:20 12/29/20 09:27 12/29/20 09:33 Temperature 36.9 C Temperature Source Temporal Artery Scan Pulse Rate 116 H Pulse Rate [Apical] Pulse Rhythm Regular Pulse Strength Normal Respiratory Rate 22 Respiratory Effort / Characteristics Non-Labored Spontaneous Respiratory Depth Normal Respiratory Pattern Regular Blood Pressure 146/95 H Blood Pressure [Right Arm] Blood Pressure Mean 112 Blood Pressure Mean [Right Arm] Blood Pressure Position Sitting Pulse Oximetry 98 Oxygen Delivery Method Nasal Cannula Room Air Nasal Cannula Oxygen Flow Rate Sepsis Recent Fever Within 48 Hours No Sepsis New/Unexplained Change in Mental Status No Sepsis Action Taken by Nursing No Action Required 12/29/20 11:20 12/29/20 13:00 Temperature Temperature Source Pulse Rate Pulse Rate [Apical] 100 H 100 H Pulse Rhythm Pulse Strength Respiratory Rate 18 20 Respiratory Effort / Characteristics Respiratory Depth Respiratory Pattern Blood Pressure Blood Pressure [Right Arm] 139/110 H 131/106 H Blood Pressure Mean Blood Pressure Mean [Right Arm] 119 114 Blood Pressure Position Pulse Oximetry Oxygen Delivery Method Nasal Cannula Nasal Cannula Oxygen Flow Rate 3 Sepsis Recent Fever Within 48 Hours Sepsis New/Unexplained Change in Mental Status Sepsis Action Taken by [facility] Medications Current Medication List: was personally reviewed by me Laboratory Data Attestation: I reviewed the patient's lab results. Result diagrams: 12/29/20 Unknown 12/29/20 Unknown Lab Results 12/29/20 12/29/20 12/29/20 Range/Units 13:39 Unknown Unknown WBC 6.90 (4.8-10.8) K/uL RBC 3.24 L (4.7-6.1) M/uL Hgb 9.7 L (14.0-18.0) g/dL Hct 29.1 L (42-52) % MCV 89.8 (80-100) fL MCH 29.9 (25-34) pg MCHC 33.3 (32-36) g/dL RDW Std Deviation 46.3 (36.4-46.3) fL RDW Coeff of Francois 16.3 H (11.5-14.5) % Plt Count 442 H (130-400) K/uL MPV 8.8 (7.4-10.4) fL Immature Gran % (Auto) 0.4 % Neut % (Auto) 81.3 % Lymph % (Auto) 9.6 % Sequoyah % (Auto) 8.7 % Eos % (Auto) 0.0 % Baso % (Auto) 0.0 % Neut # (Auto) 5.61 (1.4-6.5) K/uL Lymph # (Auto) 0.66 L (1.2-3.4) K/uL Sequoyah # (Auto) 0.60 H (0.11-0.59) K/uL Eos # (Auto) 0.00 (0-0.5) K/uL Baso # (Auto) 0.00 (0-0.2) K/uL Immature Gran # (Auto) 0.03 H (0.00-0.02) K/uL PT 14.6 H (9.0-12.0) Seconds INR 1.5 H (0.9-1.1) APTT 28.5 (21.0-31.0) Seconds PTT Ratio 1.1 D-Dimer 1830 H* (0-500) ug/L FEU Sodium (136-145) mmol/L Potassium (3.5-5.1) mmol/L Chloride (98-107) mmol/L Carbon Dioxide (21-32) mmol/L Anion Gap (3-11) BUN (7-18) mg/dl Creatinine (0.6-1.4) mg/dl Est Cr Clr Drug Dosing ml/min Est GFR ( Amer) ml/min Est GFR (Non-Af Amer) ml/min BUN/Creatinine Ratio (10-20) Glucose (70-99) mg/dl Calcium (8.5-10.1) mg/dl Magnesium (1.8-2.4) mg/dl Total Bilirubin (0.2-1) mg/dl AST (15-37) U/L ALT (12-78) U/L Alkaline Phosphatase (45-117) U/L Troponin I (0-0.045) ng/ml NT-Pro-B Natriuret Pep (0-900) pg/ml Total Protein (6.4-8.2) gm/dl Albumin (3.4-5.0) gm/dl Globulin (2.5-4.0) gm/dl Albumin/Globulin Ratio (0.9-2) COVID-19 Eval Order Covid19 at [facility] 12/29/20 Range/Units Unknown WBC (4.8-10.8) K/uL RBC (4.7-6.1) M/uL Hgb (14.0-18.0) g/dL Hct (42-52) % MCV (80-100) fL MCH (25-34) pg MCHC (32-36) g/dL RDW Std Deviation (36.4-46.3) fL RDW Coeff of Francois (11.5-14.5) % Plt Count (130-400) K/uL MPV (7.4-10.4) fL Immature Gran % (Auto) % Neut % (Auto) % Lymph % (Auto) % Sequoyah % (Auto) % Eos % (Auto) % Baso % (Auto) % Neut # (Auto) (1.4-6.5) K/uL Lymph # (Auto) (1.2-3.4) K/uL Sequoyah # (Auto) (0.11-0.59) K/uL Eos # (Auto) (0-0.5) K/uL Baso # (Auto) (0-0.2) K/uL Immature Gran # (Auto) (0.00-0.02) K/uL PT (9.0-12.0) Seconds INR (0.9-1.1) APTT (21.0-31.0) Seconds PTT Ratio D-Dimer (0-500) ug/L FEU Sodium 135 L (136-145) mmol/L Potassium 3.4 L (3.5-5.1) mmol/L Chloride 103 (98-107) mmol/L Carbon Dioxide 18 L (21-32) mmol/L Anion Gap 14.0 H (3-11) BUN 36 H (7-18) mg/dl Creatinine 1.50 H (0.6-1.4) mg/dl Est Cr Clr Drug Dosing 48.8 ml/min Est GFR ( Amer) 52.4 ml/min Est GFR (Non-Af Amer) 45.2 ml/min BUN/Creatinine Ratio 24.1 H (10-20) Glucose 228 H (70-99) mg/dl Calcium 8.5 (8.5-10.1) mg/dl Magnesium 1.7 L (1.8-2.4) mg/dl Total Bilirubin 0.8 (0.2-1) mg/dl AST 25 (15-37) U/L ALT 25 (12-78) U/L Alkaline Phosphatase 126 H (45-117) U/L Troponin I < 0.015 (0-0.045) ng/ml NT-Pro-B Natriuret Pep 938 H (0-900) pg/ml Total Protein 6.8 (6.4-8.2) gm/dl Albumin 2.6 L (3.4-5.0) gm/dl Globulin 4.2 H (2.5-4.0) gm/dl Albumin/Globulin Ratio 0.6 L (0.9-2) COVID-19 Eval Order Administered Medications Discontinued Medications Magnesium Sulfate/Dextrose (Magnesium Sulfate / D5w) 1 gm in 100 mls @ 100 mls/hr IV Q1H PIETRO Stop: 12/29/20 12:55 Last Infusion: 12/29/20 13:08 Dose: 0 mls/hr Documented by: [id number] Admin: 12/29/20 12:08 Dose: 100 mls/hr Documented by: [id number] Infusion: 12/29/20 12:08 Dose: 100 mls/hr Documented by: [id number] Admin: 12/29/20 11:25 Dose: 100 mls/hr Documented by: [id number] Sodium Chloride (Nss) 500 mls @ 999 mls/hr IV .Q31M ONE Stop: 12/29/20 13:55 Last Admin: 12/29/20 14:28 Dose: 999 mls/hr Documented by: [id number] Ioversol (Optiray 320 125ml) 119 ml IV ONCE ONE Stop: 12/29/20 13:02 Last Admin: 12/29/20 13:02 Dose: 119 ml Documented by: [id number] Imaging Data Radiologist's Impression: Chest X-Ray 12/29/20 09:33 SINGLE VIEW CHEST CLINICAL HISTORY: Dyspnea. FINDINGS: 3 AP, portable, upright chest radiographs are compared to study dated 12/07/2020 and correlated with chest CT dated 10/26/2020. The examination is degraded by portable technique and apical lordotic positioning. The heart is markedly enlarged noting atherosclerotic calcification of the thoracic aorta. The pulmonary vasculature is noncongested. Emphysema and chronic interstitial thickening are similar to previous. There is bibasilar scarring/atelectasis. No airspace consolidation or large pleural effusion is identified No pneumothorax is seen. The skeletal structures are osteopenic. The bony thorax is grossly intact. Advanced arthritic change is noted in the shoulders. IMPRESSION: Cardiomegaly and emphysema with no acute cardiopulmonary abnormality. ACT 112: Negative or not required by law. Electronically signed by: Kenny Puckett M.D. 12/29/2020 10:10 AM Chest CTA 12/29/20 10:56 CT ANGIOGRAPHY OF THE CHEST, PULMONARY EMBOLUS PROTOCOL CLINICAL HISTORY: Shortness of breath. Esophageal cancer. COMPARISON STUDY: Chest CT October 26, 2020. Chest radiograph January 08, 2021. TECHNIQUE: Following IV administration of 119 mL of Optiray, helical axial images of the chest were obtained utilizing the pulmonary embolus protocol. Maximal intensity projections and sagittal and coronal reformats were viewed on an independent 3D workstation. IV contrast was administered without complication. Automated exposure control was utilized for the study. A dose lowering technique was utilized adhering to the principles of ALARA. CT DOSE: 599.50 mGy.cm FINDINGS: No pulmonary emboli are identified. There is no thoracic aortic dissection. Note is made of a large pericardial effusion which has significantly increased in size since CT of October 26, 2020. Attenuation of the pericardial fluid is 18 Hounsfield units. There is apparent mass effect upon the free wall of the right ventricle. Extensive mediastinal bilateral hilar lymphadenopathy is present. This has decreased since prior CT. Index subcarinal lymph node measures 2.8 cm in short axis diameter. It previously measured 3.5 cm. Lymphadenopathy results in SVC narrowing which is suboptimally assessed on this exam. Small right pleural effusion is noted. There is no pneumothorax. Emphysema is noted. Interlobular septal thickening is present. There are bilateral perihilar groundglass opacities. Bronchial wall thickening is present. No suspicious lesions within the bony thorax are noted. Upper abdominal adenopathy is partially imaged on this examination. Distal esophageal wall thickening has diminished. IMPRESSION: 1. No pulmonary emboli identified. 2. Large pericardial effusion which measures above water attenuation. Mass effect upon the free wall of the right ventricle. Tamponade cannot be excluded by CT. Consultation for consideration for drainage is recommended. Findings discussed with Dr. Taylor at time of dictation. 3. Pathologic mediastinal and bilateral hilar lymphadenopathy which has decreased since prior CT. Interval decrease in distal esophageal wall thickenin g. 4. Small right pleural effusion. 5. Mild pulmonary edema. 6. Perihilar groundglass opacities. These could reflect an infectious process or pulmonary edema. ACT 112: Negative or not required by law. Electronically signed by: Tristin Templeton M.D. 12/29/2020 1:28 PM Discharge Plan Visit Data Chief Complaint: Shortness of Breath/Dyspnea Stated Complaint: REFERRED BY DOCTOR, SOB ED Provider: Syed Taylor Discharge Problem: Acute pericardial effusion, Hypomagnesemia, Anemia, PRECIADO (dyspnea on exertion), CATE (acute kidney injury) Patient Disposition: Being Evaluated by Hospitalist Forms Stand Alone Forms: My [facility] My[employer] Prescriptions Prescriptions: No Action aspirin [Adult Aspirin Regimen] 81 mg tablet,delayed release (DR/EC) 81 mg PO HS RF: 0 metoprolol succinate [Toprol XL] 25 mg tablet extended release 24 hr 25 mg PO HS RF: 0 vitamin B complex [B-Complex] Tablet 1 tab PO HS RF: 0 atorvastatin [Lipitor] 80 mg tablet 80 mg PO HS RF: 0 multivitamin [Daily Multi-Vitamin] Tablet 1 tab PO HS RF: 0 ascorbic acid (vitamin C) [Vitamin C] 1,000 mg tablet 1 g PO HS RF: 0 Xarelto 20 mg Tablet 20 mg PO HS RF: 0 tramadol [Ultram] 50 mg tablet 50 mg PO Q4H PRN (Reason: pain) Qty: 8 RF: 0 levothyroxine [Tirosint] 100 mcg Capsule 100 mcg PO DAILY@0300 RF: 0 oxaliplatin 50 mg Recon Soln 0 mg IV Q21D RF: 0 capecitabine [Xeloda] 500 mg Tablet 2,000 mg PO BID RF: 0 Referrals Referrals: PCP,NO [Physician] - Discharge Problem: Anemia Qualifiers: Anemia type: unspecified type Qualified Code(s): D64.9 - Anemia, unspecified
[2020-12-29 10:24] LABS: Hematocrit (blood only) 29.1 % (42-52); Hemoglobin 9.7 g/dL (14.0-18.0); Immature Granulocytes # (auto) 0.03 K/uL (0.00-0.02); Immature Granulocytes % (auto) 0.4 %; Lymphocytes # (auto) 0.66 K/uL (1.2-3.4); Lymphocytes % (auto) 9.6 %; Mean Corpuscular Hemoglobin 29.9 pg (25-34); Mean Corpuscular Hgb Conc 33.3 g/dL (32-36); Mean Corpuscular Volume 89.8 fL (80-100); Mean Platelet Volume 8.8 fL (7.4-10.4); Monocytes % (auto) 8.7 %; Neutrophils # (auto) 5.61 K/uL (1.4-6.5); Neutrophils % (auto) 81.3 %; Platelet Count 442 K/uL (130-400); RDW Coefficient of Variation 16.3 % (11.5-14.5); RDW Standard Deviation 46.3 fL (36.4-46.3); Red Blood Count 3.24 M/uL (4.7-6.1)
[2020-12-29 10:38] LABS: INR 1.5 (0.9-1.1); Partial Thromboplastin Ratio 1.1; Partial Thromboplastin Time 28.5 Seconds (21.0-31.0); Prothrombin Time 14.6 Seconds (9.0-12.0)
[2020-12-29 10:44] LABS: Alanine Aminotransferase 25 U/L (12-78); Albumin Level 2.6 gm/dl (3.4-5.0); Aspartate Aminotransferase 25 U/L (15-37); BUN Creatinine Ratio 24.1 (10-20); Blood Urea Nitrogen 36 mg/dl (7-18); Calcium 8.5 mg/dl (8.5-10.1); Carbon Dioxide 18 mmol/L (21-32); Chloride 103 mmol/L (98-107); Creatinine Clr Calc Pharmacy 48.8 ml/min; Est GFR (African American) 52.4 ml/min; Est GFR (Non-African American) 45.2 ml/min; Glucose 228 mg/dl (70-99); Magnesium 1.7 mg/dl (1.8-2.4); Potassium 3.4 mmol/L (3.5-5.1); Sodium 135 mmol/L (136-145)
[2020-12-29 10:49] LABS: Albumin Globulin Ratio 0.6 (0.9-2); Alkaline Phosphatase 126 U/L (45-117); Bilirubin,Total 0.8 mg/dl (0.2-1); Globulin 4.2 gm/dl (2.5-4.0); NT Pro B Type Natriuretic Pept 938 pg/ml (0-900); Total Protein 6.8 gm/dl (6.4-8.2); Troponin I < 0.015 ng/ml (0-0.045)
[2020-12-29 10:54] LABS: D Dimer 1830 ug/L FEU (0-500)
[2020-12-29] MEDS: MAGNESIUM SULFATE / D5W 1 GM/100 ML BAG IV SCH ×2 (11:25→12:08)
[2020-12-29] MEDS ORDERED: OPTIRAY 320 125ml IV ONE (13:01)
[2020-12-29] MEDS ORDERED: SODIUM CHLORIDE 0.9% 500 ML IV ONE (13:25)
--- NOTE | 2020-12-29 13:29 | CT Scan Report ---
CT ANGIOGRAPHY OF THE CHEST, PULMONARY EMBOLUS PROTOCOL CLINICAL HISTORY: Shortness of breath. Esophageal cancer. COMPARISON STUDY: Chest CT October 26, 2020. Chest radiograph January 08, 2021. TECHNIQUE: Following IV administration of 119 mL of Optiray, helical axial images of the chest were o btained utilizing the pulmonary embolus protocol. Maximal intensity projections and sagittal and cor onal reformats were viewed on an independent 3D workstation. IV contrast was administered without co mplication. Automated exposure control was utilized for the study. A dose lowering technique was ut ilized adhering to the principles of ALARA. CT DOSE: 599.50 mGy.cm FINDINGS: No pulmonary emboli are identified. There is no thoracic aortic dissection. Note is made o f a large pericardial effusion which has significantly increased in size since CT of October 26, 2020. Attenuation of the pericardial fluid is 18 Hounsfield units. There is apparent mass effect upon the free wall of the right ventricle. Extensive mediastinal bilateral hilar lymphadenopathy is present. T his has decreased since prior CT. Index subcarinal lymph node measures 2.8 cm in short axis diameter. It previously measured 3.5 cm. Lymphadenopathy results in SVC narrowing which is suboptimally assess ed on this exam. Small right pleural effusion is noted. There is no pneumothorax. Emphysema is noted. Interlobular septal thickening is present. There are bilateral perihilar groundglass opacities. Bron chial wall thickening is present. No suspicious lesions within the bony thorax are noted. Upper abdom inal adenopathy is partially imaged on this examination. Distal esophageal wall thickening has dimini shed. IMPRESSION: 1. No pulmonary emboli identified. 2. Large pericardial effusion which measures above water attenuation. Mass effect upon the free wall of the right ventricle. Tamponade cannot be excluded by CT. Consultation for consideration for draina ge is recommended. Findings discussed with Dr. Taylor at time of dictation. 3. Pathologic mediastinal and bilateral hilar lymphadenopathy which has decreased since prior CT. Int erval decrease in distal esophageal wall thickening. 4. Small right pleural effusion. 5. Mild pulmonary edema. 6. Perihilar groundglass opacities. These could reflect an infectious process or pulmonary edema. ACT 112: Negative or not required by law. Electronically signed by: Tristin Templeton M.D. 12/29/2020 1:28 PM
--- NOTE | 2020-12-29 13:57 | History & Physical Report ---
Date of Service December 29, 2020 Assessment & Plan (1) Acute pericardial effusion: Plan: TTE Cardiology consult - discussed with Dr Pablo, planning on pericardiocentesis Hold anticoagulation (last Xarelto was last night) (2) Hypomagnesemia: Plan: 2g Mg sulphate IV given in ER, repeat with AM labs (3) A-fib: Plan: Currently in sinus rhythm Restart Xarelto per cardiology recommendations (4) Hypertension: Plan: Continue on metoprolol succinate 25mg HS with hold parameters (5) CATE (acute kidney injury): Plan: Cr 1.5 from baseline 0.8. Monitor with AM labs. NSS 500ml bolus given in ER, will avoid further IV fluids overnight. (6) Esophageal mass: Plan: Will defer esophageal cancer treatment overnight. Consider restarting tomorrow if effusion gram stain negative. Plan: VTE Prophylaxis - chemical contraindicated. SCDs Diet - NPO pending pericardiocentesis Disposition - admit to PCU Admission and Anticipated Discharge Date Admission Date: December 29, 2020 History of Present Illness Chief Complaint: Shortness of breath Primary Care Provider: CHRIS GARDNER Zhen Ramirez is a 75 year old male with esophageal cancer who presents to the ER with shortness of breath. Slow increasing shortness of breath over the past two weeks. He is currently undergoing chemotherapy for esophageal cancer. He has had some hemoptysis for the last week therefore he has not been consistently taking his Xarelto although did take it last night. He saw his oncologist today and advised him to come to the ER for further workup with main concerns of anemia as he has needed prior blood transfusions or pulmonary emboli as he has not been on anticoagulation persistently No fever, chills, nasal congestion, sinus pain, chest pain, syncope, presyncope, orthopnea, PND or palpations. In the ER he underwent CT for PE which did not show a pulmonary embolism but did show a large pericardial effusion. Stat echocardiogram was not concerning for cardiac tamponade. On consultation with cardiology he will be taken to pericardiocentesis. Allergies Allergy/AdvReac Type Severity Reaction Status Date / Time No Known Allergies Allergy Unknown Verified 12/29/20 12:42 Home Medications Medication Instructions Recorded Confirmed Type ascorbic acid (vitamin C) 1,000 mg 1 g PO HS tab 11/30/20 12/29/20 History tablet (Vitamin C) aspirin 81 mg tablet,delayed 81 mg PO HS 11/30/20 12/29/20 History release (Adult Aspirin Regimen) atorvastatin 80 mg tablet (Lipitor) 80 mg PO HS 11/30/20 12/29/20 History metoprolol succinate 25 mg 25 mg PO HS 11/30/20 12/29/20 History tablet,extended release 24 hr (Toprol XL) multivitamin (Daily Multi-Vitamin) 1 tab PO HS 11/30/20 12/29/20 History vitamin B complex (B-Complex) 1 tab PO HS 11/30/20 12/29/20 History rivaroxaban 20 mg tablet (Xarelto) 20 mg PO HS 12/01/20 12/29/20 History tramadol 50 mg tablet (Ultram) 50 mg PO Q4H PRN #8 tab 12/07/20 12/29/20 Rx capecitabine 500 mg tablet (Xeloda) 2,000 mg PO BID 12/29/20 12/29/20 History levothyroxine 100 mcg capsule 100 mcg PO DAILY@0300 12/29/20 12/29/20 History (Tirosint) oxaliplatin 50 mg intravenous 0 mg IV Q21D 12/29/20 12/29/20 History solution Past Med/Surg History Medical History A-fib Had episode while admitted at [facility] in October 2020- per discharge summary "Patient was discovered to have a bout of A. fib in the hospital which converted back to normal sinus rhythm. He will continue taking metoprolol. Also discussed with the patient the efficacy of using anticoagulation to prevent stroke. Patient agreed to starting anticoagulation. Xarelto starte d on the patient." Anxiety due to SOB Anxiety due to SOB Atrial fibrillation had episode when in hospital and then put on metoprolol Carotid stenosis Right ICA 50% stenosis; left ICA <50% stenosis; seen by vascular surgery- will monitor with yearly carotid dopplers- no surgery needed at this time Chronic obstructive pulmonary disease COPD (chronic obstructive pulmonary disease) Esophageal cancer plan to start chemo Esophageal mass Newly discovered while admitted October 2020 Dx'ed with esophageal cancer- needs mediport placed for chemo GERD (gastroesophageal reflux disease) Hyperlipemia Hyperlipidemia Hypertension Hypertension Hypothyroid Hypothyroidism Lymphadenopathy PTSD (post-traumatic stress disorder) SOB (shortness of breath) on exertion SOB (shortness of breath) on exertion Visual disturbance Initial reason for admission in October 2020. Monocular visual disturbance - carotid ultrasound (50% stenosis to right ICA), ECHO (unremarkable) , CT brain and MRI of brain done- no signs of infarct Resolved prior to discharge Surgical History History of appendectomy History of exploratory laparotomy History of local excision of skin lesion cyst removed History of tonsillectomy and adenoidectomy Hx of appendectomy Hx of esophagogastroduodenoscopy Hx of esophagogastroduodenoscopy Hx of left inguinal hernia repair Hx of local excision of skin lesion cyst removed Port-A-Cath in place (12/07/20) Insertion of Access Port with Fluoroscopy; Left Subclavian Dr. Mcgee 12/07/2020 Family History Other Cancer Social History Smoking Status: Former smoker Second Hand Exposure: No; Do You Dip or Chew Tobacco: No; Tobacco Cessation Education Requested by Patient: No Hx Alcohol Use: No (quit) Hx Substance Use: No Preferred Language: Romansh Communication Ability: Effective Electron Beam Welder Required: No Beliefs That Will Affect Care: None Current Living Situation: Alone Other Information That Helps Us Care for You: No Feels Safe at Home: Yes Assistive Devices: None Review of Systems Review of Systems: All systems reviewed & are unremarkable except as noted in HPI & below Physical Exam Constitutional: WD/WN, vitals as above + frail appearing Eyes: + anicteric sclerae; normal pupil size ENMT: external ear and nose normal, oropharynx normal Neck: trachea midline, no thyromegaly Respiratory: normal respiratory effort, lungs clear to auscultation Cardiovascular: Rate/Rhythm: regular rhythm and + tachycardic Heart Sounds: no murmur Vessels: no JVD Extremities: normal capillary refill; no calf tenderness and no pedal edema Gastrointestinal (Abdomen): normal bowel sounds, soft, nontender, no hepatosplenomegaly Musculoskeletal: no cyanosis or clubbing, extremities motor strength 5/5 Skin: no rashes, warm and dry Neurologic: moves all extremities and awake; not confused Psychiatric: A+Ox3, euthymic affect Results & Data Results & Data ([facility]) Vital Signs (Past 12 Hours) Vital Signs Temp Pulse Pulse Resp BP BP Pulse Ox 12/29/20 13:00 100 H 20 131/106 H 12/29/20 11:20 100 H 18 139/110 H 12/29/20 09:27 36.9 C 116 H 22 146/95 H 98 Diagnostic Findings SINGLE VIEW CHEST CLINICAL HISTORY: Dyspnea. FINDINGS: 3 AP, portable, upright chest radiographs are compared to study dated 12/07/2020 and correlated with chest CT dated 10/26/2020. The examination is degraded by portable technique and apical lordotic positioning. The heart is markedly enlarged noting atherosclerotic calcification of the thoracic aorta. The pulmonary vasculature is noncongested. Emphysema and chronic interstitial thickening are similar to previous. There is bibasilar scarring/atelectasis. No airspace consolidation or large pleural effusion is identified No pneumothorax is seen. The skeletal structures are osteopenic. The bony thorax is grossly intact. Advanced arthritic change is noted in the shoulders. IMPRESSION: Cardiomegaly and emphysema with no acute cardiopulmonary abnormality. CT ANGIOGRAPHY OF THE CHEST, PULMONARY EMBOLUS PROTOCOL CLINICAL HISTORY: Shortness of breath. Esophageal cancer. COMPARISON STUDY: Chest CT October 26, 2020. Chest radiograph January 08, 2021. TECHNIQUE: Following IV administration of 119 mL of Optiray, helical axial images of the chest were obtained utilizing the pulmonary embolus protocol. Maximal intensity projections and sagittal and coronal reformats were viewed on an independent 3D workstation. IV contrast was administered without complication. Automated exposure control was utilized for the study. A dose lowering technique was utilized adhering to the principles of ALARA. CT DOSE: 599.50 mGy.cm FINDINGS: No pulmonary emboli are identified. There is no thoracic aortic dissection. Note is made of a large pericardial effusion which has significantly increased in size since CT of October 26, 2020. Attenuation of the pericardial fluid is 18 Hounsfield units. There is apparent mass effect upon the free wall of the right ventricle. Extensive mediastinal bilateral hilar lymphadenopathy is present. This has decreased since prior CT. Index subcarinal lymph node measures 2.8 cm in short axis diameter. It previously measured 3.5 cm. Lymphadenopathy results in SVC narrowing which is suboptimally assessed on this exam. Small right pleural effusion is noted. There is no pneumothorax. Emphysema is noted. Interlobular septal thickening is present. There are bilateral perihilar groundglass opacities. Bronchial wall thickening is present. No suspicious lesio ns within the bony thorax are noted. Upper abdominal adenopathy is partially imaged on this examination. Distal esophageal wall thickening has diminished. IMPRESSION: 1. No pulmonary emboli identified. 2. Large pericardial effusion which measures above water attenuation. Mass effect upon the free wall of the right ventricle. Tamponade cannot be excluded by CT. Consultation for consideration for drainage is recommended. Findings discussed with Dr. Taylor at time of dictation. 3. Pathologic mediastinal and bilateral hilar lymphadenopathy which has decreased since prior CT. Interval decrease in distal esophageal wall thickening. 4. Small right pleural effusion. 5. Mild pulmonary edema. 6. Perihilar groundglass opacities. These could reflect an infectious process or pulmonary edema. Medications Administered ER Medications Given: Magnesium sulphate 2g IV NSS 500 ml bolus PG Care Time/CCT Total # of Minutes Spent Total Time Spent with Patient: Total time spent is greater than 50% in coordination of care (as documented) at patient's floor/unit and/or counseling patient: Coding Level of Care Code 07124 Initial Inpt Care Lvl 3 Diagnoses Acute pericardial effusion I30.9 Hypomagnesemia E83.42 A-fib I48.91 Hypertension I10 CATE (acute kidney injury) N17.9 Esophageal mass K22.8
--- NOTE | 2020-12-29 14:41 | XCELERA ---
[id number]
--- NOTE | 2020-12-29 15:17 | Cardiology Consultation ---
Date of Consultation December 29, 2020 Assessment & Plan (1) PRECIADO (dyspnea on exertion): Patient is a 75-year-old male with a past medical history of esophageal carcinoma presenting to the ER with a chief complaint of shortness of breath. PRECIADO -CTA and echocardiogram revealed large pericardial effusion without compression of right ventricle during diastole. -Pericardial effusion likely causing, at least in part, SOB on exertion. Not tamponade-->no pulsus paradoxus, no electrical alternans, no JVD, and hemodynamically stable. Pulse Ox at 99% on RA. -Large pericardial effusion likely secondary to esophageal carcinoma. It was present on his last admission to the hospital 3 weeks ago and has grown in size. -Discussed pericardiocentesis with Dr. Khan and he agrees to go ahead with the procedure. Pericardiocentesis was discussed with patient and is in agreement with plan. Paroxysmal Atrial Fibrillation -As patient has a history of paroxysmal atrial fibrillation and is a cancer patient, continue Xarelto after pericardiocentesis is performed. -Continue beta-blockade History of Present Illness Reason for Consultation: SOB History of Present Illness Patient is a 75-year-old male with a past medical history of esophageal carcinoma presenting to the ER with a chief complaint of shortness of breath. Patient states shortness of breath has been present for the past few weeks, however, it has been at its worse for the past 2 days. He had seen his PCP earlier today who he discussed the shortness of breath with and his PCP had urged him to go to the ER for evaluation for pulmonary embolism. While in the emergency room he had a CTA performed which did not reveal any pulmonary emboli, however, there is a pericardial effusion that was present on last admission to the hospital, but it has increased in size. He states that he had received a transfusion 2 weeks ago at that time he felt great but he had progressively gotten more short of breath over the course of his 2 weeks. At that time 2 weeks ago he was able to walk 50 feet without difficulty, now he can only walk 10 feet before he becomes short of breath. Patient does have a history of COPD and did not use his inhalers this morning. Patient currently denies any chest pain, headaches, syncope, orthopnea, or nausea vomiting. Of note patient did develop atrial fibrillation at last hospitalization a couple of weeks ago and was to be on Xarelto for anticoagulation. However over the past week he had not taken it due to coughing up some blood. He did take 1 dose last night. Social history -Patient quit smoking in 2006 -Patient is a previous alcoholic but has not had an alcoholic drink in 21 years Family history -Noncontributory Allergies Allergy/AdvReac Type Severity Reaction Status Date / Time No Known Allergies Allergy Unknown Verified 12/29/20 12:42 Home Medications Medication Instructions Recorded Confirmed Type ascorbic acid (vitamin C) 1,000 mg 1 g PO HS tab 11/30/20 12/29/20 History tablet (Vitamin C) aspirin 81 mg tablet,delayed 81 mg PO HS 11/30/20 12/29/20 History release (Adult Aspirin Regimen) atorvastatin 80 mg tablet (Lipitor) 80 mg PO HS 11/30/20 12/29/20 History metoprolol succinate 25 mg 25 mg PO HS 11/30/20 12/29/20 History tablet,extended release 24 hr (Toprol XL) multivitamin (Daily Multi-Vitamin) 1 tab PO HS 11/30/20 12/29/20 History vitamin B complex (B-Complex) 1 tab PO HS 11/30/20 12/29/20 History rivaroxaban 20 mg tablet (Xarelto) 20 mg PO HS 12/01/20 12/29/20 History tramadol 50 mg tablet (Ultram) 50 mg PO Q4H PRN #8 tab 12/07/20 12/29/20 Rx capecitabine 500 mg tablet (Xeloda) 2,000 mg PO BID 12/29/20 12/29/20 History levothyroxine 100 mcg capsule 100 mcg PO DAILY@0300 12/29/20 12/29/20 History (Tirosint) oxaliplatin 50 mg intravenous 0 mg IV Q21D 12/29/20 12/29/20 History solution Patient History Medical History A-fib Had episode while admitted at [facility] in October 2020- per discharge summary "Patient was discovered to have a bout of A. fib in the hospital which converted back to normal sinus rhythm. He will continue taking metoprolol. Also discussed with the patient the efficacy of using anticoagulation to prevent stroke. Patient agreed to starting anticoagulation. Xarelto started on the patient." Anxiety due to SOB Anxiety due to SOB Atrial fibrillation had episode when in hospital and then put on metoprolol Carotid stenosis Right ICA 50% stenosis; left ICA <50% stenosis; seen by vascular surgery- will monitor with yearly carotid dopplers- no surgery needed at this time Chronic obstructive pulmonary disease COPD (chronic obstructive pulmonary disease) Esophageal cancer plan to start chemo Esophageal mass Newly discovered while admitted October 2020 Dx'ed with esophageal cancer- needs mediport placed for chemo GERD (gastroesophageal reflux disease) Hyperlipemia Hyperlipidemia Hypertension Hypertension Hypothyroid Hypothyroidism Lymphadenopathy PTSD (post-traumatic stress disorder) SOB (shortness of breath) on exertion SOB (shortness of breath) on exertion Visual disturbance Initial reason for admission in October 2020. Monocular visual disturbance - carotid ultrasound (50% stenosis to right ICA), ECHO (unremarkable) , CT brain and MRI of brain done- no signs of infarct Resolved prior to discharge Surgical History History of appendectomy History of exploratory laparotomy History of local excision of skin lesion cyst removed History of tonsillectomy and adenoidectomy Hx of appendectomy Hx of esophagogastroduodenoscopy Hx of esophagogastroduodenoscopy Hx of left inguinal hernia repair Hx of local excision of skin lesion cyst removed Port-A-Cath in place (12/07/20) Insertion of Access Port with Fluoroscopy; Left Subclavian Dr. 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: No Beliefs That Will Affect Care: None Current Living Situation: Alone Feels Safe at Home: Yes Assistive Devices: None Review of Systems Review of Systems: All systems reviewed & are unremarkable except as noted in HPI & below Physical Exam Constitutional: well developed and well nourished; no acute distress Neck: trachea midline, no thyromegaly Respiratory: normal respiratory effort, lungs clear to auscultation Cardiovascular: Rate/Rhythm: regular rhythm and + tachycardic Vessels: no JVD and no carotid bruit Extremities: no calf tenderness and no edema Distant heart sounds, no pulsus paradoxus Chest (Breasts): normal inspection/palpation of breasts Gastrointestinal (Abdomen): normal bowel sounds, soft, nontender, no hepatosplenomegaly Psychiatric: A+Ox3, euthymic affect Lymphatic: no cervical or axillary lymphadenopathy Results & Data ([facility]) Vital Signs (Past 12 Hours) Vital Signs Temp Pulse Pulse Resp BP BP Pulse Ox 12/29/20 13:00 100 H 20 131/106 H 12/29/20 11:20 100 H 18 139/110 H 12/29/20 09:27 36.9 C 116 H 22 146/95 H 98 PG Care Time/CCT Total # of Minutes Spent Total Time Spent with Patient: Total time spent is greater than 50% in coordination of care (as documented) at patient's floor/unit and/or counseling patient: Coding Level of Care Code 96582 Initial Inpt Care Lvl 3 Diagnoses PRECIADO (dyspnea on exertion) R06.00
--- NOTE | 2020-12-29 16:04 | Electrocardiogram Report ---
Test Reason : Blood Pressure : / mmHG Vent. Rate : 106 BPM Atrial Rate : 106 BPM P-R Int : 190 ms QRS Dur : 074 ms QT Int : 356 ms P-R-T Axes : 071 002 081 degrees QTc Int : 472 ms Sinus tachycardia with Premature atrial complexes Low voltage QRS Nonspecific T wave abnormality Abnormal ECG When compared with ECG of 28-OCT-2020 01:16, Sinus rhythm has replaced Atrial flutter Nonspecific T wave abnormality now evident in Lateral leads Confirmed by Syed Pablo ([id number]) on 12/29/2020 4:04:21 PM Referred By: CHRIS GARDNER Confirmed By:Syed Pablo
[2020-12-29] MEDS ORDERED: fentaNYL citrate 100 MCG/2 ML VIAL ONE (16:29)
[2020-12-29] MEDS ORDERED: ONDANSETRON INJ 2 MG/ML 2 ML VIAL ONE (16:31)
[2020-12-29] MEDS ORDERED: traMADol HCL 50 MG TABLET PO PRN (18:28)
[2020-12-29] MEDS ORDERED: ACETAMINOPHEN 325 MG TAB PO PRN (18:28)
--- NOTE | 2020-12-29 18:52 | Cardiac Catheterization ---
[facility] Data: Phthalic Acid Purifier Cardiac Status Clinical evaluation leading to the procedure CAD Presenation: Sx unlikely to be ischemic Anginal Classification: No Symptoms Heart Failure: NYHA Class: CCS III Cardiogenic Shock within 24 Hours: No Cardiac Arrest within 24 Hours: No Imaging Studies Past 6 Months: Yes Stress Studies Past 6 Months: No Diagnostic Physicians Name: Alireza Khan MD Status: Urgent Closure Device Percutaneous Entry Location: pericardium Closure Device: None-Manual Hold Recommendations: Medical Therapy and/or Counseling Intraprocedure Events Significant Disection: No Perforation: No Cardiac Cath Procedure Full Procedure Date December 29, 2020 Pre-Procedure Diagnosis Pre-Procedure Diagnosis: Cardiothoracic Symptom (Dyspnea, pericardial effusion with early tamponade) AUC Score AUC Score: 7 Post-Procedure Diagnosis Post-Procedure Diagnosis: Cardiothoracic Finding (Large pericardial effusion) Procedure(s) Performed Procedure(s) Performed: Pericardiocentesis Research Lab Assistant Alireza Khan MD Medical Management Trainer(s) Endless Track Vehicle Mechanic Estimated Blood Loss Estimated Blood Loss: -- Medication(s) Medication(s): Fentanyl and Lidocaine 1% Summary of Findings PERICARDIOCENTESIS Indication: Large pericardial effusion with early signs of tamponade on echo. Progressive dyspnea. Procedure: - Pericardial effusion visualized under ultrasound guidance - Local anesthesia with lidocaine - Pericardial space accessed via transapical approach. - Position confirmed via bubble study. Opening pericardial pressure of 10mmHg. - 6Fr pigtail catheter placed into pericardial space - Removed ~1300 ml of grossly bloody fluid. - Minimal residual fluid on echo. - Pigtail catheter removed. Summary: 1. Successful pericardiocentesis with removal of 1300 ml of grossly bloody fl uid. Recommendations: - Follow-up cell counts, cultures and cytology. - Started on colchicine - Follow-up echo in AM - If reaccumulation may need pericardial window Hemodynamics Rest Ao:: -- Final Ao: -- LV: -- Recommendations Recommendations: Medical Therapy and/or Counseling Specimens Specimens: Pericardial fluid 1300 ml bloody fluid Radiation Exposure (mGy) 52 Contrast (mls) -- Anesthesia moderate [id number] Procedural Complication(s) None Disposition PCU I attest to the content of the Intraoperative Record and any orders documented therein. Any exceptions are noted below. [facility] Card Cath Procedure Codes Therapeutic Services & Ancillary Proc Procedure 1: Cardiovascular Tx and Anc Procedures: 48916 Pericardiocentesis; initial Procedure 2: Cardiovascular Tx and Anc Procedures: 83906 Ultrasonic Guidance Pericard iocentesis Moderate Sedation Procedure 1: Sedation/Anesthesia: 18221 Mod Sedation by the same physician;Init15 Min Child Age 5 & Up Procedure 2: Sedation/Anesthesia: 84007 Mod Sedation by the same physician; Ea [id number] Minutes PG Care Time/CCT Total # of Minutes Spent Total Time Spent with Patient: Total time spent is greater than 50% in coordination of care (as documented) at patient's floor/unit and/or counseling patient:
[2020-12-29 18:54] LABS: Basophils, Fluid 0 %; Eosinophils, Fluid 0 %; Lymphocytes, Fluid 5 %; Mono,Macrophage,Mesothelial 83 %; Neutrophils, Fluid 12 %; Pericardial Fluid Appearance BLOODY; Pericardial Fluid Color RED; RBC Pericardial Fluid (A) 1571000 /uL; WBC Pericardial Fluid (A) 9223 /ul
[2020-12-29] MEDS: COLCHICINE 0.6 MG TAB PO SCH (20:46)
[2020-12-29] MEDS ORDERED: ATORVASTATIN 40 MG TAB PO SCH (21:00)
[2020-12-29] MEDS ORDERED: ASPIRIN 81 MG ECTAB PO SCH (21:00)
[2020-12-29] MEDS ORDERED: MULTIVITAMIN TAB PO SCH (21:00)
[2020-12-29] MEDS ORDERED: VITAMIN B COMPLEX TAB PO SCH (21:00)
[2020-12-29] MEDS ORDERED: METOPROLOL SUCC 25MG EXT REL TAB PO SCH (22:20)
[2020-12-30] MEDS ORDERED: LEVOTHYROXINE SODIUM 100 MCG TABLET PO SCH (06:30)
[2020-12-30 07:51] LABS: Hemoglobin 10.2 g/dL (14.0-18.0); Mean Corpuscular Hemoglobin 30.4 pg (25-34); Mean Corpuscular Volume 89.3 fL (80-100); Mean Platelet Volume 8.6 fL (7.4-10.4); Nucleated RBC # (auto) 0.08 K/uL (0-0); Nucleated RBC % (auto) 1.9 %; Platelet Count 382 K/uL (130-400); RDW Coefficient of Variation 17.5 % (11.5-14.5); RDW Standard Deviation 45.6 fL (36.4-46.3); Red Blood Count 3.36 M/uL (4.7-6.1); White Blood Count 4.17 K/uL (4.8-10.8)
[2020-12-30 07:59] LABS: BUN Creatinine Ratio 30.8 (10-20); Calcium 7.8 mg/dl (8.5-10.1); Est GFR (African American) 68.6 ml/min; Est GFR (Non-African American) 59.2 ml/min; Potassium 3.4 mmol/L (3.5-5.1)
[2020-12-30] MEDS: COLCHICINE 0.6 MG TAB PO SCH (08:07)
[2020-12-30 09:06] LABS: Anisocytosis Present; Echinocytes 1+; Polychromasia 1+
[2020-12-30 09:10] LABS: ALC (manual) 0.54 K/uL (1.2-3.4); ANC (manual) 2.69 K/uL (1.4-6.5); Blast # (manual) 0.04 K/uL (0-0); Blast Cells % (manual) 0.9 %; Lymphocytes # (manual) 0.54 K/uL (1.2-3.4); Monocytes % (manual) 21.7 %; Neutrophils # (manual) 2.69 K/uL (1.4-6.5); Neutrophils % (manual) 64.4 %
--- NOTE | 2020-12-30 12:54 | Cardiology Progress Note ---
Date of Service December 30, 2020 Assessment & Plan Admission and Anticipated Discharge Date Admission Date: December 29, 2020 Subjective He feels much better this morning. The shortness of breath has significantly improved he can lay flat without being short of breath. He denies any chest pain or chest pressure this morning denies any discomfort taking a deep breath his appetite is chronically poor he denies any orthostatic symptoms. He would like to go home if at all possible. He denies any fluttering or skips or feeling his heart racing Results & Data ([facility]) Vital Signs (Past 12 Hours) Vital Signs Temp Pulse Pulse Resp BP Pulse Ox 12/30/20 11:00 36.9 C 69 20 115/78 94 12/30/20 08:00 36.8 C 99 H 18 110/72 95 12/30/20 07:04 99 H 12/30/20 04:00 36.9 C 108 H 20 108/77 96 he is awake alert oriented x3. He denies any shortness of breath lying flat in bed HEENT: 2+ carotid upstrokes Lungs: Clear to auscultation bilaterally no rales rhonchi or wheezing Heart: Regular rate and rhythm his heart sounds were not distant there were no appreciable murmurs Abdomen: Soft nontender nondistended positive bowel sounds Extremities: Trace bilateral lower extremity edema Echocardiogram from yesterday was reviewed normal LV function (hyperdynamic) with a large pericardial effusion Cardiac catheterization yesterday: Opening pericardial pressure of 10mmHg. - 6Fr pigtail catheter placed into pericardial space - Removed ~1300 ml of grossly bloody fluid. - Minimal residual fluid on echo. - Pigtail catheter removed. IMPRESSIONS: 1. Large pericardial effusion status post pericardiocentesis of 1300 cc secondary to pretamponade physiology 2. Hyperdynamic left ventricular systolic function on echo on admission 3. Esophageal cancer awaiting to initiate chemotherapy He is currently on colchicine 0.6 mg twice daily and I would continue this. We do need a limited echocardiogram today just to make sure there is no recurrence of his effusion as well as to compare to upon outpatient follow-up. He is feeling significantly better his dyspnea is resolved as well as his orthopnea. His Gram stain is negative. His cultures are pending. In addition his pathology is currently pending. If there is no significant recurrence of his effusion from my standpoint he can be discharged home he does need to follow-up with Dr. Pablo in the office and will need an echocardiogram in approximately 2 weeks to make sure he is has not had significant reaccumulation of his pericardial fluid.
[2020-12-30] MEDS ORDERED: FAMOTIDINE 20 MG TAB PO STA (18:15)
--- NOTE | 2020-12-30 18:37 | Discharge Summary ---
Date of Service December 30, 2020 Admission HPI Per Admitting Provider Zhen Ramirez is a 75 year old male with esophageal cancer who presents to the ER with shortness of breath. Slow increasing shortness of breath over the past two weeks. He is currently undergoing chemotherapy for esophageal cancer. He has had some hemoptysis for the last week therefore he has not been consistently taking his Xarelto although did take it last night. He saw his oncologist today and advised him to come to the ER for further workup with main concerns of anemia as he has needed prior blood transfusions or pulmonary emboli as he has not been on anticoagulation persistently No fever, chills, nasal congestion, sinus pain, chest pain, syncope, presyncope, orthopnea, PND or palpations. In the ER he underwent CT for PE which did not show a pulmonary embolism but did show a large pericardial effusion. Stat echocardiogram was not concerning for cardiac tamponade. On consultation with cardiology he will be taken to pericardiocentesis. Admission Exam Per Admitting Provider Constitutional: WD/WN, vitals as above + frail appearing Eyes: + anicteric sclerae; normal pupil size ENMT: external ear and nose normal, oropharynx normal Neck: trachea midline, no thyromegaly Respiratory: normal respiratory effort, lungs clear to auscultation Cardiovascular: Rate/Rhythm: regular rhythm and + tachycardic Heart Sounds: no murmur Vessels: no JVD Extremities: normal capillary refill; no calf tenderness and no pedal edema Gastrointestinal (Abdomen): normal bowel sounds, soft, nontender, no hepatosplenomegaly Musculoskeletal: no cyanosis or clubbing, extremities motor strength 5/5 Skin: no rashes, warm and dry Neurologic: moves all extremities and awake; not confused Psychiatric: A+Ox3, euthymic affect Principal Diagnosis Pericardial Effusion Discharge Exam General: A&Ox3. NAD. Cooperative. HEENT: Atraumatic, normocephalic. Pulm: CTAB A&P. -wheezes, -rales, -rhonchi. Symmetrical chest rise. No increase work of breathing. No respiratory distress. Cardiac: RRR, -mrg. Radial pulses intact and symmetrical. Abdominal: Nontender, nondistended, soft. BS present. Discharge Data Allergies Allergy/AdvReac Type Severity Reaction Status Date / Time No Known Allergies Allergy Unknown Verified 12/29/20 12:42 Consultations 12/29/20 13:38 Consult Cardiology Stat ED Decision to Admit Stat Procedures Performed Operation Date: 12/29/20 15:45 Actual Procedures p Pericardiocentesis - Niall Khan MD Ordered Studies 12/29/20 10:56 CT angio chest PE protocol Stat 12/29/20 15:23 CL Cath Imgs for PACS use only Stat Hospital Course (1) Acute pericardial effusion: Zhen is a 75-year-old male with a past medical history of esophageal cancer who presented with worsening shortness of breath and he was found to have a large pericardial effusion with concern for early tamponade. He was treated with pericardiocentesis and clinically improved. To do as outpatient: 1. Follow-up with Dr. Landrum, oncology 2. Follow-up with cardiology in approximately 2 weeks, repeat TTE 3. Follow-up on pericardiocentesis fluid analysis/micro final results Acute pericardial effusion causing shortness of breath CT-C: No pulmonary emboli identified. Large pericardial effusion which measures above water attenuation. Mass effect upon the free wall of the right ventricle. Tamponade cannot be excluded by CT. Consultation for consideration for drainage is recommended. Findings discussed with Dr. Taylor at time of dictation. Pathologic mediastinal and bilateral hilar lymphadenopathy which has decreased since prior CT. Interval decrease in distal esophageal wall thickening. Small right pleural effusion. Mild pulmonary edema. Perihilar groundglass opacities. These could reflect an infectious process or pulmonary edema. TTE: Hyperdynamic left ventricle, large pericardial effusion, no diastolic compression of the right ventricle Pericardiocentesis was performed 12/29. 6 [place] pigtail catheter placed into pericardial space, 1300 cc of grossly bloody fluid was removed and pigtail catheter was removed without complication. Patient symptoms resolved with above treatment Repeat TTE was performed on day of discharge, results not available in [employer] but were discussed with reading administrative asst Dr. Enrique. Minimal fluid re accumulation, Gunn of area with possible clot. Appeared stable, okay for discharge per cardiology. Discharged on colchicine twice daily with follow-up to cardiology (2) Hypomagnesemia: Repleted (3) A-fib: Remains in sinus rhythm Xarelto resumed, briefly held for procedure as above (4) Hypertension: Continue on metoprolol succinate 25mg HS with hold parameters (5) CATE (acute kidney injury): Cr 1.5 from baseline 0.8. Normalized with fluids (6) Esophageal mass: Patient to follow-up on Tuesday 01/[address] Landrum for further No acute management while inpatient No signs of infectious etiology on initial fluid analysis, full analysis pending at discharge VTE Prophylaxis - chemical contraindicated. SCDs Total Time Total Time Spent Total Time Spent (In Minutes): 55 minutes spend on day of discharge including direct care, review or labs and images, and documentation Discharge Plan Discharge Items Patient Disposition: Home - Self-Care Reason For Visit: PERICARDIAL EFFUSION Discharge Diagnosis: Pericardial Effusion Activity: Resume your previous activity Non-emergency contact: Primary Care Provider and [employer] Shift Manager Call non-emergency contact if: you have any medication questions Follow-up/Referrals: Syed Pablo MD [Physician] - PCP,VIKKI [Physician] - Diet: Heart Healthy Addtl Attending Provider Instructions: You were seen in the hospital for shortness of breath and were found to have a pericardial effusion. This was drained using a needle using a procedure called pericardial effusion which was causing restriction around your heart. Your symptoms improved following this procedure. You have been prescribed an anti-inflammatory, colchicine. Please take cochicine 0.6mg twice daily. Please discuss with your administrative asst when to stop taking this medication at your followup appointment. A followup appointment is being scheduled for you with Cardiology. You should be seen in 2 weeks. You should receive a call to confirm this appointment. If you do not receive a call within 48 hours to confirm this appointment, or need to change this appointment, please call the provider's office at [phone]. If your shortness of breath returns/worsens please call 911 for reevaluation in the emergency department. If you develop any new or worsening symptoms including fever, chills, sweats, chest pain, chest pressure, difficulty breathing, uncontrolled nausea/vomiting, rash, wheezing, passing out or nearly passing out, bleeding, black/bloody bowel movements, or other new or concerning symptoms please call your primary care physician at the [place], or call 911 for re-evaluation in the emergency department if you are very concerned. The fluid analysis did not show any preliminary infection of the fluid drained from around your heart. The final cultures and analysis will take several days to complete, please ask your administrative asst or primary care physician to followup on the final results of these tests. Pending Studies at Discharge: Yes (pericardial effusion fluid analysis) Stand-Alone Forms: [facility] [place], Smoking Cessation Medications and DC Order Prescriptions: New colchicine [Colcrys] 0.6 mg Tablet 0.6 mg PO BID 30 Days Qty: 60 RF: 0 Continued aspirin [Adult Aspirin Regimen] 81 mg tablet,delayed release (DR/EC) 81 mg PO HS RF: 0 metoprolol succinate [Toprol XL] 25 mg tablet extended release 24 hr 25 mg PO HS RF: 0 vitamin B complex [B-Complex] Tablet 1 tab PO HS RF: 0 atorvastatin [Lipitor] 80 mg tablet 80 mg PO HS RF: 0 multivitamin [Daily Multi-Vitamin] Tablet 1 tab PO HS RF: 0 ascorbic acid (vitamin C) [Vitamin C] 1,000 mg tablet 1 g PO HS RF: 0 Xarelto 20 mg Tablet 20 mg PO HS RF: 0 tramadol [Ultram] 50 mg tablet 50 mg PO Q4H PRN (Reason: pain) Qty: 8 RF: 0 levothyroxine [Tirosint] 100 mcg Capsule 100 mcg PO DAILY@0300 RF: 0 oxaliplatin 50 mg Recon Soln 0 mg IV Q21D RF: 0 capecitabine [Xeloda] 500 mg Tablet 2,000 mg PO BID RF: 0 Discharge Orders: Discharge Order (Routine); Ordered 12/30/20 Ordered By: Asaf Khan Admission Data Admit Date/Time: 12/29/20 16:18 Attending Provider: Asaf Khan Admit Provider: Gm Griffith Primary Care Provider: [facility] Other Providers: Syed Pablo ; Gm Griffith Coding Level of Care Code D/C DAY MANAGEMENT >30 MINS Diagnoses Acute pericardial effusion I30.9 Hypomagnesemia E83.42 A-fib I48.91 Hypertension I10 CATE (acute kidney injury) N17.9 Esophageal mass K22.8
--- NOTE | 2021-01-06 15:23 | Coding Query ---
PATHOLOGY To promote full compliance with coding requirements relating to patient care, physician participation is requested in all cases of thermodynamic physicist uncertainty. Please assist us with the question(s) below: Please review the Pathology report and please document any relevant diagnosis(es) below: Diagnosis(es): Metastatic Adenocarcinoma Thank you for your time, OSCAR Lyon, [facility]
== END 2020-12-30 19:22 | disposition home or self-care (01) | DRG 315 ==
LOC: ED 09:20 → ASU 16:17 → SUATTDRO 16:18 → 2S 16:18
DX: E83.42 Hypomagnesemia; Z20.822 Contact with and (suspected) exposure to COVID-19; R59.0 Localized enlarged lymph nodes; C79.9 Secondary malignant neoplasm of unspecified site; D64.81 Anemia due to antineoplastic chemotherapy; N17.9 Acute kidney failure, unspecified; Z87.891 Personal history of nicotine dependence; Z79.899 Other long term (current) drug therapy; J44.9 Chronic obstructive pulmonary disease, unspecified; R06.00 Dyspnea, unspecified; F10.21 Alcohol dependence, in remission; Z79.82 Long term (current) use of aspirin; Z79.890 Hormone replacement therapy; I30.9 Acute pericarditis, unspecified; I10 Essential (primary) hypertension; C15.9 Malignant neoplasm of esophagus, unspecified; Z79.01 Long term (current) use of anticoagulants; T45.1X5A Adverse effect of antineoplastic and immunosuppressive drugs, initial encounter; I48.0 Paroxysmal atrial fibrillation

== ENCOUNTER 2020-12-31 15:08 | Inpatient (IN) ==
[2020-12-31 15:44] LABS: Hematocrit (blood only) 31.5 % (42-52); Hemoglobin 10.5 g/dL (14.0-18.0); Mean Corpuscular Hemoglobin 29.9 pg (25-34); Mean Corpuscular Hgb Conc 33.3 g/dL (32-36); Mean Corpuscular Volume 89.7 fL (80-100); Mean Platelet Volume 8.8 fL (7.4-10.4); Nucleated RBC # (auto) 0.16 K/uL (0-0); Nucleated RBC % (auto) 1.9 %; Platelet Count 442 K/uL (130-400); RDW Coefficient of Variation 17.6 % (11.5-14.5); Red Blood Count 3.51 M/uL (4.7-6.1); White Blood Count 8.29 K/uL (4.8-10.8)
--- NOTE | 2020-12-31 15:49 | XRay Report ---
XR chest 1V portable CLINICAL HISTORY: Chest Pain COMPARISON STUDY: Chest radiograph and chest CT December 29, 2020. FINDINGS: Left subclavian [id number] is in place. There is no pneumothorax or pleural effusion. Mi nimal bibasilar opacities favor atelectasis. Enlargement of the cardiac silhouette is noted. This has decreased since exam of December 29, 2020. IMPRESSION: Enlargement of the cardiac silhouette, decreased since prior chest radiograph of December 29, 2020. Th is may reflect decrease in size of the pericardial effusion. ACT 112: Negative or not required by law. Electronically signed by: Tristin Templeton M.D. 12/31/2020 3:48 PM
[2020-12-31] MEDS ORDERED: HEPARIN (PORCINE) 1000 UNIT/ML 10 ML (CATH LAB USE ONLY) ONE (15:54)
[2020-12-31] MEDS ORDERED: fentaNYL citrate 100 MCG/2 ML VIAL ONE (15:54)
[2020-12-31] MEDS ORDERED: niCARdipine HCL INJ 2.5 MG/ML 10 ML AMP ONE (15:54)
[2020-12-31 15:55] LABS: INR 1.6 (0.9-1.1); Partial Thromboplastin Ratio 1.1; Partial Thromboplastin Time 28.1 Seconds (21.0-31.0); Prothrombin Time 15.5 Seconds (9.0-12.0)
[2020-12-31] MEDS ORDERED: MIDAZOLAM HCL 1 MG/ML 2ML VIAL ONE (15:55)
[2020-12-31] MEDS ORDERED: NITROGLYCERIN/D5W 100MCG/ML 20ML SYR ONE (15:55)
[2020-12-31] MEDS ORDERED: SODIUM CHLORIDE 0.9% 1000ML 1,000 ML IV SCH ×2 (16:00→19:15)
[2020-12-31 16:02] LABS: Alanine Aminotransferase 27 U/L (12-78); Aspartate Aminotransferase 23 U/L (15-37); BUN Creatinine Ratio 24.3 (10-20); Bilirubin Direct 0.4 mg/dl (0-0.2); Blood Urea Nitrogen 47 mg/dl (7-18); Carbon Dioxide 15 mmol/L (21-32); Chloride 98 mmol/L (98-107); Est GFR (African American) 38.2 ml/min; Est GFR (Non-African American) 32.9 ml/min; Glucose 168 mg/dl (70-99); Lipase 97 U/L (73-393); Magnesium 2.2 mg/dl (1.8-2.4); Potassium 3.3 mmol/L (3.5-5.1); Sodium 130 mmol/L (136-145)
[2020-12-31 16:05] LABS: Albumin Globulin Ratio 0.5 (0.9-2); Alkaline Phosphatase 116 U/L (45-117); Bilirubin,Total 0.8 mg/dl (0.2-1); NT Pro B Type Natriuretic Pept 7781 pg/ml (0-900); Phosphorus 4.2 mg/dl (2.5-4.9); Troponin I < 0.015 ng/ml (0-0.045)
--- NOTE | 2020-12-31 16:18 | Emergency Department Note ---
Impression & Plan Cardiac tamponade, Hypotension, Esophageal cancer, CATE (acute kidney injury), Atrial flutter with rapid ventricular response ED Provider Note NAME: MALACHI HOOD AGE: 75 SEX: M ARRIVES VIA: Ambulance INFORMANT: Patient, ED PROVIDER(S): Juan Ramon Mills MD CHIEF COMPLAINT: SOB PLAN: Disposition: Admit MEDICAL DECISION MAKING: The patient is a pleasant 75 gentleman with a past medical history of atrial fibrillation on Xarelto, history of esophageal cancer undergoing chemotherapy who presents emergency department for acute onset shortness of breath since this morning in the setting of being discharged yesterday after an admission where he was diagnosed with a large pericardial effusion status post drainage which the pigtail of 1300 cc of bloody fluid with repeat echo showing no significant reaccumulation. The patient reports he did not take his Xarelto since discharge but did take his aspirin. He reports he was feeling fine yesterday upon his discharge but his symptoms began acutely this morning and persisted into the afternoon. On arrival the patient ill-appearing, in acute respiratory distress with heart rate in the 150s and hypotensive with blood pressure 60s/20s on manual check. EKG demonstrates atrial flutter with RVR in the 150s with ST abnormalities with no overt ST elevation. The patient was mentating normally throughout his time in the emergency department. Lungs are relatively clear. I did perform a limited bedside cardiac ultrasound which showed reaccumulation of the patient's large pericardial effusion again demonstrating a circumferential pericardial effusion with concern for cardiac tamponade on limited images as well as the patient's clinical presentation of tachycardia, distant heart sounds, hypotension, JVD. Heart alert was activated for cath lack activation to place pericardial drain. I did review the case with interventional cardiology on-call, Dr. Armijo, who evaluated the patient at the bedside. Appreciate assistance. Heart rate was somewhat responsive to IV fluid bolus 1L NSS with pressure bag but no significant improvement in blood pressure. Patient was taken to emergency to the [facility] for pericardial drain. Case was discussed [place]. Griffith, [facility] [place], who will admit the patient following pericardial drain. Chest x-ray demonstrates cardiomegaly which was somewhat improved from prior (pre first pericardial effusion drainage), no focal infiltrates with minimal bibasilar opacities favor atelectasis. WBC within normal limits. H/H similar to prior values. Platelets 442K, nonspecific. INR 1.6 similar to prior value in setting of previously being on Xarelto. Creatinine 1.95 increased from discharge of 1.2. Chemistry with anion gap of 17 and bicarb of 15. LFTs without significant abnormality. Troponin negative/undetectable. BNP is elevated at 7700 in the setting of acute reaccumulation of pericardial effusion and cardiac tamponade. Triage Nursing notes reviewed and agree them. Prior medical records reviewed Vital Signs: reviewed and remarkable for tachycardia/hypotension. Differential diagnosis: Reactive airway disease, pneumonia, pneumothorax, COPD, CHF, infections, cardiac ischemia, pulmonary embolism, musculoskeletal, gastrointestinal, as well as other pathologies. ER treatment provided: See below. Diagnostics interpreted by me: ECG: Atrial flutter, 157 bpm, nonspecific ST abnormality, no overt ST elevation, QTC 491, QRS 66. Cardiac Monitoring: An order for continuous cardiac monitoring was placed and demonstrated Atrial flutter, 157 bpm, no ectopy. Laboratory studies: See below Imaging studies: See below Consultation(s): Dr. Armijo, Interventional cardiology on-call. Dr. Griffith, [facility] [place]. HPI: The patient is a pleasant 75 gentleman with a past medical history of atrial fibrillation on Xarelto, history of esophageal cancer undergoing chemoth erapy who presents emergency department for acute onset shortness of breath since this morning in the setting of being discharged yesterday after an admission where he was diagnosed with a large pericardial effusion status post drainage which the pigtail of 1300 cc of bloody fluid with repeat echo showing no significant reaccumulation. The patient reports he did not take his Xarelto since discharge but did take his aspirin. He reports he was feeling fine yesterday upon his discharge but his symptoms began acutely this morning and persisted into the afternoon. ROS: See above HPI for pertinent positives & negatives. A total of 10 systems reviewed and were otherwise negative. PAST MEDICAL HISTORY:See Below PAST SURGICAL HISTORY:See Below FAMILY HISTORY:See Below SOCIAL HISTORY:See Below HOME MEDICATIONS:See Below ALLERGIES:See Below VITALS:See Below PHYSICAL EXAMINATION: GENERAL: Awake, alert, ill-appearing, in no distress HENT: Normocephalic, atraumatic. Oropharynx with dry mucous membranes. EYES: Normal conjunctiva. Sclera non-icteric. NECK: Supple. No nuchal rigidity. FROM. JVD. RESPIRATORY: Clear to auscultation. Tachypneic. CARDIAC: Tachycardic rate, normal rhythm. Extremities warm and well perfused. Pulses equal. ABDOMEN: Soft, non-distended. No tenderness to palpation. No rebound or guarding. No masses. RECTAL: Deferred. MUSCULOSKELETAL: Chest examination reveals no tenderness. The back is symmetrical on inspection without obvious abnormality. There is no CVA tenderness to palpation. No joint edema. LOWER EXTREMITIES: Calves are equal size bilaterally and non-tender. 1+ BLE edema. No discoloration. NEURO: No focal sensory or motor deficits noted. SKIN: Cool, ashen. No rash or jaundice noted. ED COURSE: Limited Point of Care Cardiac Ultrasound performed by me: Indication: Tachycardia/hypotension. Findings: Limited echocardiography revealed large circumferential pericardial effusion. Limited/poor quality views. Concern for cardiac tamponade. Impression: Large pericardial effusion. Cardiac tamponade. Critical Care: I have personally spent greater than 55 minutes of critical care time in the direct management of this patient. This includes bedside care, interpretation of diagnostic studies, and testing, discussion with consultants, patient, and family members, and other required patient management activities. This 55 minutes is in excess of all separately billable procedures. Juan Ramon Mills MD Past Med/Surg History Medical History A-fib Had episode while admitted at [facility] in October 2020- per discharge summary "Patient was discovered to have a bout of A. fib in the hospital which converted back to normal sinus rhythm. He will continue taking metoprolol. Also discussed with the patient the efficacy of using anticoagulation to prevent stroke. Patient agreed to starting anticoagulation. Xarelto started on the patient." CATE (acute kidney injury) Anxiety due to SOB Anxiety due to SOB Atrial fibrillation had episode when in hospital and then put on metoprolol Carotid stenosis Right ICA 50% stenosis; left ICA <50% stenosis; seen by vascular surgery- will monitor with yearly carotid dopplers- no surgery needed at this time Chronic obstructive pulmonary disease COPD (chronic obstructive pulmonary disease) Esophageal cancer plan to start chemo Esophageal mass Newly discovered while admitted October 2020 Dx'ed with esophageal cancer- needs mediport placed for chemo GERD (gastroesophageal reflux disease) Hyperlipemia Hyperlipidemia Hypertension Hypertension Hypothyroid Hypothyroidism Lymphadenopathy PTSD (post-traumatic stress disorder) SOB (shortness of breath) on exertion SOB (shortness of breath) on exertion Visual disturbance Initial reason for admission in October 2020. Monocular visual disturbance - carotid ultrasound (50% stenosis to right ICA), ECHO (unremarkable) , CT brain and MRI of brain done- no signs of infarct Resolved prior to discharge Surgical History History of appendectomy History of exploratory laparotomy History of local excision of skin lesion cyst removed History of tonsillectomy and adenoidectomy Hx of appendectomy Hx of esophagogastroduodenoscopy Hx of esophagogastroduodenoscopy Hx of left inguinal hernia repair Hx of local excision of skin lesion cyst removed Port-A-Cath in place (12/07/20) Insertion of Access Port with Fluoroscopy; Left Subclavian Dr. Mcgee 12/07/2020 Family History Other Cancer Social History Smoking Status: Former smoker Second Hand Exposure: No; Do You Dip or Chew Tobacco: No; Hx Alcohol Use: No Hx Substance Use: No Preferred Language: Upper Sorbian Communication Ability: Effective Knitter Machine Required: No Beliefs That Will Affect Care: None Current Living Situation: Alone Feels Safe at Home: Yes Safety Concerns: Feels Safe At This Time Assistive Devices: Oxygen - Continuous Allergies Allergies Allergy/AdvReac Type Severity Reaction Status Date / Time No Known Allergies Allergy Unknown Verified 12/31/20 16:09 Home Meds Home Medications Medication Instructions Recorded Confirmed ascorbic acid (vitamin C) 1,000 mg 1 g PO HS tab 11/30/20 12/31/20 tablet (Vitamin C) aspirin 81 mg tablet,delayed 81 mg PO HS 11/30/20 12/31/20 release (Adult Aspirin Regimen) atorvastatin 80 mg tablet (Lipitor) 80 mg PO HS 11/30/20 12/31/20 metoprolol succinate 25 mg 25 mg PO HS 11/30/20 12/31/20 tablet,extended release 24 hr (Toprol XL) multivitamin (Daily Multi-Vitamin) 1 tab PO HS 11/30/20 12/31/20 vitamin B complex (B-Complex) 1 tab PO HS 11/30/20 12/31/20 rivaroxaban 20 mg tablet (Xarelto) 20 mg PO HS 12/01/20 12/31/20 capecitabine 500 mg tablet (Xeloda) 2,000 mg PO BID 12/29/20 12/31/20 levothyroxine 100 mcg capsule 100 mcg PO DAILY@0300 12/29/20 12/31/20 (Tirosint) oxaliplatin 50 mg intravenous 0 mg IV Q21D 12/29/20 12/31/20 solution Previous Rx's Medication Instructions Recorded tramadol 50 mg tablet (Ultram) 50 mg PO Q4H PRN #8 tab 12/07/20 colchicine 0.6 mg tablet (Colcrys) 0.6 mg PO BID 30 Days #60 tab 12/30/20 Results & Data (ED) Vital Signs Vital Signs - 24 hr 12/31/20 15:08 12/31/20 15:21 12/31/20 15:25 Temperature 36.4 C L Temperature Source Oral Pulse Rate 157 H 157 H 157 H Pulse Rate [Apical] Pulse Rate from SpO2 Sensor Respiratory Rate 30 H 29 H 26 H Respiratory Effort / Characteristics Short of Breath Respiratory Depth Deep Respiratory Pattern Tachypnea Blood Pressure 60/40 L Blood Pressure [Right Arm] Blood Pressure Mean 46 Blood Pressure Mean [Right Arm] Blood Pressure Position Lying Pulse Oximetry 74 L Oxygen Delivery Method Non-rebreather Oxygen Flow Rate 15 Sepsis Recent Fever Within 48 Hours No Sepsis New/Unexplained Change in Mental Status No Sepsis Action Taken by Nursing No Action Required 12/31/20 15:30 12/31/20 15:37 12/31/20 15:40 Temperature Temperature Source Pulse Rate 157 H 156 H 156 H Pulse Rate [Apical] Pulse Rate from SpO2 Sensor 158 H Respiratory Rate 33 H 22 33 H Respiratory Effort / Characteristics Respiratory Depth Respiratory Pattern Blood Pressure Blood Pressure [Right Arm] Blood Pressure Mean Blood Pressure Mean [Right Arm] Blood Pressure Position Pulse Oximetry Oxygen Delivery Method Oxygen Flow Rate Sepsis Recent Fever Within 48 Hours Sepsis New/Unexplained Change in Mental Status Sepsis Action Taken by Nursing 12/31/20 15:45 12/31/20 15:47 12/31/20 15:50 Temperature Temperature Source Pulse Rate 154 H 155 H Pulse Rate [Apical] 156 H Pulse Rate from SpO2 Sensor Respiratory Rate 29 H 30 H 31 H Respiratory Effort / Characteristics Respiratory Depth Respiratory Pattern Blood Pressure Blood Pressure [Right Arm] 62/30 L Blood Pressure Mean Blood Pressure Mean [Right Arm] 40 Blood Pressure Position Pulse Oximetry Oxygen Delivery Method Oxygen Flow Rate Sepsis Recent Fever Within 48 Hours Sepsis New/Unexplained Change in Mental Status Sepsis Action Taken by Nursing 12/31/20 15:55 12/31/20 16:00 12/31/20 16:05 Temperature Temperature Source Pulse Rate 131 H 155 H Pulse Rate [Apical] Pulse Rate from SpO2 Sensor Respiratory Rate 32 H 24 Respiratory Effort / Characteristics Respiratory Depth Respiratory Pattern Blood Pressure Blood Pressure [Right Arm] 60/20 L Blood Pressure Mean Blood Pressure Mean [Right Arm] 33 Blood Pressure Position Pulse Oximetry Oxygen Delivery Method Oxygen Flow Rate Sepsis Recent Fever Within 48 Hours Sepsis New/Unexplained Change in Mental Status Sepsis Action Taken by Nursing Laboratory Data Attestation: I reviewed the patient's lab results. Result diagrams: 12/31/20 15:35 12/31/20 15:35 Lab Results 12/31/20 12/31/20 12/31/20 Range/Units 15:35 15:35 15:35 WBC 8.29 (4.8-10.8) K/uL RBC 3.51 L (4.7-6.1) M/uL Hgb 10.5 L (14.0-18.0) g/dL Hct 31.5 L (42-52) % MCV 89.7 (80-100) fL MCH 29.9 (25-34) pg MCHC 33.3 (32-36) g/dL RDW Std Deviation 48.0 H (36.4-46.3) fL RDW Coeff of Francois 17.6 H (11.5-14.5) % Plt Count 442 H (130-400) K/uL MPV 8.8 (7.4-10.4) fL Absolute Nucleated RBC 0.16 H (0-0) K/uL Nucleated RBC % (auto) 1.9 % Neutrophils % (Manual) 79.7 % Lymphocytes % (Manual) 11.9 % Monocytes % (Manual) 6.8 % Metamyelocytes % (Man) 0.8 % Myelocytes % (Man) 0.8 % Neutrophils # (Manual) 6.61 H (1.4-6.5) K/uL Total Absolute Neuts 6.61 H (1.4-6.5) K/uL Lymphocytes # (Manual) 0.99 L (1.2-3.4) K/uL Total Abs Lymphocytes 0.99 L (1.2-3.4) K/uL Monocytes # (Manual) 0.56 (0.11-0.59) K/uL Metamyelocytes # (Man) 0.07 H (0-0) K/uL Myelocytes # (Manual) 0.07 H (0-0) K/uL Toxic Granulation 3+ Toxic Vacuolation 1+ Dohle Bodies 2+ Anisocytosis Present Echinocytes 1+ PT 15.5 H (9.0-12.0) Seconds INR 1.6 H (0.9-1.1) APTT 28.1 (21.0-31.0) Seconds PTT Ratio 1.1 Sodium 130 L (136-145) mmol/L Potassium 3.3 L (3.5-5.1) mmol/L Chloride 98 (98-107) mmol/L Carbon Dioxide 15 L (21-32) mmol/L Anion Gap 17.0 H (3-11) BUN 47 H (7-18) mg/dl Creatinine 1.95 H D (0.6-1.4) mg/dl Est Cr Clr Drug Dosing Not Reportable Est GFR ( Amer) 38.2 ml/min Est GFR (Non-Af Amer) 32.9 ml/min BUN/Creatinine Ratio 24.3 H (10-20) Glucose 168 H (70-99) mg/dl Calcium 8.0 L (8.5-10.1) mg/dl Phosphorus 4.2 (2.5-4.9) mg/dl Magnesium 2.2 (1.8-2.4) mg/dl Total Bilirubin 0.8 (0.2-1) mg/dl Direct Bilirubin 0.4 H (0-0.2) mg/dl AST 23 (15-37) U/L ALT 27 (12-78) U/L Alkaline Phosphatase 116 (45-117) U/L Troponin I < 0.015 (0-0.045) ng/ml NT-Pro-B Natriuret Pep 7781 H (0-900) pg/ml Total Protein 6.0 L (6.4-8.2) gm/dl Albumin 2.0 L (3.4-5.0) gm/dl Globulin 4.0 (2.5-4.0) gm/dl Albumin/Globulin Ratio 0.5 L (0.9-2) Lipase 97 (73-393) U/L COVID-19 Eval Order SARS-CoV-2 (PCR) (Negative) Blood Type Antibody Screen 12/31/20 12/31/20 12/31/20 Range/Units 15:50 16:02 16:02 WBC (4.8-10.8) K/uL RBC (4.7-6.1) M/uL Hgb (14.0-18.0) g/dL Hct (42-52) % MCV (80-100) fL MCH (25-34) pg MCHC (32-36) g/dL RDW Std Deviation (36.4-46.3) fL RDW Coeff of Francois (11.5-14.5) % Plt Count (130-400) K/uL MPV (7.4-10.4) fL Absolute Nucleated RBC (0-0) K/uL Nucleated RBC % (auto) % Neutrophils % (Manual) % Lymphocytes % (Manual) % Monocytes % (Manual) % Metamyelocytes % (Man) % Myelocytes % (Man) % Neutrophils # (Manual) (1.4-6.5) K/uL Total Absolute Neuts (1.4-6.5) K/uL Lymphocytes # (Manual) (1.2-3.4) K/uL Total Abs Lymphocytes (1.2-3.4) K/uL Monocytes # (Manual) (0.11-0.59) K/uL Metamyelocytes # (Man) (0-0) K/uL Myelocytes # (Manual) (0-0) K/uL Toxic Granulation Toxic Vacuolation Dohle Bodies Anisocytosis Echinocytes PT (9.0-12.0) Seconds INR (0.9-1.1) APTT (21.0-31.0) Seconds PTT Ratio Sodium (136-145) mmol/L Potassium (3.5-5.1) mmol/L Chloride (98-107) mmol/L Carbon Dioxide (21-32) mmol/L Anion Gap (3-11) BUN (7-18) mg/dl Creatinine (0.6-1.4) mg/dl Est Cr Clr Drug Dosing Est GFR ( Amer) ml/min Est GFR (Non-Af Amer) ml/min BUN/Creatinine Ratio (10-20) Glucose (70-99) mg/dl Calcium (8.5-10.1) mg/dl Phosphorus (2.5-4.9) mg/dl Magnesium (1.8-2.4) mg/dl Total Bilirubin (0.2-1) mg/dl Direct Bilirubin (0-0.2) mg/dl AST (15-37) U/L ALT (12-78) U/L Alkaline Phosphatase (45-117) U/L Troponin I (0-0.045) ng/ml NT-Pro-B Natriuret Pep (0-900) pg/ml Total Protein (6.4-8.2) gm/dl Albumin (3.4-5.0) gm/dl Globulin (2.5-4.0) gm/dl Albumin/Globulin Ratio (0.9-2) Lipase (73-393) U/L COVID-19 Eval Order Covid19 at [facility] SARS-CoV-2 (PCR) NEGATIVE (Negative) Blood Type A Positive Antibody Screen NEGATIVE Administered Medications Amiodarone HCl/Dextrose (Nexterone / D5w) 360 mg in 200 mls @ 33.333 mls/hr IV ONE ONE Stop: 01/01/21 00:59 Last Admin: 12/31/20 19:02 Dose: 33.3 mls/hr Documented by: [id number] Cosigned by: [id number] Phenylephrine HCl 20 mg/ (Dextrose) 502 mls @ 356.546 mls/hr IV .Q1H25M PIETRO; Protocol Stop: 01/30/21 18:44 Last Titration: 12/31/20 21:30 Dose: 2.5 mcg/kg/min, 356.5 mls/hr Documented by: [id number] Titration: 12/31/20 21:15 Dose: 2.4 mcg/kg/min, 342.3 mls/hr Documented by: [id number] Titration: 12/31/20 21:00 Dose: 2.2 mcg/kg/min, 313.8 mls/hr Documented by: [id number] Admin: 12/31/20 20:51 Dose: 2 mcg/kg/min, 285.2 mls/hr Documented by: [id number] Cosigned by: [id number] Titration: 12/31/20 20:51 Dose: 2 mcg/kg/min, 285.2 mls/hr Documented by: [id number] Cosigned by: [id number] Titration: 12/31/20 20:15 Dose: 2 mcg/kg/min, 285.2 mls/hr Documented by: [id number] Titration: 12/31/20 20:00 Dose: 1.8 mcg/kg/min, 256.7 mls/hr Documented by: [id number] Titration: 12/31/20 19:50 Dose: 1.6 mcg/kg/min, 228.2 mls/hr Documented by: [id number] Titration: 12/31/20 19:40 Dose: 1.4 mcg/kg/min, 199.7 mls/hr Documented by: [id number] Titration: 12/31/20 19:30 Dose: 1.2 mcg/kg/min, 171.1 mls/hr Documented by: [id number] Titration: 12/31/20 19:20 Dose: 1 mcg/kg/min, 142.6 mls/hr Documented by: [id number] Titration: 12/31/20 19:12 Dose: 0.9 mcg/kg/min, 128.4 mls/hr Documented by: [id number] Titration: 12/31/20 19:07 Dose: 0.7 mcg/kg/min, 99.8 mls/hr Documented by: [id number] Admin: 12/31/20 19:02 Dose: 0.5 mcg/kg/min, 71.3 mls/hr Documented by: [id number] Cosigned by: [id number] Sodium Chloride (Nss 1000ml) 1,000 mls @ 125 mls/hr IV .Q8H PIETRO Stop: 01/30/21 19:14 Last Admin: 12/31/20 19:17 Dose: 125 mls/hr Documented by: [id number] Albumin Human (Albumin 25%) 12.5 gm in 50 mls @ 50 mls/hr IV Q1H PIETRO Stop: 12/31/20 23:14 Last Admin: 12/31/20 22:02 Dose: 50 mls/hr Documented by: [id number] Infusion: 12/31/20 22:02 Dose: 50 mls/hr Documented by: [id number] Admin: 12/31/20 21:20 Dose: 50 mls/hr Documented by: [id number] Infusion: 12/31/20 21:20 Dose: 50 mls/hr Documented by: [id number] Admin: 12/31/20 20:26 Dose: 50 mls/hr Documented by: [id number] Infusion: 12/31/20 20:23 Dose: 50 mls/hr Documented by: [id number] Admin: 12/31/20 19:23 Dose: 50 mls/hr Documented by: [id number] Discontinued Medications Amiodarone HCl/Dextrose (Amiodarone 150mg / 100ml D5w) Confirm Administered Dose 150 mg IV .STK-MED ONE Stop: 12/31/20 18:50 Last Admin: 12/31/20 18:59 Dose: Not Given Documented by: [id number] Fentanyl Citrate (Fentanyl Citrate 100 Mcg/2 Ml Vial) Confirm Administered Dose 100 mcg .ROUTE .STK-MED ONE Stop: 12/31/20 15:55 Last Admin: 12/31/20 18:57 Dose: Not Given Documented by: [id number] Heparin Sodium (Porcine) (Heparin (Porcine) 1000 Unit/Ml 10 Ml (Market Development Trainer Use Only)) Confirm Administered Dose 10,000 units .ROUTE .STK-MED ONE Stop: 12/31/20 15:55 Last Admin: 12/31/20 18:57 Dose: Not Given Documented by: [id number] Heparin Sodium/Sodium Chloride (Heparin In Nss Infusion 1000 Unit/500 Ml (2 U/Ml) Bag) Confirm Administered Dose 3,000 units IV .STK-MED ONE Stop: 12/31/20 15:56 Last Admin: 12/31/20 18:57 Dose: Not Given Documented by: [id number] Sodium Chloride (Nss 1000ml) 1,000 mls @ 999 mls/hr IV .Q1H1M PIETRO Stop: 12/31/20 17:00 Last Admin: 12/31/20 18:58 Dose: Not Given Documented by: [id number] Parenteral Electrolytes (Normosol-R) 1,000 mls @ 999 mls/hr IV .Q1H1M ONE Stop: 12/31/20 18:59 Last Infusion: 12/31/20 20:38 Dose: 0 mls/hr Documented by: [id number] Admin: 12/31/20 18:58 Dose: 999 mls/hr Documented by: [id number] Amiodarone HCl/Dextrose (Nexterone / D5w) 360 mg in 200 mls @ 33.333 mls/hr IV ONE ONE; Protocol Stop: 01/01/21 00:03 Last Admin: 12/31/20 19:19 Dose: Not Given Documented by: [id number] Parenteral Electrolytes (Normosol-R) 1,000 mls @ 999 mls/hr IV .Q1H1M ONE Stop: 12/31/20 19:11 Last Infusion: 12/31/20 20:38 Dose: 0 mls/hr Documented by: [id number] Admin: 12/31/20 18:58 Dose: 999 mls/hr Documented by: [id number] Digoxin 250 mcg/ Syringe 10 mls @ 2 mls/min IV NOW STA Stop: 12/31/20 18:16 Last Admin: 12/31/20 19:19 Dose: Not Given Documented by: [id number] Amiodarone HCl/Dextrose (Nexterone / D5w) 150 mg in 100 mls @ 600 mls/hr IV NOW STA Stop: 12/31/20 18:59 Last Infusion: 12/31/20 19:13 Dose: 0 mls/hr Documented by: [id number] Cosigned by: [id number] Admin: 12/31/20 18:59 Dose: 600 mls/hr Documented by: [id number] Cosigned by: [id number] Calcium Gluconate 2,000 mg/ (Sodium Chloride) 70 mls @ 240 mls/hr IV NOW STA Stop: 12/31/20 19:32 Last Infusion: 12/31/20 19:47 Dose: 0 mls/hr Documented by: [id number] Admin: 12/31/20 19:23 Dose: 240 mls/hr Documented by: [id number] Midazolam HCl (Midazolam Hcl 1 Mg/Ml 2ml Vial) Confirm Administered Dose 2 mg .ROUTE .STK-MED ONE Stop: 12/31/20 15:56 Last Admin: 12/31/20 18:57 Dose: Not Given Documented by: [id number] Nicardipine HCl (Nicardipine Hcl Inj 2.5 Mg/Ml 10 Ml Amp) Confirm Administered Dose 25 mg .ROUTE .STK-MED ONE Stop: 12/31/20 15:55 Last Admin: 12/31/20 18:57 Dose: Not Given Documented by: [id number] Nitroglycerin/Dextrose (Nitroglycerin/D5w 100mcg/Ml 20ml Syr) Confirm Administered Dose 2,000 mcg .ROUTE .STK-MED ONE Stop: 12/31/20 15:56 Last Admin: 12/31/20 18:57 Dose: Not Given Documented by: [id number] Imaging Data Radiologist's Impression: Chest X-Ray 12/31/20 15:17 XR chest 1V portable CLINICAL HISTORY: Chest Pain COMPARISON STUDY: Chest radiograph and chest CT December 29, 2020. FINDINGS: Left subclavian [id number] is in place. There is no pneumothorax or pleural effusion. Minimal bibasilar opacities favor atelectasis. Enlargement of the cardiac silhouette is noted. This has decreased since exam of December 29, 2020. IMPRESSION: Enlargement of the cardiac silhouette, decreased since prior chest radiograph of December 29, 2020. This may reflect decrease in size of the pericardial effusion. ACT 112: Negative or not required by law. Electronically signed by: Tristin Templeton M.D. 12/31/2020 3:48 PM Discharge Plan Visit Data Chief Complaint: Shortness of Breath/Dyspnea Stated Complaint: SOB ED Provider: Juan Ramon Mills Discharge Problem: Cardiac tamponade, Hypotension, Esophageal cancer, CATE (acute kidney injury), Atrial flutter with rapid ventricular response Discharge Instructions Interventions: ED Discharge Assessment Last Done: 12/31/20 16:04 Discharge Problem: Hypotension Qualifiers: Hypotension type: unspecified hypotension type Qualified Code(s): I95.9 - Hypotension, unspecified Esophageal cancer Qualifiers: Malignant neoplasm of esophagus location: unspecified location Qualified Code(s): C15.9 - Malignant neoplasm of esophagus, unspecified
[2020-12-31 16:26] LABS: ALC (manual) 0.99 K/uL (1.2-3.4); ANC (manual) 6.61 K/uL (1.4-6.5); Anisocytosis Present; Dohle Bodies 2+; Echinocytes 1+; Lymphocytes # (manual) 0.99 K/uL (1.2-3.4); Lymphocytes % (manual) 11.9 %; Metamyelocytes # (manual) 0.07 K/uL (0-0); Metamyelocytes % (manual) 0.8 %; Monocytes # (manual) 0.56 K/uL (0.11-0.59); Monocytes % (manual) 6.8 %; Myelocytes # (manual) 0.07 K/uL (0-0); Myelocytes % (manual) 0.8 %; Neutrophils # (manual) 6.61 K/uL (1.4-6.5); Neutrophils % (manual) 79.7 %; Toxic Granulation 3+; Toxic Vacuolation 1+
--- NOTE | 2020-12-31 17:26 | Cardiac Catheterization ---
ACC Data: [employer] Cardiac Status Clinical evaluation leading to the procedure CAD Presenation: No Sxs, No angina Diagnostic Physicians Name: Saji Armijo MD Closure Device Recommendations: Management Recommendatons (Pericardial window ) Cardiac Cath Procedure Full Procedure Date December 31, 2020 Pre-Procedure Diagnosis Pre-Procedure Diagnosis: Pericardial Disease AUC Score AUC Score: 7 Post-Procedure Diagnosis Post-Procedure Diagnosis: Cardiothoracic Finding (Large pericardial effusion) Procedure(s) Performed Procedure(s) Performed: Pericardiocentesis Cnc Machine Setter Saji Armijo MD Estimated Blood Loss Estimated Blood Loss: 325 cc bloody fluid drained Summary of Findings Large pericardial effusion Hemodynamics Rest Ao:: 66/46 Final Ao: 106/46 LV: N/A Recommendations Recommendations: Management Recommendatons (Pericardial window ) Radiation Exposure (mGy) . Contrast (mls) none Drains Drains: pericardial drain Procedural Complication(s) None I attest to the content of the Intraoperative Record and any orders documented therein. Any exceptions are noted below. PG Care Time/CCT Total # of Minutes Spent Total Time Spent with Patient: Total time spent is greater than 50% in coordination of care (as documented) at patient's floor/unit and/or counseling patient:
--- NOTE | 2020-12-31 17:39 | History & Physical Report ---
Date of Service December 31, 2020 Assessment & Plan (1) Cardiac tamponade: Plan: Pericardial drain placed in the cardiac catheterization lab. Will need transfer once stable for pericardial window. (2) Cardiogenic shock: Plan: 1L NSS given in ER Normosol 2L bolus now Phenylephrine IV drip if vasopressors required following this to maintain MAP > 65 Discussed with ICU team who will continue to manage this (3) Atrial flutter with rapid ventricular response: Plan: Amiodarone bolus and drip. Will defer when to restart anticoagulation to cardiology. (4) Esophageal cancer: Plan: Metastatic adenocarcinoma of distal esophagus (5) CATE (acute kidney injury): Plan: Cr 1.95 from 1.2, Iv fluid resuscitation as above (6) Hypokalemia: Plan: Electrolyte replacement per ICU protocol (7) Hypomagnesemia: Plan: Electrolyte replacement per ICU protocol Admission and Anticipated Discharge Date Admission Date: December 30, 2020 History of Present Illness Chief Complaint: Shortness of breath, hypotension Primary Care Provider: [facility] Zhen Morales is a 75 year old male with history of esophageal cancer who presents to the ER with shortness of breath as a heart alert earlier today. He was recently admitted from December 29 - 2020 due to shortness of breath and diagnosed with a pericardial effusion that was subsequently underwent pericardiocentesis with ~1300 ml of grossly bloody fluid. Gram stain negative, culture pending at this time. 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 He was started on colchicine and discharged yesterday. Although Xarelto was on his discharge list he did not take any last night although he did take his aspirin. He felt fine yesterday but symptoms acutely began this morning and progressively got worse this afternoon and so he called EMS. On arrival in the ER his HR 150s and BP 60/20 on manual check. He was taken emergently to the cardiac catheterization laboratory technician for pericardial drain placement. Patient was seen in the ICU where he remains hypotensive with sBP 70s and Hr 150. He reports feeling improved since admission after fluid removed. Mentation at baseline. Allergies Allergy/AdvReac Type Severity Reaction Status Date / Time No Known Allergies Allergy Unknown Verified 12/31/20 16:09 Home Medications Medication Instructions Recorded Confirmed Type ascorbic acid (vitamin C) 1,000 mg 1 g PO HS tab 11/30/20 12/31/20 History tablet (Vitamin C) aspirin 81 mg tablet,delayed 81 mg PO HS 11/30/20 12/31/20 History release (Adult Aspirin Regimen) atorvastatin 80 mg tablet (Lipitor) 80 mg PO HS 11/30/20 12/31/20 History metoprolol succinate 25 mg 25 mg PO HS 11/30/20 12/31/20 History tablet,extended release 24 hr (Toprol XL) multivitamin (Daily Multi-Vitamin) 1 tab PO HS 11/30/20 12/31/20 History vitamin B complex (B-Complex) 1 tab PO HS 11/30/20 12/31/20 History rivaroxaban 20 mg tablet (Xarelto) 20 mg PO HS 12/01/20 12/31/20 History tramadol 50 mg tablet (Ultram) 50 mg PO Q4H PRN #8 tab 12/07/20 12/31/20 Rx capecitabine 500 mg tablet (Xeloda) 2,000 mg PO BID 12/29/20 12/31/20 History levothyroxine 100 mcg capsule 100 mcg PO DAILY@0300 12/29/20 12/31/20 History (Tirosint) oxaliplatin 50 mg intravenous 0 mg IV Q21D 12/29/20 12/31/20 History solution colchicine 0.6 mg tablet (Colcrys) 0.6 mg PO BID 30 Days #60 tab 12/30/20 12/31/20 Rx Past Med/Surg History Medical History A-fib Had episode while admitted at [facility] in October 2020- per discharge summary "Patient was discovered to have a bout of A. fib in the hospital which converted back to normal sinus rhythm. He will continue taking metoprolol. Also discussed with the patient the efficacy of using anticoagulation to prevent stroke. Patient agreed to starting anticoagulation. Xarelto started on the patient." CATE (acute kidney injury) Anxiety due to SOB Anxiety due to SOB Atrial fibrillation had episode when in hospital and then put on metoprolol Carotid stenosis Right ICA 50% stenosis; left ICA <50% stenosis; seen by vascular surgery- will monitor with yearly carotid dopplers- no surgery needed at this time Chronic obstructive pulmonary disease COPD (chronic obstructive pulmonary disease) Esophageal cancer plan to start chemo Esophageal mass Newly discovered while admitted October 2020 Dx'ed with esophageal cancer- needs mediport placed for chemo GERD (gastroesophageal reflux disease) Hyperlipemia Hyperlipidemia Hypertension Hypertension Hypothyroid Hypothyroidism Lymphadenopathy PTSD (post-traumatic stress disorder) SOB (shortness of breath) on exertion SOB (shortness of breath) on exertion Visual disturbance Initial reason for admission in October 2020. Monocular visual disturbance - carotid ultrasound (50% stenosis to right ICA), ECHO (unremarkable) , CT brain and MRI of brain done- no signs of infarct Resolved prior to discharge Surgical History History of appendectomy History of exploratory laparotomy History of local excision of skin lesion cyst removed History of tonsillectomy and adenoidectomy Hx of appendectomy Hx of esophagogastroduodenoscopy Hx of esophagogastroduodenoscopy Hx of left inguinal hernia repair Hx of local excision of skin lesion cyst removed Port-A-Cath in place (12/07/20) Insertion of Access Port with Fluoroscopy; Left Subclavian Dr. Mcgee 12/07/2020 Family History Other Cancer Social History Smoking Status: Former smoker Second Hand Exposure: No; Do You Dip or Chew Tobacco: No; Hx Alcohol Use: No Hx Substance Use: No Preferred Language: Polish Communication Ability: Effective Manager Metrology Required: No Beliefs That Will Affect Care: None Current Living Situation: Alone Feels Safe at Home: Yes Safety Concerns: Feels Safe At This Time Assistive Devices: Oxygen - Continuous Review of Systems Review of Systems: All systems reviewed & are unremarkable except as noted in HPI & below Physical Exam Constitutional: well developed, + acute distress and + frail appearing Eyes: + anicteric sclerae; normal pupil size ENMT: Mouth: + dry oral mucous membranes Respiratory: + respiratory distress, + retractions and + uses accessory muscles; + abnormal respiratory effort Auscultation: lungs clear to auscultation bilaterally Cardiovascular: Rate/Rhythm: regular rhythm and + tachycardic Heart Sounds: no murmur Extremities: + abnormal capillary refill (6 seconds periperal, 2 seconds central), no calf tenderness and no pedal edema Gastrointestinal (Abdomen): normal bowel sounds, soft, nontender, no hepatosplenomegaly Skin: + mottling Neurologic: moves all extremities and awake; not confused Psychiatric: A+Ox3, euthymic affect Results & Data Results & Data ([facility]) Vital Signs (Past 12 Hours) Vital Signs Temp Pulse Pulse Resp BP BP Pulse Ox 12/31/20 16:05 60/20 L 12/31/20 16:00 155 H 24 12/31/20 15:55 131 H 32 H 12/31/20 15:50 155 H 31 H 12/31/20 15:47 156 H 30 H 62/30 L 12/31/20 15:45 154 H 29 H 12/31/20 15:40 156 H 33 H 12/31/20 15:37 156 H 22 12/31/20 15:30 157 H 33 H 12/31/20 15:25 157 H 26 H 12/31/20 15:21 157 H 29 H 12/31/20 15:08 36.4 C L 157 H 30 H 60/40 L 74 L Diagnostic Findings XR chest 1V portable CLINICAL HISTORY: Chest Pain COMPARISON STUDY: Chest radiograph and chest CT December 29, 2020. FINDINGS: Left subclavian [id number] is in place. There is no pneumothorax or pleural effusion. Minimal bibasilar opacities favor atelectasis. Enlargement of the cardiac silhouette is noted. This has decreased since exam of December 29, 2020. IMPRESSION: Enlargement of the cardiac silhouette, decreased since prior chest radiograph of December 29, 2020. This may reflect decrease in size of the pericardial effusion. ECG Indication: altered mental status Rate (beats per minute): 157 Rhythm: atrial flutter Findings: + ST elevation (Inferior/lateral) Comparison ECG Date: from (December 29, 2020) Change: the following changes noted (Atrial flutter adn ST changes are new) Code Status & VTE Plan Code Status Not addressed - discussed with ICU team Critical Care Time Critical Care Time: Yes Total Critical Care Time: 35 PG Care Time/CCT Total # of Minutes Spent Total Time Spent with Patient: Total time spent is greater than 50% in coordination of care (as documented) at patient's floor/unit and/or counseling patient: Critical Care Time: Yes Total Critical Care Time: 35 Coding Level of Care Code 56219 Initial Inpt Care Lvl 3 Diagnoses Cardiac tamponade I31.4 Atrial flutter with rapid ventricular response I48.92 Cardiogenic shock R57.0 Esophageal cancer C15.9 CATE (acute kidney injury) N17.9 Hypokalemia E87.6 Hypomagnesemia E83.42 Additional Codes Critical Care Time - Critical Care Time: Yes ([id number])
[2020-12-31] MEDS ORDERED: NORMOSOL-R 1,000 ML IV ONE ×2 (17:59→18:11)
[2020-12-31] MEDS ORDERED: 0.2 MICRON FILTER SET 1 EA IV ONE ×2 (18:04→18:29)
[2020-12-31] MEDS ORDERED: AMIODARONE / D5W 360 MG/200 ML BAG IV ONE ×2 (18:04→19:00)
[2020-12-31] MEDS ORDERED: DIGOXIN 250 MCG in SYRINGE 9 ML IV STA (18:12)
[2020-12-31] MEDS ORDERED: ICU PROTOCOL FOR HYPERGLYCEMIA PRN ×2 (18:17→19:05)
[2020-12-31] MEDS ORDERED: STAT IV Infusion **Titration per Protocol STA ×2 (18:29→18:35)
[2020-12-31] MEDS ORDERED: AMIODARONE IV BOLUS & DRIP IV STA (18:29)
[2020-12-31] MEDS ORDERED: AMIODARONE 150MG / 100ML D5W IV ONE (18:49)
[2020-12-31] MEDS ORDERED: AMIODARONE / D5W 150 MG/100 ML BAG IV STA (18:50)
[2020-12-31] MEDS: PHENYLEPHRINE HCL 20 MG in DEXTROSE 5% 500 ML IV SCH ×3 (19:02→22:20)
--- NOTE | 2020-12-31 19:05 | Critical Care Consultation ---
Date of Consultation December 31, 2020 Assessment & Plan (1) Cardiac tamponade: (2) Atrial flutter with rapid ventricular response: (3) Cardiogenic shock: (4) A-fib: (5) Renal failure: (6) Esophageal cancer: Impression: 75-year-old male with metastatic esophageal cancer and pericardial effusion, likely malignant presenting with reaccumulation of his pericardial effusion and tamponade. Recommendations: 1. Neurologic: No current issues. Continue to follow closely. Pain management as needed for the pericardial drain. 2. Cardiovascular: Atrial fibrillation with rapid ventricular response. Cardiology is recommended initiation of amiodarone which is being bolused and then will start a drip. Regarding his tamponade, I think he is likely preload dependent. Will aggressively resuscitate with IV fluids and try Fuad-Synephrine to try and maintain mean arterial pressures greater than 65. Check random cortisol. The patient likely requires pericardial window per cardiology. We will see if we can get him accepted at a facility which has the capabilities of performing this procedure. Will defer to cardiology serial echocardiograms as with the bloody effusion the small bore catheter may be subject to clotting and may require intermittent flushing. Could consider IV digoxin to try and slow his atrial fibrillation rate although with the pericardial drain in place, it is likely that there is significant mechanical irritation which will likely drive his atrial fibrillation and it is unlikely that we will get under good control until that catheter is removed. Given his hypotension, he is not a candidate for AV prasad blocking agents. Holding anticoagulation for now 3. Respiratory: Continue supplemental oxygen titrated to keep saturations at or above 89%. 4. GI: Keep n.p.o. for now in the event the patient requires additional procedures. He has a history of esophageal cancer. See comments below. 5. Renal: Acute renal failure: Suspect hypoperfusion due to hypotension and tachycardia. Aguilar catheter will be placed. Will check urinalysis as well as urine sodium and urine creatinine. If the patient's kidney function should deteriorate, low threshold for nephrology consultation. Acid-base status appears normal based on his chemistry panel. Electrolytes will be replaced per protocol. 6. Heme-onc: Metastatic esophageal cancer: I suspect the patient's pericardial effusion is likely malignant. He is not a candidate for additional chemotherapy at this point time. May be appropriate to define goals of therapy in this patient given his metastatic esophageal cancer. We will see how he responds. 7. ID: No current issues. Holding antibiotics for now. 8. Endocrine: Glycemic control per protocol. Continue Synthroid. Check TSH. Check random cortisol. The patient is critically ill at this point time. A total of 62 minutes in critical care time was spent evaluation management of this patient. Plan was discussed with the bedside critical care nurse as well as with the patient. Questions were answered to the best of my ability. He expressed understanding and is in agreement with the plan as outlined History of Present Illness Attending Physician: Gm Griffith MD History of Present Illness Asked by hospitalist to assist in management of this patient with pericardial effusion and tamponade status post pericardial drain. History is obtained from discussion with cardiology, internal medicine, and the patient at bedside as well as review the electronic medical record. The patient is a 75-year-old male with a history of metastatic adenocarcinoma currently on salvage chemotherapy. He is under the care of Dr. Landrum and just completed his first cycle of chemotherapy. He has a port in place. The patient was admitted to the facility 12/29/2020 with complaints of shortness of breath. CT angiogram showed no PE but did show a large pericardial effusion. Echocardiogram was performed which did not show overt tamponade physiology. The patient was eventually taken to the [facility] that day by Dr. Khan and had a total of 1.3 L of bloody fluid removed. Cell count differential was not suggest mariia of infection. Cytology is currently pending. Patient was dismissed from the hospital 12/30/2020 but return to the emergency room today with complaints of shortness of breath. He was also found to be tachycardic with rates in the 150s and hypotensive. Bedside echo performed by the ER staff demonstrated large pericardial effusion with concern for tamponade. Heart alert was called and the patient was taken to the [facility] where a pericardial drain was placed. Patient was subsequently brought to the ICU. He remains tachycardic and hypotensive I was contacted by the nurse initially and was on my way to evaluate the patient when I was contacted by the hospitalist as well as the corporate statistical financial analyst. I recommended the patient receive aggressive fluid resuscitation. I presented to the bedside and repeated his echocardiogram. I cannot clearly see evidence of pericardial effusion at this point time. The patient states that he is feeling much better since having the fluid removed. Allergies Allergy/AdvReac Type Severity Reaction Status Date / Time No Known Allergies Allergy Unknown Verified 12/31/20 16:09 Home Medications Medication Instructions Recorded Confirmed Type ascorbic acid (vitamin C) 1,000 mg 1 g PO HS tab 11/30/20 12/31/20 History tablet (Vitamin C) aspirin 81 mg tablet,delayed 81 mg PO HS 11/30/20 12/31/20 History release (Adult Aspirin Regimen) atorvastatin 80 mg tablet (Lipitor) 80 mg PO HS 11/30/20 12/31/20 History metoprolol succinate 25 mg 25 mg PO HS 11/30/20 12/31/20 History tablet,extended release 24 hr (Toprol XL) multivitamin (Daily Multi-Vitamin) 1 tab PO HS 11/30/20 12/31/20 History vitamin B complex (B-Complex) 1 tab PO HS 11/30/20 12/31/20 History rivaroxaban 20 mg tablet (Xarelto) 20 mg PO HS 12/01/20 12/31/20 History tramadol 50 mg tablet (Ultram) 50 mg PO Q4H PRN #8 tab 12/07/20 12/31/20 Rx capecitabine 500 mg tablet (Xeloda) 2,000 mg PO BID 12/29/20 12/31/20 History levothyroxine 100 mcg capsule 100 mcg PO DAILY@0300 12/29/20 12/31/20 History (Tirosint) oxaliplatin 50 mg intravenous 0 mg IV Q21D 12/29/20 12/31/20 History solution colchicine 0.6 mg tablet (Colcrys) 0.6 mg PO BID 30 Days #60 tab 12/30/20 12/31/20 Rx Patient History Medical History A-fib Had episode while admitted at [facility] in October 2020- per discharge summary "Berto chinchilla was discovered to have a bout of A. fib in the hospital which converted back to normal sinus rhythm. He will continue taking metoprolol. Also discussed with the patient the efficacy of using anticoagulation to prevent stroke. Patient agreed to starting anticoagulation. Xarelto started on the patient." CATE (acute kidney injury) Anxiety due to SOB Anxiety due to SOB Atrial fibrillation had episode when in hospital and then put on metoprolol Carotid stenosis Right ICA 50% stenosis; left ICA <50% stenosis; seen by vascular surgery- will monitor with yearly carotid dopplers- no surgery needed at this time Chronic obstructive pulmonary disease COPD (chronic obstructive pulmonary disease) Esophageal cancer plan to start chemo Esophageal mass Newly discovered while admitted October 2020 Dx'ed with esophageal cancer- needs mediport placed for chemo GERD (gastroesophageal reflux disease) Hyperlipemia Hyperlipidemia Hypertension Hypertension Hypothyroid Hypothyroidism Lymphadenopathy PTSD (post-traumatic stress disorder) SOB (shortness of breath) on exertion SOB (shortness of breath) on exertion Visual disturbance Initial reason for admission in October 2020. Monocular visual disturbance - carotid ultrasound (50% stenosis to right ICA), ECHO (unremarkable) , CT brain and MRI of brain done- no signs of infarct Resolved prior to discharge Surgical History History of appendectomy History of exploratory laparotomy History of local excision of skin lesion cyst removed History of tonsillectomy and adenoidectomy Hx of appendectomy Hx of esophagogastroduodenoscopy Hx of esophagogastroduodenoscopy Hx of left inguinal hernia repair Hx of local excision of skin lesion cyst removed Port-A-Cath in place (12/07/20) Insertion of Access Port with Fluoroscopy; Left Subclavian Dr. Mcgee 12/07/2020 Family History Other Cancer Social History Smoking Status: Former smoker Second Hand Exposure: No; Hx Alcohol Use: No (quit) Hx Substance Use: No Preferred Language: Niuean Communication Ability: Effective Clinical Unit Coordinator Required: No Beliefs That Will Affect Care: None Current Living Situation: Alone Feels Safe at Home: Yes Assistive Devices: None Review of Systems Review of Systems: All systems reviewed & are unremarkable except as noted in Subjective Physical Exam Constitutional: well developed and well nourished; no acute distress Neck: trachea midline, no thyromegaly Respiratory: normal respiratory effort, lungs clear to auscultation Cardiovascular: Rate/Rhythm: regular rhythm and + tachycardic Vessels: no JVD and no carotid bruit Extremities: no calf tenderness and no edema Distant heart sounds, no pulsus paradoxus Chest (Breasts): normal inspection/palpation of breasts Gastrointestinal (Abdomen): normal bowel sounds, soft, nontender, no hepatosplenomegaly Psychiatric: A+Ox3, euthymic affect Lymphatic: no cervical or axillary lymphadenopathy Results & Data Results & Data ([facility]) Vital Signs (Past 12 Hours) Vital Signs Temp Pulse Pulse Resp BP BP Pulse Ox 12/31/20 16:05 60/20 L 12/31/20 16:00 155 H 24 12/31/20 15:55 131 H 32 H 12/31/20 15:50 155 H 31 H 12/31/20 15:47 156 H 30 H 62/30 L 12/31/20 15:45 154 H 29 H 12/31/20 15:40 156 H 33 H 12/31/20 15:37 156 H 22 12/31/20 15:30 157 H 33 H 12/31/20 15:25 157 H 26 H 12/31/20 15:21 157 H 29 H 12/31/20 15:08 36.4 C L 157 H 30 H 60/40 L 74 L Critical Care Results & Data Vital Signs (Past 12 Hours) Vital Signs Temp Pulse Pulse Resp BP BP Pulse Ox 12/31/20 16:05 60/20 L 12/31/20 16:00 155 H 24 12/31/20 15:55 131 H 32 H 12/31/20 15:50 155 H 31 H 12/31/20 15:47 156 H 30 H 62/30 L 12/31/20 15:45 154 H 29 H 12/31/20 15:40 156 H 33 H 12/31/20 15:37 156 H 22 12/31/20 15:30 157 H 33 H 12/31/20 15:25 157 H 26 H 12/31/20 15:21 157 H 29 H 12/31/20 15:08 36.4 C L 157 H 30 H 60/40 L 74 L Lab & Micro Results (Past 24 Hours) RBC 3.51 M/uL (4.7-6.1) L 12/31/20 WBC 8.29 K/uL (4.8-10.8) 12/31/20 Hgb 10.5 g/dL (14.0-18.0) L 12/31/20 Hct 31.5 % (42-52) L 12/31/20 MCV 89.7 fL (80-100) 12/31/20 MCH 29.9 pg (25-34) 12/31/20 MCHC 33.3 g/dL (32-36) 12/31/20 RDW Standard Deviation 48.0 fL (36.4-46.3) H 12/31/20 RDW Coefficient of Variation 17.6 % (11.5-14.5) H 12/31/20 Plt Count 442 K/uL (130-400) H 12/31/20 MPV 8.8 fL (7.4-10.4) 12/31/20 Nucleated Red Blood Cells % (auto) 1.9 % 12/31/20 Nucleated RBC Absolute Count (auto) 0.16 K/uL (0-0) H 12/31/20 ANC 6.61 K/uL (1.4-6.5) H 12/31/20 ALC 0.99 K/uL (1.2-3.4) L 12/31/20 Neutrophils % (Manual) 79.7 % 12/31/20 Lymphocytes % (Manual) 11.9 % 12/31/20 Monocytes % (Manual) 6.8 % 12/31/20 Metamyelocytes % (manual) 0.8 % 12/31/20 Myelocytes % (Manual) 0.8 % 12/31/20 Neutrophils # (Manual) 6.61 K/uL (1.4-6.5) H 12/31/20 Lymphocytes # (Manual) 0.99 K/uL (1.2-3.4) L 12/31/20 Monocytes # (Manual) 0.56 K/uL (0.11-0.59) 12/31/20 Metamyelocytes # (Manual) 0.07 K/uL (0-0) H 12/31/20 Myelocytes # (Manual) 0.07 K/uL (0-0) H 12/31/20 Echinocytes 1+ 12/31/20 Anisocytosis Present 12/31/20 Toxic Granulation 3+ 12/31/20 Toxic Vacuolation 1+ 12/31/20 Dohle Bodies 2+ 12/31/20 Na 130 mmol/L (136-145) L 12/31/20 K 3.3 mmol/L (3.5-5.1) L 12/31/20 Cl 98 mmol/L (98-107) 12/31/20 CO2 15 mmol/L (21-32) L 12/31/20 Anion Gap 17.0 (3-11) H 12/31/20 BUN 47 mg/dl (7-18) H 12/31/20 Creatinine 1.95 mg/dl (0.6-1.4) H 12/31/20 Estimated GFR ( Amer) 38.2 ml/min 12/31/20 Estimated GFR (Non-Af Amer) 32.9 ml/min 12/31/20 BUN/Creatinine Ratio 24.3 (10-20) H 12/31/20 Glu 168 mg/dl (70-99) H 12/31/20 Ca 8.0 mg/dl (8.5-10.1) L 12/31/20 Phosphorus Level 4.2 mg/dl (2.5-4.9) 12/31/20 Total Bilirubin 0.8 mg/dl (0.2-1) 12/31/20 Direct Bilirubin 0.4 mg/dl (0-0.2) H 12/31/20 AST 23 U/L (15-37) 12/31/20 ALT 27 U/L (12-78) 12/31/20 Alkaline Phosphatase 116 U/L (45-117) 12/31/20 TP 6.0 gm/dl (6.4-8.2) L 12/31/20 Albumin 2.0 gm/dl (3.4-5.0) L 12/31/20 Globulin 4.0 gm/dl (2.5-4.0) 12/31/20 Albumin/Globulin Ratio 0.5 (0.9-2) L 12/31/20 Mg 2.2 mg/dl (1.8-2.4) 12/31/20 15:35 12/31/20 Calcium Level 8.0 mg/dl (8.5-10.1) L 12/31/20 15:35 12/31/20 Prothromb Time International Ratio 1.6 (0.9-1.1) H 12/31/20 15:35 12/31/20 Diagnostic Findings (Past 24 Hours) Chest X-Ray 12/31/20 15:17 XR chest 1V portable CLINICAL HISTORY: Chest Pain COMPARISON STUDY: Chest radiograph and chest CT December 29, 2020. FINDINGS: Left subclavian [id number] is in place. There is no pneumothorax or pleural effusion. Minimal bibasilar opacities favor atelectasis. Enlargement of the cardiac silhouette is noted. This has decreased since exam of December 29, 2020. IMPRESSION: Enlargement of the cardiac silhouette, decreased since prior chest radiograph of December 29, 2020. This may reflect decrease in size of the pericardial effusion. ACT 112: Negative or not required by law. Electronically signed by: Tristin Templeton M.D. 12/31/2020 3:48 PM RT Ventilator Mngmt (Last Documented) Ventilator Ordered Settings Respiratory Rate 24 12/31/20 16:00 Ventilator - PT Measurements Respiratory Rate 24 Coding Level of Care Code Critical Care 1st 30-74 mins Diagnoses Cardiac tamponade I31.4 Atrial flutter with rapid ventricular response I48.92 Cardiogenic shock R57.0 A-fib I48.91 Renal failure N19 Esophageal cancer C15.9
[2020-12-31] MEDS ORDERED: CALCIUM GLUCONATE 10% 2,000 MG in SODIUM CHLORIDE 0.9% 50 ML IV STA (19:15)
[2020-12-31] MEDS ORDERED: traMADol HCL 50 MG TABLET PO PRN (19:15)
[2020-12-31] MEDS: ALBUMIN 25% 12.5 GM/50 ML VIAL IV SCH ×4 (19:23→22:02)
--- NOTE | 2020-12-31 20:39 | Communication Note ---
Date of Service: December 31, 2020 Discussed recommended transfer to tertiary care facility for evaluation of possible pericardial window. Patient agreeable. 2035: [place] [facility] [place] possible transfer for pericardial window per interventionalist recommendations. Spoke with Dr. Nannetet Cárdenas (Cardiothoracic Surgery), Dr. Adenike Max (MICU). Morral that the patient would be better suited in the medical ICU with thoracic surgery consult. 2111: Dr. Moore (Surgical ICU), Dr. Ordoñez (Thoracic ICU). Patient to be accepted to the [facility] at [facility] Waiting for air transport. Updated patient on acceptance to [facility] and air transport. I have personally spent 43 minutes of critical care time in the direct management of this patient. This is a life/limb threatening event. This includes time spent evaluating patient, direct bedside care, chart review, placing orders, interpretation of diagnostic studies, discussion with consultants, patient, and family members, as well as other required patient management activities. This time is exclusive of all separately billable procedures, and teaching time and separate from and in addition to any other critical care service time. Coding Level of Care Code Critical Care umesh alcarazt'l 30 min Time Spent (min) 43
[2020-12-31] MEDS ORDERED: HEPARIN SOD 5,000 UNIT/0.5 ML VIAL SQ SCH (22:00)
[2020-12-31] MEDS ORDERED: HEPARIN 100 UNIT/ML 5ML FLUSH FLUSH PRN (22:21)
[2021-01-01] MEDS ORDERED: AMIODARONE / D5W 360 MG/200 ML BAG IV SCH (01:00)
[2021-01-01] MEDS ORDERED: LEVOTHYROXINE SODIUM 100 MCG TABLET PO SCH (03:00)
[2021-01-01] MEDS ORDERED: ICU ELECTROLYTE REPLACEMENT PROTOCOL SCH (06:00)
--- NOTE | 2021-01-01 16:08 | XCELERA ---
[id number]
--- NOTE | 2021-01-02 11:53 | Electrocardiogram Report ---
Test Reason : Blood Pressure : / mmHG Vent. Rate : 157 BPM Atrial Rate : 314 BPM P-R Int : 000 ms QRS Dur : 066 ms QT Int : 304 ms P-R-T Axes : 000 043 064 degrees QTc Int : 491 ms Atrial flutter with 2:1 A-V conduction Low voltage QRS Nonspecific ST abnormality Abnormal ECG When compared with ECG of 29-DEC-2020 10:29, Atrial flutter has replaced Sinus rhythm Confirmed by Hiram Kong ([id number]) on 01/02/2021 11:52:51 AM Referred By: REFERRED SELF Confirmed By:Hiram Kong
--- NOTE | 2021-01-02 11:54 | Electrocardiogram Report ---
Test Reason : Blood Pressure : / mmHG Vent. Rate : 153 BPM Atrial Rate : 089 BPM P-R Int : 000 ms QRS Dur : 070 ms QT Int : 316 ms P-R-T Axes : 000 046 057 degrees QTc Int : 504 ms Atrial flutter with 2 to [address] and T wave abnormality Abnormal ECG When compared with ECG of 31-DEC-2020 15:19, (unconfirmed) No significant change Confirmed by Hiram Kong ([id number]) on 01/02/2021 11:54:24 AM Referred By: REFERRED SELF Confirmed By:Hiram Kong
--- NOTE | 2021-01-16 16:35 | Discharge Summary ---
Date of Service January 01, 2021 Admission HPI Per Admitting Provider Zhen Morales is a 75 year old male with history of esophageal cancer who presents to the ER with shortness of breath as a heart alert earlier today. He was recently admitted from December 292020 due to shortness of breath and diagnosed with a pericardial effusion that was subsequently underwent pericardiocentesis with ~1300 ml of grossly bloody fluid. Gram stain negative, culture pending at this time. 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 He was started on colchicine and discharged yesterday. Although Xarelto was on his discharge list he did not take any last night although he did take his aspirin. He felt fine yesterday but symptoms acutely began this morning and progressively got worse this afternoon and so he called EMS. On arrival in the ER his HR 150s and BP 60/20 on manual check. He was taken emergently to the [facility] for pericardial drain placement. Patient was seen in the ICU where he remains hypotensive with sBP 70s and Hr 150. He reports feeling improved since admission after fluid removed. Mentation at baseline. Principal Diagnosis Cardiac tamponade Atrial fibrillation with rapid ventricular rate Discharge Exam Patient not examined on day of discharge since he was transferred overnight Discharge Data Allergies Allergy/AdvReac Type Severity Reaction Status Date / Time No Known Allergies Allergy Unknown Verified 12/31/20 16:09 Consultations 12/31/20 16:19 ED Decision to Admit Stat 12/31/20 17:35 Consult Internal Medicine Routine 12/31/20 17:51 Consult Seafood Preparer Routine 12/31/20 21:26 Burn CD for patient Stat Procedures Performed Operation Date: 12/31/20 15:50 Actual Procedures p Pericardiocentesis Initial - Saji Armijo MD s Fluoroscopy Up To 1 Hour - Saji Armijo MD Ordered Studies 12/31/20 15:17 US point of care ultrasound Stat 12/31/20 15:48 Cath Imgs for PACS use only Stat Hospital Course (1) Cardiac tamponade: Zhen Morales is a 75 year old male admitted to [facility] from December 312020 with recent pericardial effusion secondary to esophageal cancer who presented to the ER with shortness of breath and hypotension and diagnosed with cardiac tamponade secondary to recurrent pericardial effusion. He underwent emergent pericardial drain. He remained tachycardic and hypotensive following this and was transferred to the ICU for fluid resuscitation and management of atrial fibrillation with rapid ventricular rate. ICU discussed further care with [facility] and he is accepted for transfer to [facility] medical ICU. (2) Cardiogenic shock: (3) Atrial flutter with rapid ventricular response: (4) Esophageal cancer: (5) CATE (acute kidney injury): (6) Hypokalemia: (7) Hypomagnesemia: Total Time Total Time Spent Total Time Spent (In Minutes): 0 Discharge Plan Discharge Items Patient Disposition: Transfer Acute Care Hospital Reason For Visit: CARDIAC TEMPONADE Follow-up/Referrals: [facility] [Primary Care Provider] - Stand-Alone Forms: [facility] Skilled Items Patient informed of condition?: Yes DNR: No Discharge Level of Care: Other Communicable Disease: No Discharge Prognosis: Other Lines: Peripheral IV Urinary Catheter: Yes Medications and DC Order Prescriptions: Continued aspirin [Adult Aspirin Regimen] 81 mg tablet,delayed release (DR/EC) 81 mg PO HS RF: 0 metoprolol succinate [Toprol XL] 25 mg tablet extended release 24 hr 25 mg PO HS RF: 0 vitamin B complex [B-Complex] Tablet 1 tab PO HS RF: 0 atorvastatin [Lipitor] 80 mg tablet 80 mg PO HS RF: 0 multivitamin [Daily Multi-Vitamin] Tablet 1 tab PO HS RF: 0 ascorbic acid (vitamin C) [Vitamin C] 1,000 mg tablet 1 g PO HS RF: 0 Xarelto 20 mg Tablet 20 mg PO HS RF: 0 tramadol [Ultram] 50 mg tablet 50 mg PO Q4H PRN (Reason: pain) Qty: 8 RF: 0 levothyroxine [Tirosint] 100 mcg Capsule 100 mcg PO DAILY@0300 RF: 0 oxaliplatin 50 mg Recon Soln 0 mg IV Q21D RF: 0 capecitabine [Xeloda] 500 mg Tablet 2,000 mg PO BID RF: 0 colchicine [Colcrys] 0.6 mg Tablet 0.6 mg PO BID 30 Days Qty: 60 RF: 0 Admission Data Admit Date/Time: 12/31/20 17:50 Attending Provider: Gm Griffith Admit Provider: Gm Griffith Primary Care Provider: [facility] Other Interventions: Discharge Summary Assessment (RN) Last Done: 01/01/21 00:20 Coding Level of Care Code None Diagnoses Cardiac tamponade I31.4 Cardiogenic shock R57.0 Atrial flutter with rapid ventricular response I48.92 Esophageal cancer C15.9 Malignant neoplasm of esophagus location: unspecified location CATE (acute kidney injury) N17.9 Hypokalemia E87.6 Hypomagnesemia E83.42
== END 2021-01-01 00:12 | disposition short-term general hospital (02) | DRG 314 ==
LOC: ED 15:08 → CC 16:02 → 1E 17:50
DX: R57.0 Cardiogenic shock; I31.3 Pericardial effusion (noninflammatory); I31.4 Cardiac tamponade; Z99.81 Dependence on supplemental oxygen; E87.6 Hypokalemia; Z87.891 Personal history of nicotine dependence; N17.9 Acute kidney failure, unspecified; Z79.82 Long term (current) use of aspirin; I48.91 Unspecified atrial fibrillation; C15.9 Malignant neoplasm of esophagus, unspecified